=== PATIENT | female | born 1955 | race Caucasian/White ===

== ENCOUNTER 2018-08-05 10:51 | Inpatient (IN) | payer MEDICARE ==
--- NOTE | 2018-08-05 11:08 | C.PDOC ---
History Of Present Illness 62 y/o female pt with hx of CABG presents to the ER complaining of palpitations. Pt has a port in her right upper chest. Pt has lymphoma and is receiving chemotherapy. Currently pt has a fever in the ER. Pt denies cough, chills, chest pain, nausea, SOB and vomiting. Pt notes she is visiting for the holiday and is from [place]. <Mami Childress - Last Filed: 08/05/18 14:10> History Per: Patient History/Exam Limitations: no limitations Onset/Duration Of Symptoms: Hrs Current Symptoms Are (Timing): Still Present <Mami Childress - Last Filed: 08/05/18 14:10> <Chaim Mccarty M - Last Filed: 08/12/18 13:14> Time Seen by Provider: 08/05/18 10:55 Chief Complaint (Nursing): Palpitations Past Medical History Reviewed: Historical Data, Nursing Documentation, Vital Signs Vital Signs: Last Vital Signs Temp 101.5 F H 08/05/18 11:02 Pulse 162 H 08/05/18 11:02 Resp 28 H 08/05/18 11:02 BP 129/91 H 08/05/18 11:02 Pulse Ox 99 08/05/18 11:02 Surgical History: CABG Family History: States: Unknown Family Hx <Mami Childress - Last Filed: 08/05/18 14:10> Vital Signs: Last Vital Signs Temp 97.8 F 08/10/18 15:00 Pulse 71 08/10/18 15:00 Resp 20 08/10/18 15:00 BP 101/63 08/10/18 15:00 Pulse Ox 96 08/10/18 15:00 <Chaim Mccarty M - Last Filed: 08/12/18 13:14> Review Of Systems Except As Marked, All Systems Reviewed And Found Negative. Constitutional: Positive for: Fever. Negative for: Chills Cardiovascular: Positive for: Palpitations. Negative for: Chest Pain Respiratory: Negative for: Cough, Shortness of Breath Gastrointestinal: Negative for: Nausea, Vomiting <Mami Childress - Last Filed: 08/05/18 14:10> Physical Exam - Physical Exam Appears: Non-toxic, No Acute Distress Skin: Normal Color, Warm, Dry Head: Normacephalic Eye(s): bilateral: Normal Inspection, EOMI Chest: Symmetrical, No Deformity Cardiovascular: Other (A-fib) Respiratory: Normal Breath Sounds Extremity: Normal ROM (x4) Neurological/Psych: Oriented x3, Normal Speech, Normal Cognition <FiorMami Jimmy - Last Filed: 08/05/18 14:10> ED Course And Treatment - Laboratory Results Result Diagrams: 08/05/18 11:12 08/05/18 11:12 Lab Interpretation: Abnormal ECG: Interpreted By Me, Viewed By Me ECG Rhythm: Atrial Fibrillation Rate From EC O2 Sat by Pulse Oximetry: 99 (RA) Pulse Ox Interpretation: Normal - Radiology CXR: Interpreted by Me CXR Interpretation: Yes: No Acute Disease Progress Note: Treated with cardizem 10 mg IV bolus and Cardizem drip. Patient treated with vancomycin and zosyn. Treated with 2 Liters NSS. tylenol 650 mg PO. Case discussed with Dr Vega and accepts for ICU. Case discussed with Dr Tyler Beavers who accepts patient Reassessment Condition: Unchanged - Physician Consult Information Physician Contacted: Una Beavers Outcome Of Conversation: admit <Mami Childress - Last Filed: 08/05/18 14:10> - Laboratory Results Result Diagrams: 08/10/18 07:56 08/10/18 07:56 <Chaim Mccarty - Last Filed: 08/12/18 13:14> Medical Decision Making Medical Decision Making: Impression: Palpitations plans: -- EKG -- chem labs -- blood work -- cardizem -- IV fluids -- blood cx -- urine cx -- UA <Mami Childress - Last Filed: 08/05/18 14:10> Disposition - Disposition Disposition Time: 13:00 - POA Present On Arrival: None <Mami Childress - Last Filed: 08/05/18 14:10> <Chaim Mccarty - Last Filed: 08/12/18 13:14> - Disposition Disposition: HOSPITALIZED Condition: CRITICAL - Clinical Impression Clinical Impression: Atrial fibrillation with rapid ventricular response, Sepsis - PA / TRAINING PROJECT MANAGER / Resident Statement / has reviewed & agrees with the documentation as recorded. - Scribe Statement The provider has reviewed the documentation as recorded by the [facility] Do All medical record entries made by the Scribe were at my direction and personally dictated by me. I have reviewed the chart and agree that the record accurately reflects my personal performance of the history, physical exam, medical decision making, and the department course for this patient. I have also personally directed, reviewed, and agree with the discharge instructions and disposition. <Mami Childress - Last Filed: 08/05/18 14:10>
[2018-08-05 11:17] LABS: BASO % 3.2 % (0.0-2.0); EOS % 4.1 % (0.0-4.0); HEMOGLOBIN 10.1 g/dL (11.0-16.0); LYMPH # 0.1 K/uL (1.0-4.3); LYMPH % 20.5 % (20.0-40.0); MEAN CELL VOLUME 78.7 fL (81.0-99.0); MEAN CORPUSCULAR HEMOGLOBIN 25.9 pg (27.0-31.0); MEAN CORPUSCULAR HGB CONC 32.9 g/dL (33.0-37.0); MONO # 0.2 K/uL (0.0-0.8); NEUT % 10.8 % (50.0-75.0); NRBC % 0.2 % (0.0-2.0); RBC 3.9 Mil/uL (3.80-5.20); RED CELL DISTRIBUTION WIDTH 18.8 % (11.5-14.5)
[2018-08-05] MEDS ORDERED: Sodium Chloride 0.9% 1,000 ML IV ONE ×2 (11:30→11:58)
[2018-08-05 11:38] LABS: VENOUS BLOOD GAS BASE EXCESS 6.4 mmol/L (0.0-2.0); VENOUS BLOOD GAS PCO2 36 mmHg (40-60); VENOUS BLOOD GAS PO2 18 mm/Hg (30-55); VENOUS BLOOD PH 7.52 (7.32-7.43)
[2018-08-05 11:40] LABS: WHITE BLOOD COUNT 0.4 K/uL (4.8-10.8)
[2018-08-05 11:42] LABS: MONO % 61.4 % (0.0-10.0)
[2018-08-05 11:43] LABS: INR 1.5; PROTHROMBIN TIME 16.1 SECONDS (9.7-12.2)
[2018-08-05 11:49] LABS: ALB/GLOB RATIO 1.3 (1.0-2.1); ALBUMIN 3.5 g/dL (3.5-5.0); ALT/SGPT 13 U/L (9-52); AST/SGOT 12 U/L (14-36); BLOOD UREA NITROGEN 11 mg/dL (7-17); CALCIUM 8.8 mg/dl (8.6-10.4); GFR NON-AFRICAN AMERICAN > 60
[2018-08-05] MEDS ORDERED: Piperacillin/Tazobact 3.375 gm 100 ML IV STA (11:54)
[2018-08-05 11:55] LABS: B-TYPE NATRIURETIC PEPTIDE 8060 pg/mL (0-900)
[2018-08-05] MEDS ORDERED: Vancomycin 1 GM 1 GM/250 ML BAG IV SCH (12:00)
[2018-08-05] MEDS ORDERED: Piperacillin/Tazobact 3.375 gm 100 ML IVPB ONE (12:02)
[2018-08-05] MEDS ORDERED: Vancomycin 1 GM 1 GM/250 ML BAG IVPB ONE (12:03)
--- NOTE | 2018-08-05 13:08 | CP.PCM.HP ---
History of Present Illness - History of Present Illness History of Present Illness: pt presented to ed for palpitation nausea and vomiting befor coming pt was on chemotherapy treatment for lymphoma Present on Admission - Present on Admission Any Indicators Present on Admission: Yes Review of Systems - Review of Systems Systems not reviewed;Unavailable: Acuity of Condition, Unstable Vital Signs - Constitutional Constitutional: Anorexia, Fever - EENT Eyes: As Per HPI Ears: As Per HPI Nose/Mouth/Throat: As Per HPI - Breasts Breasts: As Per HPI - Cardiovascular Cardiovascular: Irregular Heart Rhythm, Leg Edema - Respiratory Respiratory: As Per HPI - Gastrointestinal Gastrointestinal: As Per HPI - Genitourinary Genitourinary: As Per HPI - Reproductive: Female Reproductive:Female: As Per HPI - Menstruation Menstruation: As Per HPI - Musculoskeletal Musculoskeletal: As Per HPI - Integumentary Integumentary: As Per HPI - Neurological Neurological: As Per HPI - Endocrine Endocrine: As Per HPI - Hematologic/Lymphatic Hematologic: As Per HPI Past Patient History - Past Social History Smoking Status: Never Smoked - CARDIAC Hx Atrial Fibrillation: Yes Other/Comment: quadruple bypass - ENDOCRINE/METABOLIC Hx Diabetes Mellitus Type 2: Yes - PSYCHIATRIC Hx Substance Use: No - SURGICAL HISTORY Hx Coronary Artery Bypass Graft: Yes Meds Allergies/Adverse Reactions: Allergies Allergy/AdvReac Type Severity Reaction Status Date / Time No Known Allergies Allergy Verified 08/05/18 10:58 Physical Exam - Constitutional Appears: In Acute Distress - Head Exam Head Exam: ATRAUMATIC - Eye Exam Eye Exam: Normal appearance Pupil Exam: NORMAL ACCOMODATION - ENT Exam Additional comments: small ulcer mouth - Neck Exam Neck exam: Positive for: Full Rom - Respiratory Exam Respiratory Exam: Decreased Breath Sounds - Cardiovascular Exam Cardiovascular Exam: Tachycardia, Irregular Rhythm - GI/Abdominal Exam GI & Abdominal Exam: Normal Bowel Sounds - Extremities Exam Extremities exam: Positive for: normal inspection, pedal edema - Back Exam Back exam: NORMAL INSPECTION - Neurological Exam Neurological exam: Alert, Oriented x3 - Psychiatric Exam Psychiatric exam: Normal Affect - Skin Skin Exam: Normal Color Results - Vital Signs Recent Vital Signs: Last Vital Signs Temp 101.5 F H 08/05/18 11:02 Pulse 151 H 08/05/18 12:22 Resp 18 08/05/18 12:22 BP 120/82 08/05/18 12:22 Pulse Ox 98 08/05/18 12:22 - Labs Result Diagrams: 08/05/18 11:12 08/05/18 11:12 Labs: Laboratory Results - last 24 hr 08/05/18 08/05/18 08/05/18 11:12 11:12 11:12 WBC 0.4 L* RBC 3.90 Hgb 10.1 L Hct 30.7 L MCV 78.7 L MCH 25.9 L MCHC 32.9 L RDW 18.8 H Plt Count 105 L MPV 8.0 Neut % (Auto) 10.8 L Lymph % (Auto) 20.5 [place] % (Auto) 61.4 H Eos % (Auto) 4.1 H Baso % (Auto) 3.2 H Neut # (Auto) 0.0 L Lymph # (Auto) 0.1 L [place] # (Auto) 0.2 Eos # (Auto) 0.0 Baso # (Auto) 0.0 Total Counted Cancelled Neutrophils % (Manual) Cancelled Band Neutrophils % Cancelled Lymphocytes % (Manual) Cancelled Reactive Lymphs % Cancelled Monocytes % (Manual) Cancelled Eosinophils % (Manual) Cancelled Basophils % (Manual) Cancelled Metamyelocytes % Cancelled Myelocytes % Cancelled Promyelocytes % Cancelled Blast Cells % Cancelled Plasma Cell % (Manual) Cancelled Nucleated RBC % Cancelled Hypersegmented Polys Cancelled Smudge Cells Cancelled Toxic Granulation Cancelled Dohle Bodies Cancelled Joce Rods Cancelled Platelet Estimate Cancelled Plt Clumps, EDTA Cancelled Large Platelets Cancelled Giant Platelets Cancelled RBC Morphology Cancelled Polychromasia Cancelled Hypochromasia (manual) Cancelled Poikilocytosis (manual Cancelled Basophilic Stippling Cancelled Anisocytosis (manual) Cancelled Microcytosis (manual) Cancelled Macrocytosis (manual) Cancelled Spherocytes Cancelled Sickle Cells Cancelled Target Cells Cancelled Tear Drop Cells Cancelled Ovalocytes Cancelled Stomatocytes Cancelled Helmet Cells Cancelled [place] Bodies Cancelled Edgardo Cells Cancelled Acanthocytes (Spur) Cancelled Rouleaux Cancelled Schistocytes Cancelled PT 16.1 H INR 1.5 APTT 33 pO2 VBG pH VBG pCO2 VBG HCO3 VBG Total CO2 VBG Base Excess VBG Potassium Glucose Lactate Crit Value Called To Crit Value Called By Crit Value Read Back Blood Gas Notified Time Sodium 133 Potassium 4.0 Chloride 92 L Carbon Dioxide 28 Anion Gap 18 BUN 11 Creatinine 0.7 Est GFR ( Amer) > 60 Est GFR (Non-Af Amer) > 60 Random Glucose 445 H* Calcium 8.8 Total Bilirubin 1.6 H AST 12 L ALT 13 Alkaline Phosphatase 102 Troponin I 0.2030 H* NT-Pro-B Natriuret Pep 8060 H Total Protein 6.1 L Albumin 3.5 Globulin 2.6 Albumin/Globulin Ratio 1.3 TSH 3rd Generation 1.02 Venous Blood Potassium 08/05/18 11:30 WBC RBC Hgb Hct MCV MCH MCHC RDW Plt Count MPV Neut % (Auto) Lymph % (Auto) [place] % (Auto) Eos % (Auto) Baso % (Auto) Neut # (Auto) Lymph # (Auto) [place] # (Auto) Eos # (Auto) Baso # (Auto) Total Counted Neutrophils % (Manual) Band Neutrophils % Lymphocytes % (Manual) Reactive Lymphs % Monocytes % (Manual) Eosinophils % (Manual) Basophils % (Manual) Metamyelocytes % Myelocytes % Promyelocytes % Blast Cells % Plasma Cell % (Manual) Nucleated RBC % Hypersegmented Polys Smudge Cells Toxic Granulation Dohle Bodies Joce Rods Platelet Estimate Plt Clumps, EDTA Large Platelets Giant Platelets RBC Morphology Polychromasia Hypochromasia (manual) Poikilocytosis (manual Basophilic Stippling Anisocytosis (manual) Microcytosis (manual) Macrocytosis (manual) Spherocytes Sickle Cells Target Cells Tear Drop Cells Ovalocytes Stomatocytes Helmet Cells [place] Bodies Edgardo Cells Acanthocytes (Spur) Rouleaux Schistocytes PT INR APTT pO2 18 L VBG pH 7.52 H VBG pCO2 36 L VBG HCO3 28.2 VBG Total CO2 30.5 H VBG Base Excess 6.4 H VBG Potassium 3.8 Glucose 459 H* Lactate 2.2 H Crit Value Called To Horacio Crit Value Called By Lary galloway Crit Value Read Back Y Blood Gas Notified Time 1138 Sodium 136.0 Potassium Chloride 100.0 Carbon Dioxide Anion Gap BUN Creatinine Est GFR ( Amer) Est GFR (Non-Af Amer) Random Glucose Calcium Total Bilirubin AST ALT Alkaline Phosphatase Troponin I NT-Pro-B Natriuret Pep Total Protein Albumin Globulin Albumin/Globulin Ratio TSH 3rd Generation Venous Blood Potassium 3.8 Assessment & Plan - Assessment and Plan (Free Text) Assessment: ac fever lecopeania dm palpitation cardiac arrythmia Plan: admit to icu and consultations ordered - Date & Time Date: 08/05/18 Time: 13:15
[2018-08-05] MEDS ORDERED: Insulin Detemir 100 units/ml Vial (Levemir) SC ONE (13:30)
[2018-08-05 13:33] LABS: SQUAMOUS EPITHIAL 17 /hpf (0-5); URINE BACTERIA FEW (<OCC); URINE BILIRUBIN NEGATIVE (NEGATIVE); URINE BLOOD 1+ (NEGATIVE); URINE CLARITY Hazy (Clear); URINE COLOR Yellow (YELLOW); URINE GLUCOSE (UA) 3+ mg/dL (Normal); URINE LEUKOCYTE ESTERASE NEG Leu/uL (Negative); URINE PROTEIN 2+ mg/dL (NEGATIVE)
--- NOTE | 2018-08-05 13:35 | CP.PCM.CON ---
History of Present Illness - History of Present Illness History of Present Illness: 62 year old female with a history of lymphoma (unknown type) on chemotherapy (unknown chemo) in [place], presenting with fatigue and N/V, found to be pancytopenic and neutropenic. The patient notes to visiting family for the holidays and feeling more fatigued with N/V. Her family felt she did not look well and brought her to the hospital. In the ER she was found to be pancytopenic and neutropenic. She denies fevers and chills. Past medical history: lymphoma Past surgical history: Denies Family history: Denies hematologic and oncologic problems Social history: Denies tobacco, alcohol, and illicit drug use. Allergies: NKA Review of systems: All remaining review of systems including HEENT, cardiovascular, respiratory, gastrointestinal, genitourinary, musculoskeletal, dermatologic, neurologic, and psychiatric are negative unless mentioned in the HPI. Past Patient History - Past Social History Smoking Status: Never Smoked - CARDIAC Hx Atrial Fibrillation: Yes Other/Comment: quadruple bypass - ENDOCRINE/METABOLIC Hx Diabetes Mellitus Type 2: Yes - PSYCHIATRIC Hx Substance Use: No - SURGICAL HISTORY Hx Coronary Artery Bypass Graft: Yes Meds Allergies/Adverse Reactions: Allergies Allergy/AdvReac Type Severity Reaction Status Date / Time No Known Allergies Allergy Verified 08/05/18 10:58 - Medications Medications: Current Medications Diltiazem HCl 125 mg/ Sodium (Chloride) 125 mls @ 5 mls/hr IV .Q24H STA; Protocol Stop: 08/06/18 11:14 Last Admin: 08/05/18 11:34 Dose: 5 mls/hr Vancomycin HCl (Vancomycin 1gm In Normal Saline Addvantage) 1 gm in 250 mls @ 166.667 mls/hr IV STAT TAYLER; Protocol Physical Exam - Head Exam Head Exam: ATRAUMATIC - Eye Exam Eye Exam: Normal appearance - ENT Exam ENT Exam: Mucous Membranes Dry - Respiratory Exam Respiratory Exam: NORMAL BREATHING PATTERN - Cardiovascular Exam Cardiovascular Exam: +S1, +S2 - GI/Abdominal Exam GI & Abdominal Exam: Normal Bowel Sounds - Extremities Exam Extremities exam: Positive for: pedal edema - Neurological Exam Neurological exam: Oriented x3 - Psychiatric Exam Psychiatric exam: Normal Affect, Normal Mood - Skin Skin Exam: Warm Results - Vital Signs Recent Vital Signs: Last Vital Signs Temp 101.5 F H 11/21/18 11:02 Pulse 151 H 08/05/18 12:22 Resp 18 08/05/18 12:22 BP 120/82 08/05/18 12:22 Pulse Ox 98 08/05/18 12:22 - Labs Result Diagrams: 08/09/18 08:25 08/09/18 08:25 Labs: Laboratory Results - last 24 hr 08/05/18 08/05/18 08/05/18 11:12 11:12 11:12 WBC 0.4 L* RBC 3.90 Hgb 10.1 L Hct 30.7 L MCV 78.7 L MCH 25.9 L MCHC 32.9 L RDW 18.8 H Plt Count 105 L MPV 8.0 Neut % (Auto) 10.8 L Lymph % (Auto) 20.5 [place] % (Auto) 61.4 H Eos % (Auto) 4.1 H Baso % (Auto) 3.2 H Neut # (Auto) 0.0 L Lymph # (Auto) 0.1 L [place] # (Auto) 0.2 Eos # (Auto) 0.0 Baso # (Auto) 0.0 Total Counted Cancelled Neutrophils % (Manual) Cancelled Band Neutrophils % Cancelled Lymphocytes % (Manual) Cancelled Reactive Lymphs % Cancelled Monocytes % (Manual) Cancelled Eosinophils % (Manual) Cancelled Basophils % (Manual) Cancelled Metamyelocytes % Cancelled Myelocytes % Cancelled Promyelocytes % Cancelled Blast Cells % Cancelled Plasma Cell % (Manual) Cancelled Nucleated RBC % Cancelled Hypersegmented Polys Cancelled Smudge Cells Cancelled Toxic Granulation Cancelled Dohle Bodies Cancelled Joce Rods Cancelled Platelet Estimate Cancelled Plt Clumps, EDTA Cancelled Large Platelets Cancelled Giant Platelets Cancelled RBC Morphology Cancelled Polychromasia Cancelled Hypochromasia (manual) Cancelled Poikilocytosis (manual Cancelled Basophilic Stippling Cancelled Anisocytosis (manual) Cancelled Microcytosis (manual) Cancelled Macrocytosis (manual) Cancelled Spherocytes Cancelled Sickle Cells Cancelled Target Cells Cancelled Tear Drop Cells Cancelled Ovalocytes Cancelled Stomatocytes Cancelled Helmet Cells Cancelled [place] Bodies Cancelled Edgardo Cells Cancelled Acanthocytes (Spur) Cancelled Rouleaux Cancelled Schistocytes Cancelled PT 16.1 H INR 1.5 APTT 33 pO2 VBG pH VBG pCO2 VBG HCO3 VBG Total CO2 VBG Base Excess VBG Potassium Glucose Lactate Crit Value Called To Crit Value Called By Crit Value Read Back Blood Gas Notified Time Sodium 133 Potassium 4.0 Chloride 92 L Carbon Dioxide 28 Anion Gap 18 BUN 11 Creatinine 0.7 Est GFR ( Amer) > 60 Est GFR (Non-Af Amer) > 60 Random Glucose 445 H* Calcium 8.8 Total Bilirubin 1.6 H AST 12 L ALT 13 Alkaline Phosphatase 102 Troponin I 0.2030 H* NT-Pro-B Natriuret Pep 8060 H Total Protein 6.1 L Albumin 3.5 Globulin 2.6 Albumin/Globulin Ratio 1.3 TSH 3rd Generation 1.02 Venous Blood Potassium 08/05/18 11:30 WBC RBC Hgb Hct MCV MCH MCHC RDW Plt Count MPV Neut % (Auto) Lymph % (Auto) [place] % (Auto) Eos % (Auto) Baso % (Auto) Neut # (Auto) Lymph # (Auto) [place] # (Auto) Eos # (Auto) Baso # (Auto) Total Counted Neutrophils % (Manual) Band Neutrophils % Lymphocytes % (Manual) Reactive Lymphs % Monocytes % (Manual) Eosinophils % (Manual) Basophils % (Manual) Metamyelocytes % Myelocytes % Promyelocytes % Blast Cells % Plasma Cell % (Manual) Nucleated RBC % Hypersegmented Polys Smudge Cells Toxic Granulation Dohle Bodies Joce Rods Platelet Estimate Plt Clumps, EDTA Large Platelets Giant Platelets RBC Morphology Polychromasia Hypochromasia (manual) Poikilocytosis (manual Basophilic Stippling Anisocytosis (manual) Microcytosis (manual) Macrocytosis (manual) Spherocytes Sickle Cells Target Cells Tear Drop Cells Ovalocytes Stomatocytes Helmet Cells [place] Bodies Shaw Cells Acanthocytes (Spur) Rouleaux Schistocytes PT INR APTT pO2 18 L VBG pH 7.52 H VBG pCO2 36 L VBG HCO3 28.2 VBG Total CO2 30.5 H VBG Base Excess 6.4 H VBG Potassium 3.8 Glucose 459 H* Lactate 2.2 H Crit Value Called To Horacio Crit Value Called By Lary galloway Crit Value Read Back Y Blood Gas Notified Time 1138 Sodium 136.0 Potassium Chloride 100.0 Carbon Dioxide Anion Gap BUN Creatinine Est GFR ( Amer) Est GFR (Non-Af Amer) Random Glucose Calcium Total Bilirubin AST ALT Alkaline Phosphatase Troponin I NT-Pro-B Natriuret Pep Total Protein Albumin Globulin Albumin/Globulin Ratio TSH 3rd Generation Venous Blood Potassium 3.8 Assessment & Plan (1) Pancytopenia Assessment and Plan: secondary to recent chemotherapy with severe neutropenia; afebrile neutropenic precautions will start growth factors transfusion support PRN Status: Acute (2) Lymphoma Assessment and Plan: unknown type and treatment outpatient f/u with primary oncologist in [place] Thank you for this interesting consult. Status: Acute
--- NOTE | 2018-08-05 14:08 | CP.PCM.CON ---
<Chay Fong - Last Filed: 08/05/18 18:26> History of Present Illness - History of Present Illness History of Present Illness: PGY-1 ICU Consult note for Dr. Vega Patient is a 62 year old female with PMHx of lymphoma on chemotherapy, CAD s/p CABG, 2 x CVA, atrial fibrillation, HTN, and DM-2 presenting with palpitations. Patient states that she is visiting from [place] for the holidays and her cousin told her that she looks pale and unwell so she was told to go to the ED. She states that she gets palpitations once in a while and it is not new to her. She admits to generalized fatigue for the last few days. She denies headaches, dizziness, bleeding, melena, or unintentional weight loss. Patient further denies cough, chills, chest pain, nausea, SOB, and vomiting. In ED, code sepsis was called. T: 101.5, HR: 134, Lactate:2.2. PMHx: Lymphoma on chemotherapy, CAD s/p CABG, 2X CVA, atrial fibrillation, HTN, and DM-2 PSHx: Cholecystectomy, CABG Family Hx: Mother had heart disease, father dies of a stroke at age 47, aunt had cervical cancer. Allergies: NKDA Social Hx: denies alcohol, tobacco, drug use. Worked as a social work coordinator. Medications: Review of Systems - Review of Systems All systems: reviewed and no additional remarkable complaints except Past Patient History - Past Social History Smoking Status: Never Smoked - CARDIAC Hx Atrial Fibrillation: Yes Other/Comment: quadruple bypass - ENDOCRINE/METABOLIC Hx Diabetes Mellitus Type 2: Yes - PSYCHIATRIC Hx Substance Use: No - SURGICAL HISTORY Hx Coronary Artery Bypass Graft: Yes Meds Allergies/Adverse Reactions: Allergies Allergy/AdvReac Type Severity Reaction Status Date / Time No Known Allergies Allergy Verified 08/05/18 10:58 - Medications Medications: Current Medications Diltiazem HCl 125 mg/ Sodium (Chloride) 125 mls @ 5 mls/hr IV .Q24H STA; Protocol Stop: 08/06/18 11:14 Last Admin: 08/05/18 11:34 Dose: 5 mls/hr Vancomycin HCl (Vancomycin 1gm In Normal Saline Addvantage) 1 gm in 250 mls @ 166.667 mls/hr IV STAT TAYLER; Protocol Physical Exam - Constitutional Appears: Non-toxic, No Acute Distress - Head Exam Head Exam: ATRAUMATIC, NORMOCEPHALIC - Eye Exam Eye Exam: EOMI, Normal appearance, PERRL - ENT Exam ENT Exam: Mucous Membranes Dry - Respiratory Exam Respiratory Exam: Clear to Auscultation Bilateral, NORMAL BREATHING PATTERN. absent: Accessory Muscle Use, Rales, Rhonchi, Wheezes, Respiratory Distress - Cardiovascular Exam Cardiovascular Exam: Tachycardia, Irregular Rhythm, +S1, +S2. absent: REGULAR RHYTHM, Rubs, Systolic Murmur - GI/Abdominal Exam GI & Abdominal Exam: Normal Bowel Sounds, Soft. absent: Tenderness - Extremities Exam Extremities exam: Negative for: calf tenderness Additional comments: Pitting edema noted on bilateral LE - Neurological Exam Neurological exam: Alert, CN II-XII Intact, Oriented x3 - Psychiatric Exam Psychiatric exam: Normal Affect, Normal Mood - Skin Skin Exam: Dry, Intact, Normal Color, Warm Results - Vital Signs Recent Vital Signs: Last Vital Signs Temp 101.9 F H 08/05/18 13:51 Pulse 132 H 08/05/18 13:51 Resp 20 08/05/18 13:51 BP 125/62 08/05/18 13:51 Pulse Ox 97 08/05/18 13:51 - Labs Result Diagrams: 08/05/18 11:12 08/05/18 11:12 Labs: Laboratory Results - last 24 hr 08/05/18 08/05/18 08/05/18 11:12 11:12 11:12 WBC 0.4 L* RBC 3.90 Hgb 10.1 L Hct 30.7 L MCV 78.7 L MCH 25.9 L MCHC 32.9 L RDW 18.8 H Plt Count 105 L MPV 8.0 Neut % (Auto) 10.8 L Lymph % (Auto) 20.5 [place] % (Auto) 61.4 H Eos % (Auto) 4.1 H Baso % (Auto) 3.2 H Neut # (Auto) 0.0 L Lymph # (Auto) 0.1 L [place] # (Auto) 0.2 Eos # (Auto) 0.0 Baso # (Auto) 0.0 Total Counted Cancelled Neutrophils % (Manual) Cancelled Band Neutrophils % Cancelled Lymphocytes % (Manual) Cancelled Reactive Lymphs % Cancelled Monocytes % (Manual) Cancelled Eosinophils % (Manual) Cancelled Basophils % (Manual) Cancelled Metamyelocytes % Cancelled Myelocytes % Cancelled Promyelocytes % Cancelled Blast Cells % Cancelled Plasma Cell % (Manual) Cancelled Nucleated RBC % Cancelled Hypersegmented Polys Cancelled Smudge Cells Cancelled Toxic Granulation Cancelled Dohle Bodies Cancelled Joce Rods Cancelled Platelet Estimate Cancelled Plt Clumps, EDTA Cancelled Large Platelets Cancelled Giant Platelets Cancelled RBC Morphology Cancelled Polychromasia Cancelled Hypochromasia (manual) Cancelled Poikilocytosis (manual Cancelled Basophilic Stippling Cancelled Anisocytosis (manual) Cancelled Microcytosis (manual) Cancelled Macrocytosis (manual) Cancelled Spherocytes Cancelled Sickle Cells Cancelled Target Cells Cancelled Tear Drop Cells Cancelled Ovalocytes Cancelled Stomatocytes Cancelled Helmet Cells Cancelled [place] Bodies Cancelled [place] Cells Cancelled Acanthocytes (Spur) Cancelled Rouleaux Cancelled Schistocytes Cancelled PT 16.1 H INR 1.5 APTT 33 pO2 VBG pH VBG pCO2 VBG HCO3 VBG Total CO2 VBG Base Excess VBG Potassium Glucose Lactate Crit Value Called To Crit Value Called By Crit Value Read Back Blood Gas Notified Time Sodium 133 Potassium 4.0 Chloride 92 L Carbon Dioxide 28 Anion Gap 18 BUN 11 Creatinine 0.7 Est GFR ( Amer) > 60 Est GFR (Non-Af Amer) > 60 Random Glucose 445 H* Calcium 8.8 Total Bilirubin 1.6 H AST 12 L ALT 13 Alkaline Phosphatase 102 Troponin I 0.2030 H* NT-Pro-B Natriuret Pep 8060 H Total Protein 6.1 L Albumin 3.5 Globulin 2.6 Albumin/Globulin Ratio 1.3 TSH 3rd Generation 1.02 Venous Blood Potassium Urine Color Urine Clarity Urine pH Ur Specific [place] Urine Protein Urine Glucose (UA) Urine Ketones Urine Blood Urine Nitrate Urine Bilirubin Urine Urobilinogen Ur Leukocyte Esterase Urine WBC (Auto) Urine RBC (Auto) Ur Squamous Epith Cells Urine Bacteria 08/05/18 08/05/18 11:30 13:21 WBC RBC Hgb Hct MCV MCH MCHC RDW Plt Count MPV Neut % (Auto) Lymph % (Auto) [place] % (Auto) Eos % (Auto) Baso % (Auto) Neut # (Auto) Lymph # (Auto) [place] # (Auto) Eos # (Auto) Baso # (Auto) Total Counted Neutrophils % (Manual) Band Neutrophils % Lymphocytes % (Manual) Reactive Lymphs % Monocytes % (Manual) Eosinophils % (Manual) Basophils % (Manual) Metamyelocytes % Myelocytes % Promyelocytes % Blast Cells % Plasma Cell % (Manual) Nucleated RBC % Hypersegmented Polys Smudge Cells Toxic Granulation Dohle Bodies Joce Rods Platelet Estimate Plt Clumps, EDTA Large Platelets Giant Platelets RBC Morphology Polychromasia Hypochromasia (manual) Poikilocytosis (manual Basophilic Stippling Anisocytosis (manual) Microcytosis (manual) Macrocytosis (manual) Spherocytes Sickle Cells Target Cells Tear Drop Cells Ovalocytes Stomatocytes Helmet Cells [place] Bodies [place] Cells Acanthocytes (Spur) Rouleaux Schistocytes PT INR APTT pO2 18 L VBG pH 7.52 H VBG pCO2 36 L VBG HCO3 28.2 VBG Total CO2 30.5 H VBG Base Excess 6.4 H VBG Potassium 3.8 Glucose 459 H* Lactate 2.2 H Crit Value Called To Horacio Crit Value Called By Lary galloway Crit Value Read Back Y Blood Gas Notified Time 1138 Sodium 136.0 Potassium Chloride 100.0 Carbon Dioxide Anion Gap BUN Creatinine Est GFR ( Amer) Est GFR (Non-Af Amer) Random Glucose Calcium Total Bilirubin AST ALT Alkaline Phosphatase Troponin I NT-Pro-B Natriuret Pep Total Protein Albumin Globulin Albumin/Globulin Ratio TSH 3rd Generation Venous Blood Potassium 3.8 Urine Color Yellow Urine Clarity Hazy Urine pH 5.0 Ur Specific [place] 1.022 Urine Protein 2+ H Urine Glucose (UA) 3+ H Urine Ketones 1+ H Urine Blood 1+ H Urine Nitrate Positive H Urine Bilirubin Negative Urine Urobilinogen 4.0 H Ur Leukocyte Esterase Neg Urine WBC (Auto) 18 H Urine RBC (Auto) 6 H Ur Squamous Epith Cells 17 H Urine Bacteria Few H Assessment & Plan - Assessment and Plan (Free Text) Assessment: Patient is a 62 year old female with PMHx of lymphoma on chemotherapy, CAD s/p CABG, 2 x CVA, atrial fibrillation, HTN, and DM-2 presenting with palpitations. Plan: Neuro: - AAO X 3 Cardiovascular: - Diltiazem 125mg IV - Xarelto 15mg PO QD - Troponin: 0.2030 - ProBNP: 8060 - Echo: f/u Pulm: - ABG: pH 7.52, pO2 18, pCO2 36, Lactate 2.2 - Venous duplex: f/u - CXR: no active disease GI: - Heart healthy, low sodium diet : - BUN/Cr: 11/0.7 - UA (08/05): + Nitrate, + WBC, + bacteria - Vancomycin and Zosyn given in ED - Urine cx: f/u Endo: - Glucose on admission: 459 - ISS - Hypoglycemia protocol - Accuchecks ACHS Heme/Onc: - History of Lymphoma on chemotherapy - Heme/onc consulted, Dr. Lowery - Lactate: 2.2 - WBC: 0.2 - Neutropenic precautions ID: - Code sepsis called in ED - Tmax: 101.5 - WBC: 0.2 - Lactate 2.2 - Neutropenic precautions - ID consulted, Dr. Grant - Vancomycin and Zosyn given in ED - Urinne cx:f/u - Blood cx: f/u Derm: - Left ingrown toenail - Podiatry consulted, Dr. De Luna PPx: - Xarelto 15mg PO QD Case discussed with attending, Dr. Gary Fong, PGY-1 <Fortunato Vega - Last Filed: 08/05/18 18:33> Meds - Medications Medications: Current Medications Acetaminophen (Tylenol 325mg Tab) 650 mg PO Q6 PRN PRN Reason: Fever >100.4 F Dextrose (Glutose 15) 0 gm PO ONCE PRN; Protocol PRN Reason: Hypoglycemia Protocol Dextrose (Dextrose 50% Inj) 0 ml IV STAT PRN; Protocol PRN Reason: Hypoglycemia Protocol Glucagon (Glucagen Diagnostic Kit) 0 mg IM STAT PRN; Protocol PRN Reason: Hypoglycemia Protocol Diltiazem HCl 125 mg/ Sodium (Chloride) 125 mls @ 5 mls/hr IV .Q24H STA; Protocol Stop: 08/06/18 11:14 Last Titration: 08/05/18 14:30 Dose: 10 mg/hr, 10 mls/hr Vancomycin HCl (Vancomycin 1gm In Normal Saline Addvantage) 1 gm in 250 mls @ 166.667 mls/hr IV STAT TAYLER; Protocol Dextrose (Dextrose 5% In Water 1000 Ml) 1,000 mls @ 0 mls/hr IV .Q0M PRN; Protocol PRN Reason: Hypoglycemia Protocol Influenza Virus Vaccine (Fluzone Quad [id number]) 60 mcg IM .ONCE ONE Stop: 08/07/18 10:01 Insulin Human Regular (Novolin R) 0 unit SC ACHS [facility]; Protocol Last Admin: 08/05/18 16:26 Dose: 10 units Rivaroxaban (Xarelto) 15 mg PO DAILY [facility] Last Admin: 08/05/18 17:11 Dose: 15 mg Results - Vital Signs Recent Vital Signs: Last Vital Signs Temp 99.2 F 08/05/18 16:00 Pulse 96 H 08/05/18 17:10 Resp 21 08/05/18 17:10 BP 119/90 08/05/18 16:20 Pulse Ox 100 08/05/18 17:10 - Labs Result Diagrams: 08/05/18 11:12 08/05/18 11:12 Labs: Laboratory Results - last 24 hr 08/05/18 08/05/18 08/05/18 11:12 11:12 11:12 WBC 0.4 L* RBC 3.90 Hgb 10.1 L Hct 30.7 L MCV 78.7 L MCH 25.9 L MCHC 32.9 L RDW 18.8 H Plt Count 105 L MPV 8.0 Neut % (Auto) 10.8 L Lymph % (Auto) 20.5 [place] % (Auto) 61.4 H Eos % (Auto) 4.1 H Baso % (Auto) 3.2 H Neut # (Auto) 0.0 L Lymph # (Auto) 0.1 L [place] # (Auto) 0.2 Eos # (Auto) 0.0 Baso # (Auto) 0.0 Total Counted Cancelled Neutrophils % (Manual) Cancelled Band Neutrophils % Cancelled Lymphocytes % (Manual) Cancelled Reactive Lymphs % Cancelled Monocytes % (Manual) Cancelled Eosinophils % (Manual) Cancelled Basophils % (Manual) Cancelled Metamyelocytes % Cancelled Myelocytes % Cancelled Promyelocytes % Cancelled Blast Cells % Cancelled Plasma Cell % (Manual) Cancelled Nucleated RBC % Cancelled Hypersegmented Polys Cancelled Smudge Cells Cancelled Toxic Granulation Cancelled Dohle Bodies Cancelled Joce Rods Cancelled Platelet Estimate Cancelled Plt Clumps, EDTA Cancelled Large Platelets Cancelled Giant Platelets Cancelled RBC Morphology Cancelled Polychromasia Cancelled Hypochromasia (manual) Cancelled Poikilocytosis (manual Cancelled Basophilic Stippling Cancelled Anisocytosis (manual) Cancelled Microcytosis (manual) Cancelled Macrocytosis (manual) Cancelled Spherocytes Cancelled Sickle Cells Cancelled Target Cells Cancelled Tear Drop Cells Cancelled Ovalocytes Cancelled Stomatocytes Cancelled Helmet Cells Cancelled [place] Bodies Cancelled [place] Cells Cancelled Acanthocytes (Spur) Cancelled Rouleaux Cancelled Schistocytes Cancelled PT 16.1 H INR 1.5 APTT 33 pO2 VBG pH VBG pCO2 VBG HCO3 VBG Total CO2 VBG Base Excess VBG Potassium Glucose Lactate Crit Value Called To Crit Value Called By Crit Value Read Back Blood Gas Notified Time Sodium 133 Potassium 4.0 Chloride 92 L Carbon Dioxide 28 Anion Gap 18 BUN 11 Creatinine 0.7 Est GFR ( Amer) > 60 Est GFR (Non-Af Amer) > 60 POC Glucose (mg/dL) Random Glucose 445 H* Lactic Acid Calcium 8.8 Total Bilirubin 1.6 H AST 12 L ALT 13 Alkaline Phosphatase 102 Total Creatine Kinase CK-MB (Mass) Troponin I 0.2030 H* NT-Pro-B Natriuret Pep 8060 H Total Protein 6.1 L Albumin 3.5 Globulin 2.6 Albumin/Globulin Ratio 1.3 TSH 3rd Generation 1.02 Venous Blood Potassium Urine Color Urine Clarity Urine pH Ur Specific [place] Urine Protein Urine Glucose (UA) Urine Ketones Urine Blood Urine Nitrate Urine Bilirubin Urine Urobilinogen Ur Leukocyte Esterase Urine WBC (Auto) Urine RBC (Auto) Ur Squamous Epith Cells Urine Bacteria 08/05/18 08/05/18 08/05/18 11:30 13:21 13:21 WBC RBC Hgb Hct MCV MCH MCHC RDW Plt Count MPV Neut % (Auto) Lymph % (Auto) [place] % (Auto) Eos % (Auto) Baso % (Auto) Neut # (Auto) Lymph # (Auto) [place] # (Auto) Eos # (Auto) Baso # (Auto) Total Counted Neutrophils % (Manual) Band Neutrophils % Lymphocytes % (Manual) Reactive Lymphs % Monocytes % (Manual) Eosinophils % (Manual) Basophils % (Manual) Metamyelocytes % Myelocytes % Promyelocytes % Blast Cells % Plasma Cell % (Manual) Nucleated RBC % Hypersegmented Polys Smudge Cells Toxic Granulation Dohle Bodies Joce Rods Platelet Estimate Plt Clumps, EDTA Large Platelets Giant Platelets RBC Morphology Polychromasia Hypochromasia (manual) Poikilocytosis (manual Basophilic Stippling Anisocytosis (manual) Microcytosis (manual) Macrocytosis (manual) Spherocytes Sickle Cells Target Cells Tear Drop Cells Ovalocytes Stomatocytes Helmet Cells [place] Bodies [place] Cells Acanthocytes (Spur) Rouleaux Schistocytes PT INR APTT pO2 18 L VBG pH 7.52 H VBG pCO2 36 L VBG HCO3 28.2 VBG Total CO2 30.5 H VBG Base Excess 6.4 H VBG Potassium 3.8 Glucose 459 H* Lactate 2.2 H Crit Value Called To Horacio Crit Value Called By Lary galloway Crit Value Read Back Y Blood Gas Notified Time 1138 Sodium 136.0 Potassium Chloride 100.0 Carbon Dioxide Anion Gap BUN Creatinine Est GFR ( Amer) Est GFR (Non-Af Amer) POC Glucose (mg/dL) Random Glucose Lactic Acid 1.7 Calcium Total Bilirubin AST ALT Alkaline Phosphatase Total Creatine Kinase CK-MB (Mass) Troponin I NT-Pro-B Natriuret Pep Total Protein Albumin Globulin Albumin/Globulin Ratio TSH 3rd Generation Venous Blood Potassium 3.8 Urine Color Yellow Urine Clarity Hazy Urine pH 5.0 Ur Specific [place] 1.022 Urine Protein 2+ H Urine Glucose (UA) 3+ H Urine Ketones 1+ H Urine Blood 1+ H Urine Nitrate Positive H Urine Bilirubin Negative Urine Urobilinogen 4.0 H Ur Leukocyte Esterase Neg Urine WBC (Auto) 18 H Urine RBC (Auto) 6 H Ur Squamous Epith Cells 17 H Urine Bacteria Few H 08/05/18 08/05/18 16:17 17:13 WBC RBC Hgb Hct MCV MCH MCHC RDW Plt Count MPV Neut % (Auto) Lymph % (Auto) [place] % (Auto) Eos % (Auto) Baso % (Auto) Neut # (Auto) Lymph # (Auto) [place] # (Auto) Eos # (Auto) Baso # (Auto) Total Counted Neutrophils % (Manual) Band Neutrophils % Lymphocytes % (Manual) Reactive Lymphs % Monocytes % (Manual) Eosinophils % (Manual) Basophils % (Manual) Metamyelocytes % Myelocytes % Promyelocytes % Blast Cells % Plasma Cell % (Manual) Nucleated RBC % Hypersegmented Polys Smudge Cells Toxic Granulation Dohle Bodies Joce Rods Platelet Estimate Plt Clumps, EDTA Large Platelets Giant Platelets RBC Morphology Polychromasia Hypochromasia (manual) Poikilocytosis (manual Basophilic Stippling Anisocytosis (manual) Microcytosis (manual) Macrocytosis (manual) Spherocytes Sickle Cells Target Cells Tear Drop Cells Ovalocytes Stomatocytes Helmet Cells [place] Bodies [place] Cells Acanthocytes (Spur) Rouleaux Schistocytes PT INR APTT pO2 VBG pH VBG pCO2 VBG HCO3 VBG Total CO2 VBG Base Excess VBG Potassium Glucose Lactate Crit Value Called To Crit Value Called By Crit Value Read Back Blood Gas Notified Time Sodium Potassium Chloride Carbon Dioxide Anion Gap BUN Creatinine Est GFR ( Amer) Est GFR (Non-Af Amer) POC Glucose (mg/dL) 415 H* Random Glucose Lactic Acid Calcium Total Bilirubin AST ALT Alkaline Phosphatase Total Creatine Kinase 20 L CK-MB (Mass) 0.69 Troponin I 0.1980 H* NT-Pro-B Natriuret Pep Total Protein Albumin Globulin Albumin/Globulin Ratio TSH 3rd Generation Venous Blood Potassium Urine Color Urine Clarity Urine pH Ur Specific [place] Urine Protein Urine Glucose (UA) Urine Ketones Urine Blood Urine Nitrate Urine Bilirubin Urine Urobilinogen Ur Leukocyte Esterase Urine WBC (Auto) Urine RBC (Auto) Ur Squamous Epith Cells Urine Bacteria Attending/Attestation - Attestation I have personally seen and examined this patient.: Yes I have fully participated in the care of the patient.: Yes I have reviewed all pertinent clinical information: Yes Notes (Text): 08/05/18 18:32 Patient seen and examined 62-year-old female with atrial fibrillation and lymphoma on chemotherapy presented to emergency room with palpitation and found to be in A. fib with rapid ventricular response, fever and sepsis. IV antibiotics urine for culture and sensitivity Cardizem drip continue anticoagulation ICU monitoring blood culture and sensitivity reverse isolation
[2018-08-05] MEDS ORDERED: Dextrose 50% SYRINGE Inj (50 ml) IV PRN (14:14)
[2018-08-05] MEDS ORDERED: Glucagon Recombinant 1 mg Inj IM PRN (14:14)
--- NOTE | 2018-08-05 15:19 | RAD ---
Date of service: 08/05/2018 PROCEDURE: CHEST RADIOGRAPH, 1 VIEW HISTORY: SOB COMPARISON: None available. FINDINGS: LUNGS: Clear. PLEURA: No pneumothorax or pleural fluid seen. CARDIOVASCULAR: No aortic atherosclerotic calcification present. Normal heart size. Sternotomy wires. OSSEOUS STRUCTURES: No significant abnormalities. VISUALIZED UPPER ABDOMEN: Normal. OTHER FINDINGS: None. IMPRESSION: No active disease.
[2018-08-05] MEDS: (Novolin R) Insulin Human Regular 100 units/ml vial SC SCH ×2 (16:26→21:52)
[2018-08-05 18:09] LABS: CK-MB 0.69 ng/mL (0.0-3.38); TROPONIN I 0.198 ng/mL (0.00-0.120)
--- NOTE | 2018-08-05 19:14 | CP.PCM.CON ---
History of Present Illness - History of Present Illness History of Present Illness: 62 year old female with PMHx of lymphoma on chemotherapy came to with palpitations She is visiting from [place] for the holidays Found to be febrile and neutropenic in the ER and ID consuled for this PMHx: Lymphoma on chemotherapy, CAD s/p CABG, 2X CVA, atrial fibrillation, HTN, and DM-2 PSHx: Cholecystectomy, CABG Family Hx: Mother had heart disease, father dies of a stroke at age 47, aunt had cervical cancer. Allergies: NKDA Social Hx: denies alcohol, tobacco, drug use. Worked as a social media developer. Review of Systems - Review of Systems All systems: reviewed and no additional remarkable complaints except - Constitutional Constitutional: As Per HPI, Chills, Fever, Malaise - EENT Eyes: absent: As Per HPI, Blind Spots, Blurred Vision, Change in Vision, Decreased Night Vision, Diplopia, Discharge, Dry Eye, Exophthalmos, Floaters, Irritation, Itchy Eyes, Loss of Peripheral Vision, Pain, Photophobia, Requires Corrective Lenses, Sees Flashes, Spots in Vision, Tunnel Vision, Other Visual Disturbances, Loss of Vision, Other Ears: absent: As Per HPI, Decreased Hearing, Ear Discharge, Ear Pain, Tinnitus, Abnormal Hearing, Disequilibrium, Dizziness, Other Nose/Mouth/Throat: absent: As Per HPI, Epistaxis, Nasal Congestion, Nasal Discharge, Nasal Obstruction, Nasal Trauma, Nose Pain, Post Nasal Drip, Sinus Pain, Sinus Pressure, Bleeding Gums, Change in Voice, Dental Pain, Dry Mouth, Dysphagia, Halitosis, Hoarsness, Lip Swelling, Mouth Lesions, Mouth Pain, Odynophagia, Sore Throat, Throat Swelling, Tongue Swelling, Facial Pain, Neck Pain, Neck Mass, Other - Breasts Breasts: absent: As Per HPI, Change in Shape, Mass, Pain, Nipple Discharge, Nipple Inversion, Skin Changes, Swelling, Other - Cardiovascular Cardiovascular: As Per HPI - Respiratory Respiratory: absent: As Per HPI, Cough, Dyspnea, Hemoptysis, Dyspnea on Exertion, Wheezing, Snoring, Stridor, Pain on Inspiration, Chest Congestion, Excessive Mucous Production, Change in Mucous Color, Pain with Coughing, Other - Gastrointestinal Gastrointestinal: absent: As Per HPI, Abdominal Pain, Belching, Bloating, Change in Bowel Habits, Change in Stool Character, Coffee Ground Emesis, Constipation, Cramping, Diarrhea, Dyspepsia, Dysphagia, Early Satiety, Excessive Flatus, Fecal Incontinence, Heartburn, Hematemesis, Hematochezia, Loose Stools, Melena, Nausea, Odynophagia, Temesmus, Vomiting, Other - Genitourinary Genitourinary: absent: As Per HPI, Change in Urinary Stream, Difficulty Urinating, Dysuria, Flank Pain, Hematuria, Pyuria, Nocturia, Urinary Incontine nce, Urinary Frequency, Urinary Hesitance, Urinary Urgency, Voiding Freq/Small Amts, Freq UTI, Hx Renal/Bladder Calculi, Hx /Renal Surgery, Bladder Distension, Other - Reproductive: Female Reproductive:Female: absent: As Per HPI, Amenorrhea, Amenorrhea/ Control, Currently Menstual, Cycle <21 Days, Cycle >35 Days, Cycle Variable, Menses 1-7 Days, Menses >/= 8 Days, Menses Variable, Cycle > 4 Weeks Between, No Menses for 6 Months, Heavy Menses, Light Menses, Normal Menses, Spotting Between Cycles, S/P Hysterectomy, Menopausal, Post Menopausal, Premenarche, Abnormal Vaginal Bleeding, Dysmenorrhea, Dyspareunia, Genital Lesions, Genital Pruritis, Pelvic Pain, Prolapse Symptoms, Sexual Dysfunction, Vaginal Discharge, Vaginal Dryness, Vaginal Odor, Vaginal Pruritis, Other - Menstruation Menstruation: absent: As Per HPI, Amenorrhea, Amenorrhea/ Control, Currently Menstual, Cycle <21 Days, Cycle >35 Days, Cycle Variable, Menses 1-7 Days, Menses >/= 8 Days, Menses Variable, Cycle > 4 Weeks Between, No Menses for 6 Months, Heavy Menses, Light Menses, Normal Menses, Spotting Between Cycles, S/P Hysterectomy, Menopausal, Post Menopausal, Premenarche, Abnormal Vaginal Bleeding, Dysmenorrhea, Other - Musculoskeletal Musculoskeletal: absent: As Per HPI, Abnormal Gait, Arthralgias, Atrophy, Back Pain, Deformity, Joint Swelling, Limited Range of Motion, Loss of Height, Muscle Cramps, Muscle Weakness, Myalgias, Neck Pain, Numbness, Radiating Pain into Limb, Stiffness, Tingling, Other - Integumentary Integumentary: absent: As Per HPI, Acne, Alopecia, Bleeding Lesions, Change in Hair, Change in Nails, Change in Pigmentation, Changing Lesions, Dry Skin, Erythema, Furuncle, Hirsutism, Lesions, New Lesions, Non-Healing Lesions, Photosensitivity, Pruritus, Rash, Skin Pain, Skin Ulcer, Sores, Striae, Swelling, Unusual Bruising, Wounds, Jaundice, Other - Neurological Neurological: absent: As Per HPI, Abnormal Gait, Abnormal Hearing, Abnormal Movements, Abnormal Speech, Behavioral Changes, Burning Sensations, Confusion, Convulsions, Disequilibrium, Dizziness, Numbness, Focal Weakness, Frequent Falls, Headaches, Lack of Coordination, Loss of Vision, Memory Loss, Paresthesias, Radicular Pain, Restless Legs, Sensory Deficit, Syncope, Tingling, Tremor, Vertigo, Weakness, Other Visual Disturbances, Other - Psychiatric Psychiatric: absent: As Per HPI, Abnormal Sleep Pattern, Anhedonia, Anxiety, Auditory Hallucinations, Behavioral Changes, Change in Appetite, Change in Libido, Confusion, Depression, Difficulty Concentrating, Hallucinations, Ho micidal Ideation, Hopelessness, Irritability, Memory Loss, Mood Swings, Panic Attacks, Paranoia, Suicidal Ideation, Visual Hallucinations, Tactile Hallucinations, Other - Endocrine Endocrine: absent: As Per HPI, Change in Body Appearance, Change in Libido, Cold Intolorance, Deepening of Voice, Excessive Sweating, Fatigue, Flushing, Heat Intolorance, Increase in Ring/Shoe/Hat Size, Palpitations, Polydipsia, Polyphagia, Polyuria, Other - Hematologic/Lymphatic Hematologic: absent: As Per HPI, Easy Bleeding, Easy Bruising, Lymphadenopathy, Other Past Patient History - Past Social History Smoking Status: Never Smoked - CARDIAC Hx Atrial Fibrillation: Yes Other/Comment: quadruple bypass - ENDOCRINE/METABOLIC Hx Diabetes Mellitus Type 2: Yes - HEMATOLOGICAL/ONCOLOGICAL Hx Chemotherapy: Yes - MUSCULOSKELETAL/RHEUMATOLOGICAL Hx Falls: No - PSYCHIATRIC Hx Substance Use: No - SURGICAL HISTORY Hx Coronary Artery Bypass Graft: Yes - ANESTHESIA Hx Anesthesia: Yes Hx Anesthesia Reactions: No Hx Malignant Hyperthermia: No Has any member of the family had a problem w/ anesthesia?: No Meds Allergies/Adverse Reactions: Allergies Allergy/AdvReac Type Severity Reaction Status Date / Time No Known Allergies Allergy Verified 08/05/18 10:58 - Medications Medications: Current Medications Acetaminophen (Tylenol 325mg Tab) 650 mg PO Q6 PRN PRN Reason: Fever >100.4 F Dextrose (Glutose 15) 0 gm PO ONCE PRN; Protocol PRN Reason: Hypoglycemia Protocol Dextrose (Dextrose 50% Inj) 0 ml IV STAT PRN; Protocol PRN Reason: Hypoglycemia Protocol Glucagon (Glucagen Diagnostic Kit) 0 mg IM STAT PRN; Protocol PRN Reason: Hypoglycemia Protocol Diltiazem HCl 125 mg/ Sodium (Chloride) 125 mls @ 5 mls/hr IV .Q24H STA; Protocol Stop: 08/06/18 11:14 Last Titration: 08/05/18 14:30 Dose: 10 mg/hr, 10 mls/hr Vancomycin HCl (Vancomycin 1gm In Normal Saline Addvantage) 1 gm in 250 mls @ 166.667 mls/hr IV STAT TAYLER; Protocol Dextrose (Dextrose 5% In Water 1000 Ml) 1,000 mls @ 0 mls/hr IV .Q0M PRN; Protocol PRN Reason: Hypoglycemia Protocol Influenza Virus Vaccine (Fluzone Quad [id number]) 60 mcg IM .ONCE ONE Stop: 08/07/18 10:01 Insulin Human Regular (Novolin R) 0 unit SC ACHS TYALER; Protocol Last Admin: 08/05/18 16:26 Dose: 10 units Rivaroxaban (Xarelto) 15 mg PO DAILY [facility] Last Admin: 08/05/18 17:11 Dose: 15 mg Physical Exam - Constitutional Appears: Non-toxic, Chronically Ill - Head Exam Head Exam: ATRAUMATIC, NORMAL INSPECTION, NORMOCEPHALIC - Eye Exam Eye Exam: PERRL. absent: Scleral icterus - ENT Exam ENT Exam: Mucous Membranes Dry, Normal External Ear Exam, Normal Oropharynx - Neck Exam Neck exam: Negative for: Lymphadenopathy - Respiratory Exam Respiratory Exam: Decreased Breath Sounds, Clear to Auscultation Bilateral - Cardiovascular Exam Cardiovascular Exam: Irregular Rhythm, +S1, +S2 - GI/Abdominal Exam GI & Abdominal Exam: Diminished Bowel Sounds, Distended, Soft. absent: Pulsatile Mass, Rebound, Rigid, Tenderness - Rectal Exam Rectal Exam: Deferred - Exam Exam: NORMAL INSPECTION - Extremities Exam Extremities exam: Positive for: pedal pulses present. Negative for: calf tenderness, pedal edema, tenderness - Back Exam Back exam: absent: CVA tenderness (L), CVA tenderness (R) - Neurological Exam Neurological exam: Alert, Motor Sensory Deficit, Oriented x3, Reflexes Normal Additional comments: weakness right > left mild facial assymetry - Psychiatric Exam Psychiatric exam: Normal Mood - Skin Skin Exam: Dry Results - Vital Signs Recent Vital Signs: Last Vital Signs Temp 99.2 F 08/05/18 16:00 Pulse 118 H 08/05/18 18:30 Resp 19 08/05/18 18:30 BP 143/59 L 08/05/18 18:20 Pulse Ox 100 08/05/18 18:30 - Labs Result Diagrams: 08/05/18 11:12 08/05/18 11:12 Labs: Laboratory Results - last 24 hr 08/05/18 08/05/18 08/05/18 11:12 11:12 11:12 WBC 0.4 L* RBC 3.90 Hgb 10.1 L Hct 30.7 L MCV 78.7 L MCH 25.9 L MCHC 32.9 L RDW 18.8 H Plt Count 105 L MPV 8.0 Neut % (Auto) 10.8 L Lymph % (Auto) 20.5 Gaines % (Auto) 61.4 H Eos % (Auto) 4.1 H Baso % (Auto) 3.2 H Neut # (Auto) 0.0 L Lymph # (Auto) 0.1 L Gaines # (Auto) 0.2 Eos # (Auto) 0.0 Baso # (Auto) 0.0 Total Counted Cancelled Neutrophils % (Manual) Cancelled Band Neutrophils % Cancelled Lymphocytes % (Manual) Cancelled Reactive Lymphs % Cancelled Monocytes % (Manual) Cancelled Eosinophils % (Manual) Cancelled Basophils % (Manual) Cancelled Metamyelocytes % Cancelled Myelocytes % Cancelled Promyelocytes % Cancelled Blast Cells % Cancelled Plasma Cell % (Manual) Cancelled Nucleated RBC % Cancelled Hypersegmented Polys Cancelled Smudge Cells Cancelled Toxic Granulation Cancelled Dohle Bodies Cancelled Joce Rods Cancelled Platelet Estimate Cancelled Plt Clumps, EDTA Cancelled Large Platelets Cancelled Giant Platelets Cancelled RBC Morphology Cancelled Polychromasia Cancelled Hypochromasia (manual) Cancelled Poikilocytosis (manual Cancelled Basophilic Stippling Cancelled Anisocytosis (manual) Cancelled Microcytosis (manual) Cancelled Macrocytosis (manual) Cancelled Spherocytes Cancelled Sickle Cells Cancelled Target Cells Cancelled Tear Drop Cells Cancelled Ovalocytes Cancelled Stomatocytes Cancelled Helmet Cells Cancelled Ryder-Arena Bodies Cancelled Edgardo Cells Cancelled Acanthocytes (Spur) Cancelled Rouleaux Cancelled Schistocytes Cancelled Smear Path Review PT 16.1 H INR 1.5 APTT 33 pO2 VBG pH VBG pCO2 VBG HCO3 VBG Total CO2 VBG Base Excess VBG Potassium Glucose Lactate Crit Value Called To Crit Value Called By Crit Value Read Back Blood Gas Notified Time Sodium 133 Potassium 4.0 Chloride 92 L Carbon Dioxide 28 Anion Gap 18 BUN 11 Creatinine 0.7 Est GFR ( Amer) > 60 Est GFR (Non-Af Amer) > 60 POC Glucose (mg/dL) Random Glucose 445 H* Lactic Acid Calcium 8.8 Total Bilirubin 1.6 H AST 12 L ALT 13 Alkaline Phosphatase 102 Total Creatine Kinase CK-MB (Mass) Troponin I 0.2030 H* NT-Pro-B Natriuret Pep 8060 H Total Protein 6.1 L Albumin 3.5 Globulin 2.6 Albumin/Globulin Ratio 1.3 TSH 3rd Generation 1.02 Venous Blood Potassium Urine Color Urine Clarity Urine pH Ur Specific [place] Urine Protein Urine Glucose (UA) Urine Ketones Urine Blood Urine Nitrate Urine Bilirubin Urine Urobilinogen Ur Leukocyte Esterase Urine WBC (Auto) Urine RBC (Auto) Ur Squamous Epith Cells Urine Bacteria 08/05/18 08/05/18 08/05/18 11:30 13:21 13:21 WBC RBC Hgb Hct MCV MCH MCHC RDW Plt Count MPV Neut % (Auto) Lymph % (Auto) Gaines % (Auto) Eos % (Auto) Baso % (Auto) Neut # (Auto) Lymph # (Auto) Gaines # (Auto) Eos # (Auto) Baso # (Auto) Total Counted Neutrophils % (Manual) Band Neutrophils % Lymphocytes % (Manual) Reactive Lymphs % Monocytes % (Manual) Eosinophils % (Manual) Basophils % (Manual) Metamyelocytes % Myelocytes % Promyelocytes % Blast Cells % Plasma Cell % (Manual) Nucleated RBC % Hypersegmented Polys Smudge Cells Toxic Granulation Dohle Bodies Joce Rods Platelet Estimate Plt Clumps, EDTA Large Platelets Giant Platelets RBC Morphology Polychromasia Hypochromasia (manual) Poikilocytosis (manual Basophilic Stippling Anisocytosis (manual) Microcytosis (manual) Macrocytosis (manual) Spherocytes Sickle Cells Target Cells Tear Drop Cells Ovalocytes Stomatocytes Helmet Cells Ryder-Arena Bodies Edgardo Cells Acanthocytes (Spur) Rouleaux Schistocytes Smear Path Review PT INR APTT pO2 18 L VBG pH 7.52 H VBG pCO2 36 L VBG HCO3 28.2 VBG Total CO2 30.5 H VBG Base Excess 6.4 H VBG Potassium 3.8 Glucose 459 H* Lactate 2.2 H Crit Value Called To Horacio Crit Value Called By Lary galloway Crit Value Read Back Y Blood Gas Notified Time 1138 Sodium 136.0 Potassium Chloride 100.0 Carbon Dioxide Anion Gap BUN Creatinine Est GFR ( Amer) Est GFR (Non-Af Amer) POC Glucose (mg/dL) Random Glucose Lactic Acid 1.7 Calcium Total Bilirubin AST ALT Alkaline Phosphatase Total Creatine Kinase CK-MB (Mass) Troponin I NT-Pro-B Natriuret Pep Total Protein Albumin Globulin Albumin/Globulin Ratio TSH 3rd Generation Venous Blood Potassium 3.8 Urine Color Yellow Urine Clarity Hazy Urine pH 5.0 Ur Specific [place] 1.022 Urine Protein 2+ H Urine Glucose (UA) 3+ H Urine Ketones 1+ H Urine Blood 1+ H Urine Nitrate Positive H Urine Bilirubin Negative Urine Urobilinogen 4.0 H Ur Leukocyte Esterase Neg Urine WBC (Auto) 18 H Urine RBC (Auto) 6 H Ur Squamous Epith Cells 17 H Urine Bacteria Few H 08/05/18 08/05/18 16:17 17:13 WBC RBC Hgb Hct MCV MCH MCHC RDW Plt Count MPV Neut % (Auto) Lymph % (Auto) Gaines % (Auto) Eos % (Auto) Baso % (Auto) Neut # (Auto) Lymph # (Auto) Gaines # (Auto) Eos # (Auto) Baso # (Auto) Total Counted Neutrophils % (Manual) Band Neutrophils % Lymphocytes % (Manual) Reactive Lymphs % Monocytes % (Manual) Eosinophils % (Manual) Basophils % (Manual) Metamyelocytes % Myelocytes % Promyelocytes % Blast Cells % Plasma Cell % (Manual) Nucleated RBC % Hypersegmented Polys Smudge Cells Toxic Granulation Dohle Bodies Joce Rods Platelet Estimate Plt Clumps, EDTA Large Platelets Giant Platelets RBC Morphology Polychromasia Hypochromasia (manual) Poikilocytosis (manual Basophilic Stippling Anisocytosis (manual) Microcytosis (manual) Macrocytosis (manual) Spherocytes Sickle Cells Target Cells Tear Drop Cells Ovalocytes Stomatocytes Helmet Cells Ryder-Arena Bodies [place] Cells Acanthocytes (Spur) Rouleaux Schistocytes Smear Path Review PT INR APTT pO2 VBG pH VBG pCO2 VBG HCO3 VBG Total CO2 VBG Base Excess VBG Potassium Glucose Lactate Crit Value Called To Crit Value Called By Crit Value Read Back Blood Gas Notified Time Sodium Potassium Chloride Carbon Dioxide Anion Gap BUN Creatinine Est GFR ( Amer) Est GFR (Non-Af Amer) POC Glucose (mg/dL) 415 H* Random Glucose Lactic Acid Calcium Total Bilirubin AST ALT Alkaline Phosphatase Total Creatine Kinase 20 L CK-MB (Mass) 0.69 Troponin I 0.1980 H* NT-Pro-B Natriuret Pep Total Protein Albumin Globulin Albumin/Globulin Ratio TSH 3rd Generation Venous Blood Potassium Urine Color Urine Clarity Urine pH Ur Specific [place] Urine Protein Urine Glucose (UA) Urine Ketones Urine Blood Urine Nitrate Urine Bilirubin Urine Urobilinogen Ur Leukocyte Esterase Urine WBC (Auto) Urine RBC (Auto) Ur Squamous Epith Cells Urine Bacteria Assessment & Plan (1) Fever and neutropenia Status: Acute (2) Lymphoma Status: Acute (3) History of CVA with residual deficit Status: Acute (4) Atrial fibrillation Status: Acute - Assessment and Plan (Free Text) Assessment: start broad spectrum coverage port in right chest appears ok will screen for flu consider biofire PCR resp pathogen array
--- NOTE | 2018-08-05 19:22 | CP.PCM.CON ---
History of Present Illness - History of Present Illness History of Present Illness: 62 year old female with PMHx of lymphoma on chemotherapy came to with palpitations She is visiting from [place] for the holidays Found to be febrile and neutropenic in the ER and ID consuled for this PMHx: Lymphoma on chemotherapy, CAD s/p CABG, 2X CVA, atrial fibrillation, HTN, and DM-2 PSHx: Cholecystectomy, CABG Family Hx: Mother had heart disease, father dies of a stroke at age 47, aunt had cervical cancer. Allergies: NKDA Social Hx: denies alcohol, tobacco, drug use. Worked as a social work therapist. Review of Systems - Review of Systems All systems: reviewed and no additional remarkable complaints except - Constitutional Constitutional: As Per HPI, Chills, Fever, Malaise - EENT Eyes: absent: As Per HPI, Blind Spots, Blurred Vision, Change in Vision, Decreased Night Vision, Diplopia, Discharge, Dry Eye, Exophthalmos, Floaters, Irritation, Itchy Eyes, Loss of Peripheral Vision, Pain, Photophobia, Requires Corrective Lenses, Sees Flashes, Spots in Vision, Tunnel Vision, Other Visual Disturbances, Loss of Vision, Other Ears: absent: As Per HPI, Decreased Hearing, Ear Discharge, Ear Pain, Tinnitus, Abnormal Hearing, Disequilibrium, Dizziness, Other Nose/Mouth/Throat: absent: As Per HPI, Epistaxis, Nasal Congestion, Nasal Discharge, Nasal Obstruction, Nasal Trauma, Nose Pain, Post Nasal Drip, Sinus Pain, Sinus Pressure, Bleeding Gums, Change in Voice, Dental Pain, Dry Mouth, Dysphagia, Halitosis, Hoarsness, Lip Swelling, Mouth Lesions, Mouth Pain, Odynophagia, Sore Throat, Throat Swelling, Tongue Swelling, Facial Pain, Neck Pain, Neck Mass, Other - Breasts Breasts: absent: As Per HPI, Change in Shape, Mass, Pain, Nipple Discharge, Nipple Inversion, Skin Changes, Swelling, Other - Cardiovascular Cardiovascular: As Per HPI - Respiratory Respiratory: absent: As Per HPI, Cough, Dyspnea, Hemoptysis, Dyspnea on Exertion, Wheezing, Snoring, Stridor, Pain on Inspiration, Chest Congestion, Excessive Mucous Production, Change in Mucous Color, Pain with Coughing, Other - Gastrointestinal Gastrointestinal: absent: As Per HPI, Abdominal Pain, Belching, Bloating, Change in Bowel Habits, Change in Stool Character, Coffee Ground Emesis, Constipation, Cramping, Diarrhea, Dyspepsia, Dysphagia, Early Satiety, Excessive Flatus, Fecal Incontinence, Heartburn, Hematemesis, Hematochezia, Loose Stools, Melena, Nausea, Odynophagia, Temesmus, Vomiting, Other - Genitourinary Genitourinary: absent: As Per HPI, Change in Urinary Stream, Difficulty Urinating, Dysuria, Flank Pain, Hematuria, Pyuria, Nocturia, Urinary Incontine nce, Urinary Frequency, Urinary Hesitance, Urinary Urgency, Voiding Freq/Small Amts, Freq UTI, Hx Renal/Bladder Calculi, Hx /Renal Surgery, Bladder Distension, Other - Reproductive: Female Reproductive:Female: absent: As Per HPI, Amenorrhea, Amenorrhea/ Control, Currently Menstual, Cycle <21 Days, Cycle >35 Days, Cycle Variable, Menses 1-7 Days, Menses >/= 8 Days, Menses Variable, Cycle > 4 Weeks Between, No Menses for 6 Months, Heavy Menses, Light Menses, Normal Menses, Spotting Between Cycles, S/P Hysterectomy, Menopausal, Post Menopausal, Premenarche, Abnormal Vaginal Bleeding, Dysmenorrhea, Dyspareunia, Genital Lesions, Genital Pruritis, Pelvic Pain, Prolapse Symptoms, Sexual Dysfunction, Vaginal Discharge, Vaginal Dryness, Vaginal Odor, Vaginal Pruritis, Other - Menstruation Menstruation: absent: As Per HPI, Amenorrhea, Amenorrhea/ Control, Currently Menstual, Cycle <21 Days, Cycle >35 Days, Cycle Variable, Menses 1-7 Days, Menses >/= 8 Days, Menses Variable, Cycle > 4 Weeks Between, No Menses for 6 Months, Heavy Menses, Light Menses, Normal Menses, Spotting Between Cycles, S/P Hysterectomy, Menopausal, Post Menopausal, Premenarche, Abnormal Vaginal Bleeding, Dysmenorrhea, Other - Musculoskeletal Musculoskeletal: absent: As Per HPI, Abnormal Gait, Arthralgias, Atrophy, Back Pain, Deformity, Joint Swelling, Limited Range of Motion, Loss of Height, Muscle Cramps, Muscle Weakness, Myalgias, Neck Pain, Numbness, Radiating Pain into Limb, Stiffness, Tingling, Other - Integumentary Integumentary: absent: As Per HPI, Acne, Alopecia, Bleeding Lesions, Change in Hair, Change in Nails, Change in Pigmentation, Changing Lesions, Dry Skin, Erythema, Furuncle, Hirsutism, Lesions, New Lesions, Non-Healing Lesions, Photosensitivity, Pruritus, Rash, Skin Pain, Skin Ulcer, Sores, Striae, Swelling, Unusual Bruising, Wounds, Jaundice, Other - Neurological Neurological: absent: As Per HPI, Abnormal Gait, Abnormal Hearing, Abnormal Movements, Abnormal Speech, Behavioral Changes, Burning Sensations, Confusion, Convulsions, Disequilibrium, Dizziness, Numbness, Focal Weakness, Frequent Falls, Headaches, Lack of Coordination, Loss of Vision, Memory Loss, Paresthesias, Radicular Pain, Restless Legs, Sensory Deficit, Syncope, Tingling, Tremor, Vertigo, Weakness, Other Visual Disturbances, Other - Psychiatric Psychiatric: absent: As Per HPI, Abnormal Sleep Pattern, Anhedonia, Anxiety, Auditory Hallucinations, Behavioral Changes, Change in Appetite, Change in Libido, Confusion, Depression, Difficulty Concentrating, Hallucinations, Ho micidal Ideation, Hopelessness, Irritability, Memory Loss, Mood Swings, Panic Attacks, Paranoia, Suicidal Ideation, Visual Hallucinations, Tactile Hallucinations, Other - Endocrine Endocrine: absent: As Per HPI, Change in Body Appearance, Change in Libido, Cold Intolorance, Deepening of Voice, Excessive Sweating, Fatigue, Flushing, Heat Intolorance, Increase in Ring/Shoe/Hat Size, Palpitations, Polydipsia, Polyphagia, Polyuria, Other - Hematologic/Lymphatic Hematologic: absent: As Per HPI, Easy Bleeding, Easy Bruising, Lymphadenopathy, Other Past Patient History - Past Social History Smoking Status: Never Smoked - CARDIAC Hx Atrial Fibrillation: Yes Other/Comment: quadruple bypass - ENDOCRINE/METABOLIC Hx Diabetes Mellitus Type 2: Yes - HEMATOLOGICAL/ONCOLOGICAL Hx Chemotherapy: Yes - MUSCULOSKELETAL/RHEUMATOLOGICAL Hx Falls: No - PSYCHIATRIC Hx Substance Use: No - SURGICAL HISTORY Hx Coronary Artery Bypass Graft: Yes - ANESTHESIA Hx Anesthesia: Yes Hx Anesthesia Reactions: No Hx Malignant Hyperthermia: No Has any member of the family had a problem w/ anesthesia?: No Meds Allergies/Adverse Reactions: Allergies Allergy/AdvReac Type Severity Reaction Status Date / Time No Known Allergies Allergy Verified 08/05/18 10:58 - Medications Medications: Current Medications Acetaminophen (Tylenol 325mg Tab) 650 mg PO Q6 PRN PRN Reason: Fever >100.4 F Dextrose (Glutose 15) 0 gm PO ONCE PRN; Protocol PRN Reason: Hypoglycemia Protocol Dextrose (Dextrose 50% Inj) 0 ml IV STAT PRN; Protocol PRN Reason: Hypoglycemia Protocol Glucagon (Glucagen Diagnostic Kit) 0 mg IM STAT PRN; Protocol PRN Reason: Hypoglycemia Protocol Diltiazem HCl 125 mg/ Sodium (Chloride) 125 mls @ 5 mls/hr IV .Q24H STA; Protocol Stop: 08/06/18 11:14 Last Titration: 08/05/18 14:30 Dose: 10 mg/hr, 10 mls/hr Vancomycin HCl (Vancomycin 1gm In Normal Saline Addvantage) 1 gm in 250 mls @ 166.667 mls/hr IV STAT TAYLER; Protocol Dextrose (Dextrose 5% In Water 1000 Ml) 1,000 mls @ 0 mls/hr IV .Q0M PRN; Protocol PRN Reason: Hypoglycemia Protocol Influenza Virus Vaccine (Fluzone Quad [id number]) 60 mcg IM .ONCE ONE Stop: 08/07/18 10:01 Insulin Human Regular (Novolin R) 0 unit SC ACHS TAYLER; Protocol Last Admin: 08/05/18 16:26 Dose: 10 units Rivaroxaban (Xarelto) 15 mg PO DAILY COUNTS INCLUDE 234 BEDS AT THE [facility] Last Admin: 08/05/18 17:11 Dose: 15 mg Physical Exam - Constitutional Appears: Non-toxic, Chronically Ill - Head Exam Head Exam: ATRAUMATIC, NORMAL INSPECTION, NORMOCEPHALIC - Eye Exam Eye Exam: PERRL. absent: Scleral icterus - ENT Exam ENT Exam: Mucous Membranes Dry, Normal External Ear Exam, Normal Oropharynx - Neck Exam Neck exam: Negative for: Lymphadenopathy - Respiratory Exam Respiratory Exam: Decreased Breath Sounds, Clear to Auscultation Bilateral - Cardiovascular Exam Cardiovascular Exam: Irregular Rhythm, +S1, +S2 - GI/Abdominal Exam GI & Abdominal Exam: Diminished Bowel Sounds, Distended, Soft. absent: Pulsatile Mass, Rebound, Rigid, Tenderness - Rectal Exam Rectal Exam: Deferred - Exam Exam: NORMAL INSPECTION - Extremities Exam Extremities exam: Positive for: pedal pulses present. Negative for: calf tenderness, pedal edema, tenderness - Back Exam Back exam: absent: CVA tenderness (L), CVA tenderness (R) - Neurological Exam Neurological exam: Alert, Motor Sensory Deficit, Oriented x3, Reflexes Normal Additional comments: weakness right > left mild facial assymetry - Psychiatric Exam Psychiatric exam: Normal Mood - Skin Skin Exam: Dry Results - Vital Signs Recent Vital Signs: Last Vital Signs Temp 99.2 F 08/05/18 16:00 Pulse 118 H 08/05/18 18:30 Resp 19 08/05/18 18:30 BP 143/59 L 08/05/18 18:20 Pulse Ox 100 08/05/18 18:30 - Labs Result Diagrams: 08/05/18 11:12 08/05/18 11:12 Labs: Laboratory Results - last 24 hr 08/05/18 08/05/18 08/05/18 11:12 11:12 11:12 WBC 0.4 L* RBC 3.90 Hgb 10.1 L Hct 30.7 L MCV 78.7 L MCH 25.9 L MCHC 32.9 L RDW 18.8 H Plt Count 105 L MPV 8.0 Neut % (Auto) 10.8 L Lymph % (Auto) 20.5 [place] % (Auto) 61.4 H Eos % (Auto) 4.1 H Baso % (Auto) 3.2 H Neut # (Auto) 0.0 L Lymph # (Auto) 0.1 L [place] # (Auto) 0.2 Eos # (Auto) 0.0 Baso # (Auto) 0.0 Total Counted Cancelled Neutrophils % (Manual) Cancelled Band Neutrophils % Cancelled Lymphocytes % (Manual) Cancelled Reactive Lymphs % Cancelled Monocytes % (Manual) Cancelled Eosinophils % (Manual) Cancelled Basophils % (Manual) Cancelled Metamyelocytes % Cancelled Myelocytes % Cancelled Promyelocytes % Cancelled Blast Cells % Cancelled Plasma Cell % (Manual) Cancelled Nucleated RBC % Cancelled Hypersegmented Polys Cancelled Smudge Cells Cancelled Toxic Granulation Cancelled Dohle Bodies Cancelled Joce Rods Cancelled Platelet Estimate Cancelled Plt Clumps, EDTA Cancelled Large Platelets Cancelled Giant Platelets Cancelled RBC Morphology Cancelled Polychromasia Cancelled Hypochromasia (manual) Cancelled Poikilocytosis (manual Cancelled Basophilic Stippling Cancelled Anisocytosis (manual) Cancelled Microcytosis (manual) Cancelled Macrocytosis (manual) Cancelled Spherocytes Cancelled Sickle Cells Cancelled Target Cells Cancelled Tear Drop Cells Cancelled Ovalocytes Cancelled Stomatocytes Cancelled Helmet Cells Cancelled [place] Bodies Cancelled Edgardo Cells Cancelled Acanthocytes (Spur) Cancelled Rouleaux Cancelled Schistocytes Cancelled Smear Path Review PT 16.1 H INR 1.5 APTT 33 pO2 VBG pH VBG pCO2 VBG HCO3 VBG Total CO2 VBG Base Excess VBG Potassium Glucose Lactate Crit Value Called To Crit Value Called By Crit Value Read Back Blood Gas Notified Time Sodium 133 Potassium 4.0 Chloride 92 L Carbon Dioxide 28 Anion Gap 18 BUN 11 Creatinine 0.7 Est GFR ( Amer) > 60 Est GFR (Non-Af Amer) > 60 POC Glucose (mg/dL) Random Glucose 445 H* Lactic Acid Calcium 8.8 Total Bilirubin 1.6 H AST 12 L ALT 13 Alkaline Phosphatase 102 Total Creatine Kinase CK-MB (Mass) Troponin I 0.2030 H* NT-Pro-B Natriuret Pep 8060 H Total Protein 6.1 L Albumin 3.5 Globulin 2.6 Albumin/Globulin Ratio 1.3 TSH 3rd Generation 1.02 Venous Blood Potassium Urine Color Urine Clarity Urine pH Ur Specific [place] Urine Protein Urine Glucose (UA) Urine Ketones Urine Blood Urine Nitrate Urine Bilirubin Urine Urobilinogen Ur Leukocyte Esterase Urine WBC (Auto) Urine RBC (Auto) Ur Squamous Epith Cells Urine Bacteria 08/05/18 08/05/18 08/05/18 11:30 13:21 13:21 WBC RBC Hgb Hct MCV MCH MCHC RDW Plt Count MPV Neut % (Auto) Lymph % (Auto) [place] % (Auto) Eos % (Auto) Baso % (Auto) Neut # (Auto) Lymph # (Auto) [place] # (Auto) Eos # (Auto) Baso # (Auto) Total Counted Neutrophils % (Manual) Band Neutrophils % Lymphocytes % (Manual) Reactive Lymphs % Monocytes % (Manual) Eosinophils % (Manual) Basophils % (Manual) Metamyelocytes % Myelocytes % Promyelocytes % Blast Cells % Plasma Cell % (Manual) Nucleated RBC % Hypersegmented Polys Smudge Cells Toxic Granulation Dohle Bodies Joce Rods Platelet Estimate Plt Clumps, EDTA Large Platelets Giant Platelets RBC Morphology Polychromasia Hypochromasia (manual) Poikilocytosis (manual Basophilic Stippling Anisocytosis (manual) Microcytosis (manual) Macrocytosis (manual) Spherocytes Sickle Cells Target Cells Tear Drop Cells Ovalocytes Stomatocytes Helmet Cells [place] Bodies Edgardo Cells Acanthocytes (Spur) Rouleaux Schistocytes Smear Path Review PT INR APTT pO2 18 L VBG pH 7.52 H VBG pCO2 36 L VBG HCO3 28.2 VBG Total CO2 30.5 H VBG Base Excess 6.4 H VBG Potassium 3.8 Glucose 459 H* Lactate 2.2 H Crit Value Called To Horacio Crit Value Called By Lary galloway Crit Value Read Back Y Blood Gas Notified Time 1138 Sodium 136.0 Potassium Chloride 100.0 Carbon Dioxide Anion Gap BUN Creatinine Est GFR ( Amer) Est GFR (Non-Af Amer) POC Glucose (mg/dL) Random Glucose Lactic Acid 1.7 Calcium Total Bilirubin AST ALT Alkaline Phosphatase Total Creatine Kinase CK-MB (Mass) Troponin I NT-Pro-B Natriuret Pep Total Protein Albumin Globulin Albumin/Globulin Ratio TSH 3rd Generation Venous Blood Potassium 3.8 Urine Color Yellow Urine Clarity Hazy Urine pH 5.0 Ur Specific [place] 1.022 Urine Protein 2+ H Urine Glucose (UA) 3+ H Urine Ketones 1+ H Urine Blood 1+ H Urine Nitrate Positive H Urine Bilirubin Negative Urine Urobilinogen 4.0 H Ur Leukocyte Esterase Neg Urine WBC (Auto) 18 H Urine RBC (Auto) 6 H Ur Squamous Epith Cells 17 H Urine Bacteria Few H 08/05/18 08/05/18 16:17 17:13 WBC RBC Hgb Hct MCV MCH MCHC RDW Plt Count MPV Neut % (Auto) Lymph % (Auto) [place] % (Auto) Eos % (Auto) Baso % (Auto) Neut # (Auto) Lymph # (Auto) [place] # (Auto) Eos # (Auto) Baso # (Auto) Total Counted Neutrophils % (Manual) Band Neutrophils % Lymphocytes % (Manual) Reactive Lymphs % Monocytes % (Manual) Eosinophils % (Manual) Basophils % (Manual) Metamyelocytes % Myelocytes % Promyelocytes % Blast Cells % Plasma Cell % (Manual) Nucleated RBC % Hypersegmented Polys Smudge Cells Toxic Granulation Dohle Bodies Joce Rods Platelet Estimate Plt Clumps, EDTA Large Platelets Giant Platelets RBC Morphology Polychromasia Hypochromasia (manual) Poikilocytosis (manual Basophilic Stippling Anisocytosis (manual) Microcytosis (manual) Macrocytosis (manual) Spherocytes Sickle Cells Target Cells Tear Drop Cells Ovalocytes Stomatocytes Helmet Cells [place] Bodies [place] Cells Acanthocytes (Spur) Rouleaux Schistocytes Smear Path Review PT INR APTT pO2 VBG pH VBG pCO2 VBG HCO3 VBG Total CO2 VBG Base Excess VBG Potassium Glucose Lactate Crit Value Called To Crit Value Called By Crit Value Read Back Blood Gas Notified Time Sodium Potassium Chloride Carbon Dioxide Anion Gap BUN Creatinine Est GFR ( Amer) Est GFR (Non-Af Amer) POC Glucose (mg/dL) 415 H* Random Glucose Lactic Acid Calcium Total Bilirubin AST ALT Alkaline Phosphatase Total Creatine Kinase 20 L CK-MB (Mass) 0.69 Troponin I 0.1980 H* NT-Pro-B Natriuret Pep Total Protein Albumin Globulin Albumin/Globulin Ratio TSH 3rd Generation Venous Blood Potassium Urine Color Urine Clarity Urine pH Ur Specific [place] Urine Protein Urine Glucose (UA) Urine Ketones Urine Blood Urine Nitrate Urine Bilirubin Urine Urobilinogen Ur Leukocyte Esterase Urine WBC (Auto) Urine RBC (Auto) Ur Squamous Epith Cells Urine Bacteria Assessment & Plan (1) Fever and neutropenia Status: Acute (2) Lymphoma Status: Acute (3) History of CVA with residual deficit Status: Acute (4) Atrial fibrillation Status: Acute - Assessment and Plan (Free Text) Assessment: start broad spectrum coverage port in right chest appears ok will screen for flu consider biofire PCR resp pathogen array Past Patient History - Past Social History Smoking Status: Never Smoked - CARDIAC Hx Atrial Fibrillation: Yes Other/Comment: quadruple bypass - ENDOCRINE/METABOLIC Hx Diabetes Mellitus Type 2: Yes - HEMATOLOGICAL/ONCOLOGICAL Hx Chemotherapy: Yes - MUSCULOSKELETAL/RHEUMATOLOGICAL Hx Falls: No - PSYCHIATRIC Hx Substance Use: No - SURGICAL HISTORY Hx Coronary Artery Bypass Graft: Yes - ANESTHESIA Hx Anesthesia: Yes Hx Anesthesia Reactions: No Hx Malignant Hyperthermia: No Has any member of the family had a problem w/ anesthesia?: No Meds Allergies/Adverse Reactions: Allergies Allergy/AdvReac Type Severity Reaction Status Date / Time No Known Allergies Allergy Verified 08/05/18 10:58 - Medications Medications: Current Medications Acetaminophen (Tylenol 325mg Tab) 650 mg PO Q6 PRN PRN Reason: Fever >100.4 F Dextrose (Glutose 15) 0 gm PO ONCE PRN; Protocol PRN Reason: Hypoglycemia Protocol Dextrose (Dextrose 50% Inj) 0 ml IV STAT PRN; Protocol PRN Reason: Hypoglycemia Protocol Glucagon (Glucagen Diagnostic Kit) 0 mg IM STAT PRN; Protocol PRN Reason: Hypoglycemia Protocol Diltiazem HCl 125 mg/ Sodium (Chloride) 125 mls @ 5 mls/hr IV .Q24H STA; Protocol Stop: 08/06/18 11:14 Last Titration: 08/05/18 14:30 Dose: 10 mg/hr, 10 mls/hr Vancomycin HCl (Vancomycin 1gm In Normal Saline Addvantage) 1 gm in 250 mls @ 166.667 mls/hr IV STAT TAYLER; Protocol Dextrose (Dextrose 5% In Water 1000 Ml) 1,000 mls @ 0 mls/hr IV .Q0M PRN; Protocol PRN Reason: Hypoglycemia Protocol Cefepime HCl 2 gm/ Sodium (Chloride) 50 mls @ 100 mls/hr IVPB Q8H TAYLER; Protocol Influenza Virus Vaccine (Fluzone Quad [id number]) 60 mcg IM .ONCE ONE Stop: 08/07/18 10:01 Insulin Human Regular (Novolin R) 0 unit SC ACHS TAYLER; Protocol Last Admin: 08/05/18 16:26 Dose: 10 units Rivaroxaban (Xarelto) 15 mg PO DAILY TAYLER Last Admin: 08/05/18 17:11 Dose: 15 mg Results - Vital Signs Recent Vital Signs: Last Vital Signs Temp 99.2 F 08/05/18 16:00 Pulse 118 H 08/05/18 18:30 Resp 19 08/05/18 18:30 BP 143/59 L 08/05/18 18:20 Pulse Ox 100 08/05/18 18:30 - Labs Result Diagrams: 08/05/18 11:12 08/05/18 11:12 Labs: Laboratory Results - last 24 hr 08/05/18 08/05/18 08/05/18 11:12 11:12 11:12 WBC 0.4 L* RBC 3.90 Hgb 10.1 L Hct 30.7 L MCV 78.7 L MCH 25.9 L MCHC 32.9 L RDW 18.8 H Plt Count 105 L MPV 8.0 Neut % (Auto) 10.8 L Lymph % (Auto) 20.5 [place] % (Auto) 61.4 H Eos % (Auto) 4.1 H Baso % (Auto) 3.2 H Neut # (Auto) 0.0 L Lymph # (Auto) 0.1 L [place] # (Auto) 0.2 Eos # (Auto) 0.0 Baso # (Auto) 0.0 Total Counted Cancelled Neutrophils % (Manual) Cancelled Band Neutrophils % Cancelled Lymphocytes % (Manual) Cancelled Reactive Lymphs % Cancelled Monocytes % (Manual) Cancelled Eosinophils % (Manual) Cancelled Basophils % (Manual) Cancelled Metamyelocytes % Cancelled Myelocytes % Cancelled Promyelocytes % Cancelled Blast Cells % Cancelled Plasma Cell % (Manual) Cancelled Nucleated RBC % Cancelled Hypersegmented Polys Cancelled Smudge Cells Cancelled Toxic Granulation Cancelled Dohle Bodies Cancelled Joce Rods Cancelled Platelet Estimate Cancelled Plt Clumps, EDTA Cancelled Large Platelets Cancelled Giant Platelets Cancelled RBC Morphology Cancelled Polychromasia Cancelled Hypochromasia (manual) Cancelled Poikilocytosis (manual Cancelled Basophilic Stippling Cancelled Anisocytosis (manual) Cancelled Microcytosis (manual) Cancelled Macrocytosis (manual) Cancelled Spherocytes Cancelled Sickle Cells Cancelled Target Cells Cancelled Tear Drop Cells Cancelled Ovalocytes Cancelled Stomatocytes Cancelled Helmet Cells Cancelled [place] Bodies Cancelled [place] Cells Cancelled Acanthocytes (Spur) Cancelled Rouleaux Cancelled Schistocytes Cancelled Smear Path Review PT 16.1 H INR 1.5 APTT 33 pO2 VBG pH VBG pCO2 VBG HCO3 VBG Total CO2 VBG Base Excess VBG Potassium Glucose Lactate Crit Value Called To Crit Value Called By Crit Value Read Back Blood Gas Notified Time Sodium 133 Potassium 4.0 Chloride 92 L Carbon Dioxide 28 Anion Gap 18 BUN 11 Creatinine 0.7 Est GFR ( Amer) > 60 Est GFR (Non-Af Amer) > 60 POC Glucose (mg/dL) Random Glucose 445 H* Lactic Acid Calcium 8.8 Total Bilirubin 1.6 H AST 12 L ALT 13 Alkaline Phosphatase 102 Total Creatine Kinase CK-MB (Mass) Troponin I 0.2030 H* NT-Pro-B Natriuret Pep 8060 H Total Protein 6.1 L Albumin 3.5 Globulin 2.6 Albumin/Globulin Ratio 1.3 TSH 3rd Generation 1.02 Venous Blood Potassium Urine Color Urine Clarity Urine pH Ur Specific [place] Urine Protein Urine Glucose (UA) Urine Ketones Urine Blood Urine Nitrate Urine Bilirubin Urine Urobilinogen Ur Leukocyte Esterase Urine WBC (Auto) Urine RBC (Auto) Ur Squamous Epith Cells Urine Bacteria 08/05/18 08/05/18 08/05/18 11:30 13:21 13:21 WBC RBC Hgb Hct MCV MCH MCHC RDW Plt Count MPV Neut % (Auto) Lymph % (Auto) [place] % (Auto) Eos % (Auto) Baso % (Auto) Neut # (Auto) Lymph # (Auto) [place] # (Auto) Eos # (Auto) Baso # (Auto) Total Counted Neutrophils % (Manual) Band Neutrophils % Lymphocytes % (Manual) Reactive Lymphs % Monocytes % (Manual) Eosinophils % (Manual) Basophils % (Manual) Metamyelocytes % Myelocytes % Promyelocytes % Blast Cells % Plasma Cell % (Manual) Nucleated RBC % Hypersegmented Polys Smudge Cells Toxic Granulation Dohle Bodies Joce Rods Platelet Estimate Plt Clumps, EDTA Large Platelets Giant Platelets RBC Morphology Polychromasia Hypochromasia (manual) Poikilocytosis (manual Basophilic Stippling Anisocytosis (manual) Microcytosis (manual) Macrocytosis (manual) Spherocytes Sickle Cells Target Cells Tear Drop Cells Ovalocytes Stomatocytes Helmet Cells [place] Bodies Edgardo Cells Acanthocytes (Spur) Rouleaux Schistocytes Smear Path Review PT INR APTT pO2 18 L VBG pH 7.52 H VBG pCO2 36 L VBG HCO3 28.2 VBG Total CO2 30.5 H VBG Base Excess 6.4 H VBG Potassium 3.8 Glucose 459 H* Lactate 2.2 H Crit Value Called To Horacio Crit Value Called By Lary galloway Crit Value Read Back Y Blood Gas Notified Time 1138 Sodium 136.0 Potassium Chloride 100.0 Carbon Dioxide Anion Gap BUN Creatinine Est GFR ( Amer) Est GFR (Non-Af Amer) POC Glucose (mg/dL) Random Glucose Lactic Acid 1.7 Calcium Total Bilirubin AST ALT Alkaline Phosphatase Total Creatine Kinase CK-MB (Mass) Troponin I NT-Pro-B Natriuret Pep Total Protein Albumin Globulin Albumin/Globulin Ratio TSH 3rd Generation Venous Blood Potassium 3.8 Urine Color Yellow Urine Clarity Hazy Urine pH 5.0 Ur Specific [place] 1.022 Urine Protein 2+ H Urine Glucose (UA) 3+ H Urine Ketones 1+ H Urine Blood 1+ H Urine Nitrate Positive H Urine Bilirubin Negative Urine Urobilinogen 4.0 H Ur Leukocyte Esterase Neg Urine WBC (Auto) 18 H Urine RBC (Auto) 6 H Ur Squamous Epith Cells 17 H Urine Bacteria Few H 08/05/18 08/05/18 16:17 17:13 WBC RBC Hgb Hct MCV MCH MCHC RDW Plt Count MPV Neut % (Auto) Lymph % (Auto) [place] % (Auto) Eos % (Auto) Baso % (Auto) Neut # (Auto) Lymph # (Auto) [place] # (Auto) Eos # (Auto) Baso # (Auto) Total Counted Neutrophils % (Manual) Band Neutrophils % Lymphocytes % (Manual) Reactive Lymphs % Monocytes % (Manual) Eosinophils % (Manual) Basophils % (Manual) Metamyelocytes % Myelocytes % Promyelocytes % Blast Cells % Plasma Cell % (Manual) Nucleated RBC % Hypersegmented Polys Smudge Cells Toxic Granulation Dohle Bodies Joce Rods Platelet Estimate Plt Clumps, EDTA Large Platelets Giant Platelets RBC Morphology Polychromasia Hypochromasia (manual) Poikilocytosis (manual Basophilic Stippling Anisocytosis (manual) Microcytosis (manual) Macrocytosis (manual) Spherocytes Sickle Cells Target Cells Tear Drop Cells Ovalocytes Stomatocytes Helmet Cells [place] Bodies Edgardo Cells Acanthocytes (Spur) Rouleaux Schistocytes Smear Path Review PT INR APTT pO2 VBG pH VBG pCO2 VBG HCO3 VBG Total CO2 VBG Base Excess VBG Potassium Glucose Lactate Crit Value Called To Crit Value Called By Crit Value Read Back Blood Gas Notified Time Sodium Potassium Chloride Carbon Dioxide Anion Gap BUN Creatinine Est GFR ( Amer) Est GFR (Non-Af Amer) POC Glucose (mg/dL) 415 H* Random Glucose Lactic Acid Calcium Total Bilirubin AST ALT Alkaline Phosphatase Total Creatine Kinase 20 L CK-MB (Mass) 0.69 Troponin I 0.1980 H* NT-Pro-B Natriuret Pep Total Protein Albumin Globulin Albumin/Globulin Ratio TSH 3rd Generation Venous Blood Potassium Urine Color Urine Clarity Urine pH Ur Specific [place] Urine Protein Urine Glucose (UA) Urine Ketones Urine Blood Urine Nitrate Urine Bilirubin Urine Urobilinogen Ur Leukocyte Esterase Urine WBC (Auto) Urine RBC (Auto) Ur Squamous Epith Cells Urine Bacteria Assessment & Plan (1) Fever and neutropenia Status: Acute (2) Lymphoma Status: Acute (3) History of CVA with residual deficit Status: Acute (4) Atrial fibrillation Status: Acute (5) Sepsis Status: Acute (6) Diabetes mellitus Status: Acute - Assessment and Plan (Free Text) Assessment: start broad spectrum coverage port in right chest appears ok will screen for flu consider biofire PCR resp pathogen array
[2018-08-05] MEDS: Cefepime 2 GM in Sodium Chloride 0.9% 100 ML IVPB SCH (20:01)
[2018-08-05] MEDS: (Lantus) Insulin Glargine, Recombinant SC SCH (21:52)
[2018-08-05 23:23] LABS: CK-MB 0.68 ng/mL (0.0-3.38); TROPONIN I 0.356 ng/mL (0.00-0.120)
--- NOTE | 2018-08-05 23:50 | CARD ---
APPROVED REPORT Date of service: 08/05/2018 EXAM: Two-dimensional and M-mode echocardiogram with Doppler and color Doppler. Other Information Quality : GoodRhythm : INDICATION Palpitations fever Surgery/Intervention CABD DIMENSIONS IVSd1.0 (0.7-1.1cm)Aortic Root (2D)3.2 (2.0-3.7cm) LVDd4.8 (3.9-5.9cm)PWd1.2 (0.7-1.1cm) LA Btnjmg89 (18-58mL)LVDs3.4 (2.5-4.0cm) FS (%) 28.5 %LVEF (%)54.8 (>50%) LVEF (Villegas's)44.26 %IVC0.00 cm M-Mode DIMENSIONS Left Atrium (MM)5.03 (2.5-4.0cm)IVSd1.03 (0.7-1.1cm) Aortic Root2.60 (2.2-3.7cm)LVDd4.90 (4.0-5.6cm) Aortic Cusp Exc.2.10 (1.5-2.0cm)PWd1.36 (0.7-1.1cm) FS (%) 18 %LVDs4.04 (2.0-3.8cm) TAPSE12.89 cmLVEF (%)44 (>50%) Mitral Valve MV E Nukiigsj89.6cm/sMV A Kstdkcpy07.7cm/sE/A ratio1.3 KGCK730.88 cm/s TDI Lateral E' Peak V10.10cm/sMedial E' Peak V5.96cm/sE/Lateral E'9.5 E/Medial E'16.0 Tricuspid Valve TR Peak Ygpodnmm379ym/sTR Peak Gr.[id number] LEFT VENTRICLE The left ventricle is normal size. There is normal left ventricular wall thickness. The systolic function is moderately impaired. The left ventricular diastolic function is normal. RIGHT VENTRICLE The right ventricle is normal size. ATRIA The left atrium is moderately dilated. The right atrium size is normal. AORTIC VALVE The aortic valve is normal in structure. MITRAL VALVE Mitral regurgitation is mild. TRICUSPID VALVE There is moderate tricuspid regurgitation. <Conclusion> Moderate LV systolic dysfunction. Moderately dilated LA. Mild MR. Moderate TR.
[2018-08-06] MEDS: Cefepime 2 GM in Sodium Chloride 0.9% 100 ML IVPB SCH ×3 (02:49→20:21)
[2018-08-06] MEDS: (Novolin R) Insulin Human Regular 100 units/ml vial SC SCH ×4 (04:45→22:09)
[2018-08-06 06:40] LABS: ALB/GLOB RATIO 1.1 (1.0-2.1); ALT/SGPT 10 U/L (9-52); AST/SGOT 13 U/L (14-36); BLOOD UREA NITROGEN 12 mg/dL (7-17); CALCIUM 8.5 mg/dl (8.6-10.4); GFR NON-AFRICAN AMERICAN > 60
[2018-08-06 06:47] LABS: EOS # 0.1 K/uL (0.0-0.7); EOS % 18.1 % (0.0-4.0); HEMOGLOBIN 8.6 g/dL (11.0-16.0); LYMPH # 0.1 K/uL (1.0-4.3); MEAN CELL VOLUME 78.1 fL (81.0-99.0); MEAN CORPUSCULAR HGB CONC 33.3 g/dL (33.0-37.0); MEAN PLATELET VOLUME 8.8 fL (7.2-11.7); MONO # 0.3 K/uL (0.0-0.8); MONO % 51.6 % (0.0-10.0); NEUT # 0.1 K/uL (1.8-7.0); NEUT % 19.3 % (50.0-75.0); NRBC % 0.4 % (0.0-2.0); RBC 3.3 Mil/uL (3.80-5.20); RED CELL DISTRIBUTION WIDTH 18.8 % (11.5-14.5)
[2018-08-06 06:49] LABS: WHITE BLOOD COUNT 0.6 K/uL (4.8-10.8)
[2018-08-06] MEDS ORDERED: Potassium Phosphate 15 MMOLE in Dextrose 5% In Water 250 ML IVPB ONE (10:00)
[2018-08-06] MEDS: Heparin25000 units/250ml 1/2NS 25,000 UNITS/250 ML BAG IV PRN (12:00)
[2018-08-06] MEDS: Sodium Chloride 0.9% 1,000 ML IV SCH (12:00)
--- NOTE | 2018-08-06 12:04 | CP.PCM.PN ---
Subjective - Date & Time of Evaluation Date of Evaluation: 08/06/18 Time of Evaluation: 12:01 - Subjective Subjective: pt stilllecopeania has positive tiponine no chest pain Objective - Vital Signs/Intake and Output Vital Signs (last 24 hours): Temp Pulse Resp BP Pulse Ox 98.8 F 104 H 25 H 129/75 99 08/06/18 08:00 08/06/18 11:19 08/06/18 11:19 08/06/18 11:19 08/06/18 11:19 Intake and Output: 08/06/18 08/06/18 06:59 18:59 Intake Total 470 740 Output Total 900 700 Balance -430 40 - Medications Medications: Current Medications Acetaminophen (Tylenol 325mg Tab) 650 mg PO Q6 PRN PRN Reason: Fever >100.4 F Aspirin (Aspirin Chewable) 81 mg PO DAILY [facility] Dextrose (Glutose 15) 0 gm PO ONCE PRN; Protocol PRN Reason: Hypoglycemia Protocol Dextrose (Dextrose 50% Inj) 0 ml IV STAT PRN; Protocol PRN Reason: Hypoglycemia Protocol Glucagon (Glucagen Diagnostic Kit) 0 mg IM STAT PRN; Protocol PRN Reason: Hypoglycemia Protocol Dextrose (Dextrose 5% In Water 1000 Ml) 1,000 mls @ 0 mls/hr IV .Q0M PRN; Protocol PRN Reason: Hypoglycemia Protocol Cefepime HCl 2 gm/ Sodium (Chloride) 100 mls @ 200 mls/hr IVPB Q8H [facility]; Protocol Last Admin: 08/06/18 02:49 Dose: 200 mls/hr Potassium Phosphate 15 mmole/ (Dextrose) 255 mls @ 42.5 mls/hr IVPB ONCE ONE Stop: 08/06/18 15:59 Heparin Sodium/Sodium Chloride (Heparin 16047 Units/250ml 1/2 Normal Saline) 25,000 units in 250 mls @ 8.614 mls/hr IV .Q24H PRN; Protocol PRN Reason: PROTOCOL Sodium Chloride (Sodium Chloride 0.9%) 1,000 mls @ 50 mls/hr IV .Q20H [facility] Influenza Virus Vaccine (Fluzone Quad [id number]) 60 mcg IM .ONCE ONE Stop: 08/07/18 10:01 Insulin Glargine (Lantus) 50 unit SC [facility] Last Admin: 08/05/18 21:52 Dose: 50 u Insulin Human Regular (Novolin R) 0 unit SC [facility]; Protocol Last Admin: 08/06/18 07:30 Dose: Not Given Metoprolol Tartrate (Lopressor) 25 mg PO BID [facility] Rosuvastatin Calcium (Crestor) 10 mg PO HS [facility] Verapamil HCl (Verapamil Inj) 2.5 mg IVP Q6H PRN PRN Reason: Heart rate - Labs Labs: 08/06/18 06:12 08/06/18 06:12 PT 16.1 SECONDS (9.7-12.2) H 08/05/18 11:12 INR 1.5 08/05/18 11:12 APTT 33 SECONDS (21-34) 08/05/18 11:12 - Constitutional Appears: Non-toxic - Head Exam Head Exam: ATRAUMATIC - Eye Exam Eye Exam: EOMI, Normal appearance Pupil Exam: NORMAL ACCOMODATION - ENT Exam ENT Exam: Normal Exam - Neck Exam Neck Exam: Full ROM - Respiratory Exam Respiratory Exam: Clear to Ausculation Bilateral - Cardiovascular Exam Cardiovascular Exam: REGULAR RHYTHM - GI/Abdominal Exam GI & Abdominal Exam: Normal Bowel Sounds - Exam Exam: NORMAL INSPECTION - Back Exam Back Exam: NORMAL INSPECTION - Neurological Exam Neurological Exam: Normal Gait - Psychiatric Exam Psychiatric exam: Normal Affect - Skin Skin Exam: Normal Color Assessment and Plan - Assessment and Plan (Free Text) Assessment: lecopeania ac uti achi triponin s/p coronary bypass triple vessel dis Plan: cont as per icu care await cardiology cons
--- NOTE | 2018-08-06 15:32 | CARD ---
APPROVED REPORT Date of service: 08/05/2018 EKG Measurement Heart [id number] <Conclusion> Atrial fibrillation with rapid ventricular response Possible Inferior infarct, age undetermined Anteroseptal infarct, age undetermined ST & T wave abnormality, consider lateral ischemia Abnormal ECG
--- NOTE | 2018-08-06 16:00 | CP.PCM.CON ---
History of Present Illness - History of Present Illness History of Present Illness: 62 yo female with h/o lymphoma on current chemo; CAD, s/p CABG 2016 in [place]; HTN;HLD;T2D; PAF on rivaroxaban as outpatient; presented to with generlized malaise, wekaness, decreased exercise tolerance for the past several days. Came for visit from [place]. Found to be febrile to 101.5F and in rapid AF. Denies chest pain, palpitations, dyspnea, diaphoresis, syncope, abdominal pain, diarrhea, nausea or vomiting. Poor baseline exercise tolerance due to malaise. No exertional symptoms Review of Systems - Review of Systems Review of Systems: allothers are negative except HPI Past Patient History - Past Social History Smoking Status: Never Smoked - CARDIAC Hx Atrial Fibrillation: Yes Other/Comment: quadruple bypass - ENDOCRINE/METABOLIC Hx Diabetes Mellitus Type 2: Yes - HEMATOLOGICAL/ONCOLOGICAL Hx Chemotherapy: Yes - MUSCULOSKELETAL/RHEUMATOLOGICAL Hx Falls: No - PSYCHIATRIC Hx Substance Use: No - SURGICAL HISTORY Hx Coronary Artery Bypass Graft: Yes - ANESTHESIA Hx Anesthesia: Yes Hx Anesthesia Reactions: No Hx Malignant Hyperthermia: No Has any member of the family had a problem w/ anesthesia?: No Meds Allergies/Adverse Reactions: Allergies Allergy/AdvReac Type Severity Reaction Status Date / Time No Known Allergies Allergy Verified 08/05/18 10:58 - Medications Medications: Current Medications Acetaminophen (Tylenol 325mg Tab) 650 mg PO Q6 PRN PRN Reason: Fever >100.4 F Aspirin (Aspirin Chewable) 81 mg PO DAILY [facility] Last Admin: 08/06/18 12:11 Dose: 81 mg Dextrose (Glutose 15) 0 gm PO ONCE PRN; Protocol PRN Reason: Hypoglycemia Protocol Dextrose (Dextrose 50% Inj) 0 ml IV STAT PRN; Protocol PRN Reason: Hypoglycemia Protocol Glucagon (Glucagen Diagnostic Kit) 0 mg IM STAT PRN; Protocol PRN Reason: Hypoglycemia Protocol Dextrose (Dextrose 5% In Water 1000 Ml) 1,000 mls @ 0 mls/hr IV .Q0M PRN; Protocol PRN Reason: Hypoglycemia Protocol Cefepime HCl 2 gm/ Sodium (Chloride) 100 mls @ 200 mls/hr IVPB Q8H [facility]; Protocol Last Admin: 08/06/18 11:30 Dose: 200 mls/hr Potassium Phosphate 15 mmole/ (Dextrose) 255 mls @ 42.5 mls/hr IVPB ONCE ONE Stop: 08/06/18 15:59 Last Admin: 08/06/18 12:00 Dose: 42.5 mls/hr Heparin Sodium/Sodium Chloride (Heparin 56567 Units/250ml 1/2 Normal Saline) 25,000 units in 250 mls @ 8.614 mls/hr IV .Q24H PRN; Protocol PRN Reason: PROTOCOL Last Admin: 08/06/18 12:00 Dose: 9 units/kg/hr, 8.614 mls/hr Sodium Chloride (Sodium Chloride 0.9%) 1,000 mls @ 50 mls/hr IV .Q20H [facility] Last Admin: 08/06/18 12:00 Dose: 50 mls/hr Influenza Virus Vaccine (Fluzone Quad [id number]) 60 mcg IM .ONCE ONE Stop: 08/07/18 10:01 Insulin Glargine (Lantus) 50 unit SC [facility] Last Admin: 08/05/18 21:52 Dose: 50 u Insulin Human Regular (Novolin R) 0 unit SC [facility]; Protocol Last Admin: 08/06/18 12:13 Dose: 2 units Metoprolol Tartrate (Lopressor) 25 mg PO BID [facility] Last Admin: 08/06/18 10:20 Dose: 25 mg Rosuvastatin Calcium (Crestor) 10 mg PO [facility] Verapamil HCl (Verapamil Inj) 2.5 mg IVP Q6H PRN PRN Reason: Heart rate Physical Exam - Constitutional Appears: Older Than Stated Age, Chronically Ill - Head Exam Head Exam: ATRAUMATIC, NORMOCEPHALIC - Eye Exam Pupil Exam: PERRL - Neck Exam Neck exam: Positive for: Full Rom. Negative for: Lymphadenopathy - Respiratory Exam Respiratory Exam: Clear to Auscultation Bilateral, NORMAL BREATHING PATTERN - Cardiovascular Exam Cardiovascular Exam: Irregular Rhythm, +S1, +S2. absent: JVD - GI/Abdominal Exam GI & Abdominal Exam: Normal Bowel Sounds. absent: Tenderness - Back Exam Back exam: absent: CVA tenderness (L) - Neurological Exam Neurological exam: Alert, CN II-XII Intact, Oriented x3 - Psychiatric Exam Psychiatric exam: Normal Affect, Normal Mood - Skin Skin Exam: Pallor, Pallor Results - Vital Signs Recent Vital Signs: Last Vital Signs Temp 98.4 F 08/06/18 12:00 Pulse 89 08/06/18 15:20 Resp 18 08/06/18 15:20 BP 128/57 L 08/06/18 15:20 Pulse Ox 99 08/06/18 15:20 - Labs Result Diagrams: 08/06/18 06:12 08/06/18 06:12 Labs: Laboratory Results - last 24 hr 08/05/18 08/05/18 08/05/18 08:45 11:12 16:17 WBC RBC Hgb Hct MCV MCH MCHC RDW Plt Count MPV Neut % (Auto) Lymph % (Auto) [place] % (Auto) Eos % (Auto) Baso % (Auto) Neut # (Auto) Lymph # (Auto) [place] # (Auto) Eos # (Auto) Baso # (Auto) Total Counted Cancelled Neutrophils % (Manual) Cancelled Band Neutrophils % Cancelled Lymphocytes % (Manual) Cancelled Reactive Lymphs % Cancelled Monocytes % (Manual) Cancelled Eosinophils % (Manual) Cancelled Basophils % (Manual) Cancelled Metamyelocytes % Cancelled Myelocytes % Cancelled Promyelocytes % Cancelled Blast Cells % Cancelled Plasma Cell % (Manual) Cancelled Nucleated RBC % Cancelled Differential Comment Hypersegmented Polys Cancelled Smudge Cells Cancelled Toxic Granulation Cancelled Dohle Bodies Cancelled Joce Rods Cancelled Platelet Estimate Cancelled Plt Clumps, EDTA Cancelled Large Platelets Cancelled Giant Platelets Cancelled RBC Morphology Cancelled Polychromasia Cancelled Hypochromasia (manual) Cancelled Poikilocytosis (manual Cancelled Basophilic Stippling Cancelled Anisocytosis (manual) Cancelled Microcytosis (manual) Cancelled Macrocytosis (manual) Cancelled Spherocytes Cancelled Sickle Cells Cancelled Target Cells Cancelled Tear Drop Cells Cancelled Ovalocytes Cancelled Stomatocytes Cancelled Helmet Cells Cancelled [place] Bodies Cancelled [place] Cells Cancelled Acanthocytes (Spur) Cancelled Rouleaux Cancelled Schistocytes Cancelled Smear Path Review Sodium Potassium Chloride Carbon Dioxide Anion Gap BUN Creatinine Est GFR ( Amer) Est GFR (Non-Af Amer) POC Glucose (mg/dL) 415 H* Random Glucose Lactic Acid Calcium Phosphorus Magnesium Total Bilirubin AST ALT Alkaline Phosphatase Total Creatine Kinase CK-MB (Mass) Troponin I Total Protein Albumin Globulin Albumin/Globulin Ratio Influenza Typ A,B (EIA) Negative for flu a/b 1108/05/18 08/05/18 17:13 21:23 22:45 WBC RBC Hgb Hct MCV MCH MCHC RDW Plt Count MPV Neut % (Auto) Lymph % (Auto) [place] % (Auto) Eos % (Auto) Baso % (Auto) Neut # (Auto) Lymph # (Auto) [place] # (Auto) Eos # (Auto) Baso # (Auto) Total Counted Neutrophils % (Manual) Band Neutrophils % Lymphocytes % (Manual) Reactive Lymphs % Monocytes % (Manual) Eosinophils % (Manual) Basophils % (Manual) Metamyelocytes % Myelocytes % Promyelocytes % Blast Cells % Plasma Cell % (Manual) Nucleated RBC % Differential Comment Hypersegmented Polys Smudge Cells Toxic Granulation Dohle Bodies Joce Rods Platelet Estimate Plt Clumps, EDTA Large Platelets Giant Platelets RBC Morphology Polychromasia Hypochromasia (manual) Poikilocytosis (manual Basophilic Stippling Anisocytosis (manual) Microcytosis (manual) Macrocytosis (manual) Spherocytes Sickle Cells Target Cells Tear Drop Cells Ovalocytes Stomatocytes Helmet Cells [place] Bodies [place] Cells Acanthocytes (Spur) Rouleaux Schistocytes Smear Path Review Sodium Potassium Chloride Carbon Dioxide Anion Gap BUN Creatinine Est GFR ( Amer) Est GFR (Non-Af Amer) POC Glucose (mg/dL) 422 H* Random Glucose Lactic Acid Calcium Phosphorus Magnesium Total Bilirubin AST ALT Alkaline Phosphatase Total Creatine Kinase 20 L 20 L CK-MB (Mass) 0.69 0.68 Troponin I 0.1980 H* 0.3560 H* Total Protein Albumin Globulin Albumin/Globulin Ratio Influenza Typ A,B (EIA) 08/05/18 08/06/18 08/06/18 22:45 06:12 06:12 WBC 0.6 L* RBC 3.30 L Hgb 8.6 L Hct 25.8 L MCV 78.1 L MCH 26.0 L MCHC 33.3 RDW 18.8 H Plt Count 98 L MPV 8.8 Neut % (Auto) 19.3 L Lymph % (Auto) 10.0 L [place] % (Auto) 51.6 H Eos % (Auto) 18.1 H Baso % (Auto) 1.0 Neut # (Auto) 0.1 L Lymph # (Auto) 0.1 L [place] # (Auto) 0.3 Eos # (Auto) 0.1 Baso # (Auto) 0.0 Total Counted Cancelled Neutrophils % (Manual) Cancelled Band Neutrophils % Cancelled Lymphocytes % (Manual) Cancelled Reactive Lymphs % Cancelled Monocytes % (Manual) Cancelled Eosinophils % (Manual) Cancelled Basophils % (Manual) Cancelled Metamyelocytes % Cancelled Myelocytes % Cancelled Promyelocytes % Cancelled Blast Cells % Cancelled Plasma Cell % (Manual) Cancelled Nucleated RBC % Cancelled Differential Comment Hypersegmented Polys Cancelled Smudge Cells Cancelled Toxic Granulation Cancelled Dohle Bodies Cancelled Joce Rods Cancelled Platelet Estimate Cancelled Plt Clumps, EDTA Cancelled Large Platelets Cancelled Giant Platelets Cancelled RBC Morphology Cancelled Polychromasia Cancelled Hypochromasia (manual) Cancelled Poikilocytosis (manual Cancelled Basophilic Stippling Cancelled Anisocytosis (manual) Cancelled Microcytosis (manual) Cancelled Macrocytosis (manual) Cancelled Spherocytes Cancelled Sickle Cells Cancelled Target Cells Cancelled Tear Drop Cells Cancelled Ovalocytes Cancelled Stomatocytes Cancelled Helmet Cells Cancelled [place] Bodies Cancelled [place] Cells Cancelled Acanthocytes (Spur) Cancelled Rouleaux Cancelled Schistocytes Cancelled Smear Path Review Sodium 135 Potassium 3.3 L Chloride 100 Carbon Dioxide 28 Anion Gap 10 BUN 12 Creatinine 0.7 Est GFR ( Amer) > 60 Est GFR (Non-Af Amer) > 60 POC Glucose (mg/dL) Random Glucose 104 Lactic Acid 2.1 Calcium 8.5 L Phosphorus 2.3 L Magnesium 1.7 Total Bilirubin 1.0 AST 13 L ALT 10 Alkaline Phosphatase 94 Total Creatine Kinase CK-MB (Mass) Troponin I 0.4150 H* Total Protein 5.7 L Albumin 3.0 L Globulin 2.7 Albumin/Globulin Ratio 1.1 Influenza Typ A,B (EIA) - EKG Data EKG comments: EKG my review: AF with rapid ventricular response Assessment & Plan (1) Cardiac enzymes elevated Assessment and Plan: Likely secondary to demand (Type II ID) in setting of rapid AF, fever. ACS ir less likely Patient is already on anticoagulation for AF Cont ith other cardiac meds and treat the underlying sepsis/neutropenia Status: Acute (2) Atherosclerotic heart disease of [place] coronary artery without angina pectoris Assessment and Plan: Stble CAD S/p CABG 2 yearts ago Cont with ASA/bblocker/statin Status: Acute (3) Paroxysmal atrial fibrillation Assessment and Plan: Rate improved with decrease of fever and diltiazem drip Cont with metoprolol Anticoagulation for stroke prevention with IV heaprin May restart rivaroxaban thereafter Status: Acute (4) Ischemic cardiomyopathy Assessment and Plan: Echo, in my preliminary review, shows mildlly reduced LV function Clinically euvolemic Status: Acute
--- NOTE | 2018-08-06 16:17 | CP.PCM.PN ---
Subjective - Date & Time of Evaluation Date of Evaluation: 08/06/18 Time of Evaluation: 16:14 - Subjective Subjective: Patient afebrile. denies any complaints Objective - Vital Signs/Intake and Output Vital Signs (last 24 hours): Temp Pulse Resp BP Pulse Ox 98.4 F 89 18 128/57 L 99 08/06/18 12:00 08/06/18 15:20 08/06/18 15:20 08/06/18 15:20 08/06/18 15:20 Intake and Output: 08/06/18 08/06/18 06:59 18:59 Intake Total 470 2533.0 Output Total 900 880 Balance -430 1653.0 - Medications Medications: Current Medications Acetaminophen (Tylenol 325mg Tab) 650 mg PO Q6 PRN PRN Reason: Fever >100.4 F Aspirin (Aspirin Chewable) 81 mg PO DAILY [facility] Last Admin: 08/06/18 12:11 Dose: 81 mg Dextrose (Glutose 15) 0 gm PO ONCE PRN; Protocol PRN Reason: Hypoglycemia Protocol Dextrose (Dextrose 50% Inj) 0 ml IV STAT PRN; Protocol PRN Reason: Hypoglycemia Protocol Glucagon (Glucagen Diagnostic Kit) 0 mg IM STAT PRN; Protocol PRN Reason: Hypoglycemia Protocol Dextrose (Dextrose 5% In Water 1000 Ml) 1,000 mls @ 0 mls/hr IV .Q0M PRN; Protocol PRN Reason: Hypoglycemia Protocol Cefepime HCl 2 gm/ Sodium (Chloride) 100 mls @ 200 mls/hr IVPB Q8H [facility]; Protocol Last Admin: 08/06/18 11:30 Dose: 200 mls/hr Heparin Sodium/Sodium Chloride (Heparin 99142 Units/250ml 1/2 Normal Saline) 25,000 units in 250 mls @ 8.614 mls/hr IV .Q24H PRN; Protocol PRN Reason: PROTOCOL Last Admin: 08/06/18 12:00 Dose: 9 units/kg/hr, 8.614 mls/hr Sodium Chloride (Sodium Chloride 0.9%) 1,000 mls @ 50 mls/hr IV .Q20H [facility] Last Admin: 08/06/18 12:00 Dose: 50 mls/hr Influenza Virus Vaccine (Fluzone Quad [id number]) 60 mcg IM .ONCE ONE Stop: 08/07/18 10:01 Insulin Glargine (Lantus) 50 unit SC [facility] Last Admin: 08/05/18 21:52 Dose: 50 u Insulin Human Regular (Novolin R) 0 unit SC [facility]; Protocol Last Admin: 08/06/18 12:13 Dose: 2 units Metoprolol Tartrate (Lopressor) 25 mg PO BID [facility] Last Admin: 08/06/18 10:20 Dose: 25 mg Rosuvastatin Calcium (Crestor) 10 mg PO [facility] Verapamil HCl (Verapamil Inj) 2.5 mg IVP Q6H PRN PRN Reason: Heart rate - Labs Labs: 08/06/18 06:12 08/06/18 06:12 PT 16.1 SECONDS (9.7-12.2) H 08/05/18 11:12 INR 1.5 08/05/18 11:12 APTT 33 SECONDS (21-34) 08/05/18 11:12 - Constitutional Appears: Well - Head Exam Head Exam: ATRAUMATIC, NORMAL INSPECTION, NORMOCEPHALIC - Eye Exam Pupil Exam: NORMAL ACCOMODATION - ENT Exam ENT Exam: Mucous Membranes Moist - Respiratory Exam Respiratory Exam: Clear to Ausculation Bilateral, NORMAL BREATHING PATTERN. absent: Rales, Respiratory Distress, Stridor - Cardiovascular Exam Cardiovascular Exam: REGULAR RHYTHM, +S1, +S2. absent: Murmur - GI/Abdominal Exam GI & Abdominal Exam: Normal Bowel Sounds - Extremities Exam Extremities Exam: Normal Inspection - Neurological Exam Neurological Exam: Alert, Awake, CN II-XII Intact, Oriented x3 Assessment and Plan - Assessment and Plan (Free Text) Assessment: Neutropenic fevers: continue abx as per ID neutropenic isolatoin NSTMEI: likely type II IA: continue asa, statin, lopressro and IV heparin -continue oral diet -monitor renal functoin continue dvt ppx IV heparin -contnue pud ppx Patient remains hemodynamically stable
[2018-08-06] MEDS: (Lantus) Insulin Glargine, Recombinant SC SCH (22:09)
[2018-08-07] MEDS: Cefepime 2 GM in Sodium Chloride 0.9% 100 ML IVPB SCH ×3 (03:47→18:53)
[2018-08-07 06:32] LABS: BASO % 1.5 % (0.0-2.0); EOS # 0.2 K/uL (0.0-0.7); EOS % 20.2 % (0.0-4.0); HEMOGLOBIN 9.1 g/dL (11.0-16.0); LYMPH # 0.1 K/uL (1.0-4.3); LYMPH % 12.3 % (20.0-40.0); MEAN CELL VOLUME 79.2 fL (81.0-99.0); MEAN CORPUSCULAR HEMOGLOBIN 25.1 pg (27.0-31.0); MEAN CORPUSCULAR HGB CONC 31.7 g/dL (33.0-37.0); MEAN PLATELET VOLUME 9.2 fL (7.2-11.7); MONO # 0.3 K/uL (0.0-0.8); MONO % 39.1 % (0.0-10.0); NEUT # 0.2 K/uL (1.8-7.0); NEUT % 26.9 % (50.0-75.0); NRBC % 0.7 % (0.0-2.0); RBC 3.61 Mil/uL (3.80-5.20); RED CELL DISTRIBUTION WIDTH 18.8 % (11.5-14.5)
[2018-08-07] MEDS: Sodium Chloride 0.9% 1,000 ML IV SCH ×2 (06:35→10:53)
[2018-08-07 06:45] LABS: WHITE BLOOD COUNT 0.8 K/uL (4.8-10.8)
[2018-08-07 07:15] LABS: ALB/GLOB RATIO 1.1 (1.0-2.1); ALBUMIN 3.1 g/dL (3.5-5.0); ALT/SGPT 24 U/L (9-52); AST/SGOT 23 U/L (14-36); BLOOD UREA NITROGEN 16 mg/dL (7-17); CALCIUM 8.3 mg/dl (8.6-10.4); GFR NON-AFRICAN AMERICAN > 60
--- NOTE | 2018-08-07 08:07 | CP.PCM.PN ---
Subjective - Date & Time of Evaluation Date of Evaluation: 08/07/18 Time of Evaluation: 08:05 - Subjective Subjective: Seen and examined No chest pain or dyspnea Objective - Vital Signs/Intake and Output Vital Signs (last 24 hours): Temp Pulse Resp BP Pulse Ox 98 F 103 H 19 126/60 99 08/07/18 04:00 08/07/18 06:00 08/07/18 06:00 08/07/18 06:21 08/07/18 06:00 Intake and Output: 08/07/18 08/07/18 06:59 18:59 Intake Total 1625.9 Output Total 550 Balance 1075.9 - Medications Medications: Current Medications Acetaminophen (Tylenol 325mg Tab) 650 mg PO Q6 PRN PRN Reason: Fever >100.4 F Aspirin (Aspirin Chewable) 81 mg PO DAILY [facility] Last Admin: 08/06/18 12:11 Dose: 81 mg Dextrose (Glutose 15) 0 gm PO ONCE PRN; Protocol PRN Reason: Hypoglycemia Protocol Dextrose (Dextrose 50% Inj) 0 ml IV STAT PRN; Protocol PRN Reason: Hypoglycemia Protocol Glucagon (Glucagen Diagnostic Kit) 0 mg IM STAT PRN; Protocol PRN Reason: Hypoglycemia Protocol Dextrose (Dextrose 5% In Water 1000 Ml) 1,000 mls @ 0 mls/hr IV .Q0M PRN; Protocol PRN Reason: Hypoglycemia Protocol Cefepime HCl 2 gm/ Sodium (Chloride) 100 mls @ 200 mls/hr IVPB Q8H [facility]; Protocol Last Admin: 08/07/18 03:47 Dose: 200 mls/hr Heparin Sodium/Sodium Chloride (Heparin 97789 Units/250ml 1/2 Normal Saline) 25,000 units in 250 mls @ 8.614 mls/hr IV .Q24H PRN; Protocol PRN Reason: PROTOCOL Last Titration: 08/07/18 03:52 Dose: 13 units/kg/hr, 12.442 mls/hr Sodium Chloride (Sodium Chloride 0.9%) 1,000 mls @ 50 mls/hr IV .Q20H [facility] Last Admin: 08/07/18 06:35 Dose: Not Given Influenza Virus Vaccine (Fluzone Quad [id number]) 60 mcg IM .ONCE ONE Stop: 08/07/18 10:01 Insulin Glargine (Lantus) 50 unit SC HS [facility] Last Admin: 08/06/18 22:09 Dose: 50 u Insulin Human Regular (Novolin R) 0 unit SC [facility]; Protocol Last Admin: 08/06/18 22:09 Dose: Not Given Metoprolol Tartrate (Lopressor) 50 mg PO BID [facility] Rosuvastatin Calcium (Crestor) 10 mg PO HS [facility] Last Admin: 08/06/18 22:10 Dose: 10 mg Verapamil HCl (Verapamil Inj) 2.5 mg IVP Q6H PRN PRN Reason: Heart rate - Labs Labs: 08/07/18 06:23 08/07/18 06:20 PT 16.1 SECONDS (9.7-12.2) H 08/05/18 11:12 INR 1.5 08/05/18 11:12 APTT 43 SECONDS (21-34) H 08/07/18 02:20 - Constitutional Appears: Chronically Ill - Head Exam Head Exam: ATRAUMATIC - ENT Exam ENT Exam: Mucous Membranes Dry - Respiratory Exam Respiratory Exam: Clear to Ausculation Bilateral - Cardiovascular Exam Cardiovascular Exam: Irregular Rhythm, +S1, +S2 - GI/Abdominal Exam GI & Abdominal Exam: Soft. absent: Tenderness - Neurological Exam Neurological Exam: CN II-XII Intact, Oriented x3 - Skin Skin Exam: Dry Assessment and Plan (1) Cardiac enzymes elevated Assessment & Plan: Likely secondary to demand (Type II [place]) in setting of rapid AF, fever. ACS ir less likely Patient is already on anticoagulation for AF Cont ith other cardiac meds and treat the underlying sepsis/neutropenia Status: Acute (2) Atherosclerotic heart disease of [place] coronary artery without angina pectoris Assessment & Plan: (2) Atherosclerotic heart disease of [place] coronary artery without angina pecto ris Assessment and Plan: Stble CAD S/p CABG 2 yearts ago Cont with ASA/bblocker/statin Status: Acute Status: Acute (3) Paroxysmal atrial fibrillation Assessment & Plan: (3) Paroxysmal atrial fibrillation Assessment and Plan: Rate uncontrolled this am Will increase metoprolol to 50 mg twice daily Anticoagulation for stroke prevention with IV heaprin May restart rivaroxaban thereafter Status: Acute Status: Acute (4) Ischemic cardiomyopathy Assessment & Plan: Echo with mild to moderatre LV dsfxn Clinically euvolemic Will add low dose CHELSY and titrate as tolerated Status: Acute Status: Acute
[2018-08-07] MEDS: (Novolin R) Insulin Human Regular 100 units/ml vial SC SCH ×3 (09:10→16:54)
[2018-08-07] MEDS ORDERED: Influenza Vaccine 60 MCG/0.5 ML SYR (3 yr & up) IM ONE (10:00)
--- NOTE | 2018-08-07 11:03 | CP.PCM.PN ---
Subjective - Date & Time of Evaluation Date of Evaluation: 08/07/18 Time of Evaluation: 11:00 - Subjective Subjective: pt seen and examined denied chest pain still in at fib [id number] still lecopeania .8 wbc Objective - Vital Signs/Intake and Output Vital Signs (last 24 hours): Temp Pulse Resp BP Pulse Ox 98 F 105 H 15 147/63 92 L 08/07/18 04:00 08/07/18 08:20 08/07/18 08:20 08/07/18 08:20 08/07/18 08:20 Intake and Output: 08/07/18 08/07/18 06:59 18:59 Intake Total 1625.9 85 Output Total 550 Balance 1075.9 85 - Medications Medications: Current Medications Acetaminophen (Tylenol 325mg Tab) 650 mg PO Q6 PRN PRN Reason: Fever >100.4 F Aspirin (Aspirin Chewable) 81 mg PO DAILY [facility] Last Admin: 08/07/18 09:10 Dose: 81 mg Dextrose (Glutose 15) 0 gm PO ONCE PRN; Protocol PRN Reason: Hypoglycemia Protocol Dextrose (Dextrose 50% Inj) 0 ml IV STAT PRN; Protocol PRN Reason: Hypoglycemia Protocol Glucagon (Glucagen Diagnostic Kit) 0 mg IM STAT PRN; Protocol PRN Reason: Hypoglycemia Protocol Heparin Sodium (Porcine) (Heparin) 2,865 units IV ONCE ONE Stop: 08/07/18 11:01 Dextrose (Dextrose 5% In Water 1000 Ml) 1,000 mls @ 0 mls/hr IV .Q0M PRN; Protocol PRN Reason: Hypoglycemia Protocol Cefepime HCl 2 gm/ Sodium (Chloride) 100 mls @ 200 mls/hr IVPB Q8H [facility]; Pr otocol Last Admin: 08/07/18 10:52 Dose: 200 mls/hr Heparin Sodium/Sodium Chloride (Heparin 54377 Units/250ml 1/2 Normal Saline) 25,000 units in 250 mls @ 8.614 mls/hr IV .Q24H PRN; Protocol PRN Reason: PROTOCOL Last Titration: 08/07/18 10:45 Dose: 15 units/kg/hr, 14.356 mls/hr Sodium Chloride (Sodium Chloride 0.9%) 1,000 mls @ 50 mls/hr IV .Q20H [facility] Last Admin: 08/07/18 10:53 Dose: 50 mls/hr Insulin Glargine (Lantus) 50 unit SC [facility] Last Admin: 08/06/18 22:09 Dose: 50 u Insulin Human Regular (Novolin R) 0 unit SC [facility]; Protocol Last Admin: 08/07/18 09:10 Dose: 2 units Lisinopril (Zestril) 2.5 mg PO DAILY [facility] Last Admin: 08/07/18 09:10 Dose: 2.5 mg Metoprolol Tartrate (Lopressor) 50 mg PO BID [facility] Last Admin: 08/07/18 09:11 Dose: Not Given Rosuvastatin Calcium (Crestor) 10 mg PO [facility] Last Admin: 08/06/18 22:10 Dose: 10 mg Verapamil HCl (Verapamil Inj) 2.5 mg IVP Q6H PRN PRN Reason: Heart rate - Labs Labs: 08/07/18 06:23 08/07/18 06:20 PT 16.1 SECONDS (9.7-12.2) H 08/05/18 11:12 INR 1.5 08/05/18 11:12 APTT 42 SECONDS (21-34) H 08/07/18 10:14 - Constitutional Appears: Non-toxic - Head Exam Head Exam: ATRAUMATIC - Eye Exam Eye Exam: EOMI, PERRL Pupil Exam: NORMAL ACCOMODATION - ENT Exam ENT Exam: Mucous Membranes Moist - Neck Exam Neck Exam: Full ROM - Respiratory Exam Respiratory Exam: Clear to Ausculation Bilateral - Cardiovascular Exam Cardiovascular Exam: Irregular Rhythm - GI/Abdominal Exam GI & Abdominal Exam: Soft, Normal Bowel Sounds - Exam Exam: NORMAL INSPECTION - Extremities Exam Extremities Exam: Full ROM - Back Exam Back Exam: NORMAL INSPECTION, vertebral tenderness - Neurological Exam Neurological Exam: Normal Gait - Psychiatric Exam Psychiatric exam: Normal Mood - Skin Skin Exam: Pallor Assessment and Plan - Assessment and Plan (Free Text) Assessment: lecopeelizabeth ashd at fib uti aneamia Plan: cont as per orders
[2018-08-07] MEDS: Heparin25000 units/250ml 1/2NS 25,000 UNITS/250 ML BAG IV PRN (11:27)
--- NOTE | 2018-08-07 14:38 | VASCLAB ---
Date of service: 08/05/2018 PROCEDURE: Lower Extremity Venous Duplex Exam. HISTORY: Leg swelling PRIORS: None. TECHNIQUE: Bilateral common femoral, femoral, popliteal and posterior tibial, peroneal and great saphenous veins were evaluated. Flow was assessed with color Doppler, compressibility, assessment of phasic flow and augmentation response. Report prepared by Nirmal Lynn, BOLIVAR, RVT FINDINGS: RIGHT: 1. Common Femoral Vein: 1.1. Compressibility - Fully compressible: Thrombus - None : Flow - Phasic: Augmentation -Normal: Reflux - None. 2. Femoral Vein: 2.1. Compressibility - Fully compressible: Thrombus - None : Flow - Phasic: Augmentation -Normal: Reflux - None. 3. Popliteal Vein: 3.1. Compressibility - Fully compressible: Thrombus - None : Flow - Phasic: Augmentation -Normal: Reflux - None. 4. Posterior Tibial Vein: 4.1. Compressibility - Fully compressible: Thrombus - None: Flow - Phasic: Augmentation -Normal: Reflux - None. 5. Peroneal Vein: 5.1. Compressibility - Fully compressible: Thrombus - None: Flow - Phasic: Augmentation -Normal: Reflux - None. 6. Great Saphenous Vein: 6.1. Compressibility - Fully compressible: Thrombus - None: Flow - Phasic: Augmentation - Normal: Reflux - None. LEFT: 1. Common Femoral Vein: 1.1. Compressibility - Fully compressible: Thrombus - None: Flow - Phasic: Augmentation -Normal: Reflux - None. 2. Femoral Vein: 2.1. Compressibility - Fully compressible: Thrombus - None: Flow - Phasic: Augmentation -Normal: Reflux - None. 3. Popliteal Vein: 3.1. Compressibility - Fully compressible: Thrombus - None : Flow - Phasic: Augmentation -Normal: Reflux - None. 4. Posterior Tibial Vein: 4.1. Compressibility - Fully compressible: Thrombus - None: Flow - Phasic: Augmentation -Normal: Reflux - None. 5. Peroneal Vein: 5.1. Compressibility - Fully compressible: Thrombus - None: Flow - Phasic: Augmentation -Normal: Reflux - None. 6. Great Saphenous Vein: 6.1. Compressibility - Fully compressible: Thrombus - None: Flow - Phasic: Augmentation - Normal: Reflux - None. OTHER FINDINGS: Right: None significant. Left: None significant. IMPRESSION: Right: No evidence of deep or superficial vein thrombosis of the right lower extremity. Normal valve function noted of the right side. Left: No evidence of deep or superficial vein thrombosis of the left lower extremity. Normal valve function noted of the left side.
--- NOTE | 2018-08-07 16:12 | CP.PCM.PN ---
Subjective - Date & Time of Evaluation Date of Evaluation: 08/07/18 Time of Evaluation: 07:00 - Subjective Subjective: afebrile alert denies chest pain cough or SOB cardio on board rate controlled c/s urine + MSSA still neutropenic await Heme eval Objective - Vital Signs/Intake and Output Vital Signs (last 24 hours): Temp Pulse Resp BP Pulse Ox 98.6 F 85 23 165/81 H 98 08/07/18 08:00 08/07/18 15:42 08/07/18 15:42 08/07/18 15:42 08/07/18 15:42 Intake and Output: 08/07/18 08/07/18 06:59 18:59 Intake Total 1625.9 840 Output Total 550 300 Balance 1075.9 540 - Medications Medications: Current Medications Acetaminophen (Tylenol 325mg Tab) 650 mg PO Q6 PRN PRN Reason: Fever >100.4 F Aspirin (Aspirin Chewable) 81 mg PO DAILY [facility] Last Admin: 08/07/18 09:10 Dose: 81 mg Dextrose (Glutose 15) 0 gm PO ONCE PRN; Protocol PRN Reason: Hypoglycemia Protocol Dextrose (Dextrose 50% Inj) 0 ml IV STAT PRN; Protocol PRN Reason: Hypoglycemia Protocol Glucagon (Glucagen Diagnostic Kit) 0 mg IM STAT PRN; Protocol PRN Reason: Hypoglycemia Protocol Dextrose (Dextrose 5% In Water 1000 Ml) 1,000 mls @ 0 mls/hr IV .Q0M PRN; Protocol PRN Reason: Hypoglycemia Protocol Cefepime HCl 2 gm/ Sodium (Chloride) 100 mls @ 200 mls/hr IVPB Q8H [facility]; Protocol Last Admin: 08/07/18 10:52 Dose: 200 mls/hr Heparin Sodium/Sodium Chloride (Heparin 93136 Units/250ml 1/2 Normal Saline) 25,000 units in 250 mls @ 8.614 mls/hr IV .Q24H PRN; Protocol PRN Reason: PROTOCOL Last Admin: 08/07/18 11:27 Dose: 15 units/kg/hr, 14.356 mls/hr Sodium Chloride (Sodium Chloride 0.9%) 1,000 mls @ 50 mls/hr IV .Q20H [facility] Last Admin: 08/07/18 10:53 Dose: 50 mls/hr Insulin Glargine (Lantus) 50 unit SC HS [facility] Last Admin: 08/06/18 22:09 Dose: 50 u Insulin Human Regular (Novolin R) 0 unit SC [facility]; Protocol Last Admin: 08/07/18 13:04 Dose: 2 units Lisinopril (Zestril) 2.5 mg PO DAILY [facility] Last Admin: 08/07/18 09:10 Dose: 2.5 mg Metoprolol Tartrate (Lopressor) 50 mg PO BID [facility] Last Admin: 08/07/18 09:11 Dose: Not Given Rosuvastatin Calcium (Crestor) 10 mg PO [facility] Last Admin: 08/06/18 22:10 Dose: 10 mg Verapamil HCl (Verapamil Inj) 2.5 mg IVP Q6H PRN PRN Reason: Heart rate - Labs Labs: 08/07/18 06:23 08/07/18 06:20 PT 16.1 SECONDS (9.7-12.2) H 08/05/18 11:12 INR 1.5 08/05/18 11:12 APTT 42 SECONDS (21-34) H 08/07/18 10:14 - Constitutional Appears: Non-toxic, Chronically Ill - Head Exam Head Exam: NORMOCEPHALIC - Eye Exam Eye Exam: absent: Scleral icterus - ENT Exam ENT Exam: Mucous Membranes Dry - Neck Exam Neck Exam: absent: Lymphadenopathy - Respiratory Exam Respiratory Exam: Decreased Breath Sounds - Cardiovascular Exam Cardiovascular Exam: REGULAR RHYTHM - GI/Abdominal Exam GI & Abdominal Exam: Distended, Soft - Rectal Exam Rectal Exam: Deferred - Exam Exam: NORMAL INSPECTION - Extremities Exam Extremities Exam: absent: Pedal Edema - Back Exam Back Exam: absent: CVA tenderness (L), CVA tenderness (R) - Neurological Exam Neurological Exam: Alert, Awake, CN II-XII Intact Additional comments: mild right sided weakness / facial assymetry - Psychiatric Exam Psychiatric exam: Normal Mood - Skin Skin Exam: Dry Assessment and Plan (1) Fever and neutropenia Status: Acute (2) Lymphoma Status: Acute (3) History of CVA with residual deficit Status: Acute (4) Atrial fibrillation Status: Acute (5) Sepsis Status: Acute (6) Diabetes mellitus Status: Acute - Assessment and Plan (Free Text) Assessment: neutropenic fever/ sepsis / UTI await Heme input cont IV antibiotics
[2018-08-07] MEDS: (Lantus) Insulin Glargine, Recombinant SC SCH (22:26)
[2018-08-08 00:10] VITALS: RESP 20
[2018-08-08] MEDS: Sodium Chloride 0.9% 1,000 ML IV SCH ×2 (02:19→21:54)
[2018-08-08] MEDS: Cefepime 2 GM in Sodium Chloride 0.9% 100 ML IVPB SCH ×2 (02:34→11:57)
[2018-08-08 07:54] LABS: BASO % 1.1 % (0.0-2.0); EOS # 0.1 K/uL (0.0-0.7); EOS % 4.3 % (0.0-4.0); HEMOGLOBIN 8.3 g/dL (11.0-16.0); LYMPH # 0.1 K/uL (1.0-4.3); LYMPH % 7.5 % (20.0-40.0); MEAN CELL VOLUME 78.2 fL (81.0-99.0); MEAN CORPUSCULAR HEMOGLOBIN 25.1 pg (27.0-31.0); MONO # 0.3 K/uL (0.0-0.8); MONO % 15.9 % (0.0-10.0); NEUT # 1.3 K/uL (1.8-7.0); NEUT % 71.2 % (50.0-75.0); NRBC % 0.4 % (0.0-2.0); PLATELET COUNT 110 K/uL (130-400); RBC 3.33 Mil/uL (3.80-5.20); RED CELL DISTRIBUTION WIDTH 18.9 % (11.5-14.5)
[2018-08-08] MEDS: (Novolin R) Insulin Human Regular 100 units/ml vial SC SCH ×5 (08:04→21:54)
[2018-08-08 08:08] LABS: WHITE BLOOD COUNT 1.8 K/uL (4.8-10.8)
[2018-08-08 08:24] LABS: ALB/GLOB RATIO 1.2 (1.0-2.1); ALBUMIN 2.8 g/dL (3.5-5.0); ALT/SGPT 22 U/L (9-52); AST/SGOT 18 U/L (14-36); BLOOD UREA NITROGEN 14 mg/dL (7-17); CALCIUM 8.3 mg/dl (8.6-10.4); GFR NON-AFRICAN AMERICAN > 60
[2018-08-08 08:27] LABS: B-TYPE NATRIURETIC PEPTIDE 3790 pg/mL (0-900)
[2018-08-08] MEDS ORDERED: Heparin25000 units/250ml 1/2NS 25,000 UNITS/250 ML BAG IV PRN (09:45)
[2018-08-08 11:07] LABS: EOSINOPHIL 3 % (0-4); LYMPHOCYTE 12 % (20-40); MONOCYTE 21 % (0-10); NEUTROPHIL 64 % (50-75); TOTAL CELLS COUNTED 100
[2018-08-08 11:08] LABS: ANISOCYTOSIS SLIGHT; HYPOCHROMIC SLIGHT; OVALOCYTES SLIGHT; PLATELET ESTIMATE SLIGHTLY DECREASED (NORMAL)
--- NOTE | 2018-08-08 11:19 | CP.PCM.PN ---
Subjective - Date & Time of Evaluation Date of Evaluation: 08/08/18 Time of Evaluation: 11:16 - Subjective Subjective: pt denied discomfort transfered now to telemetry [id number] Objective - Vital Signs/Intake and Output Vital Signs (last 24 hours): Temp Pulse Resp BP Pulse Ox 97.6 F 96 H 20 147/90 96 08/08/18 07:30 08/08/18 07:30 08/08/18 07:30 08/08/18 07:30 08/08/18 07:30 Intake and Output: 08/08/18 08/08/18 06:59 18:59 Intake Total 588.6 Balance 588.6 - Medications Medications: Current Medications Acetaminophen (Tylenol 325mg Tab) 650 mg PO Q6 PRN PRN Reason: Fever >100.4 F Aspirin (Aspirin Chewable) 81 mg PO DAILY [facility] Last Admin: 08/08/18 09:45 Dose: 81 mg Dextrose (Glutose 15) 0 gm PO ONCE PRN; Protocol PRN Reason: Hypoglycemia Protocol Dextrose (Dextrose 50% Inj) 0 ml IV STAT PRN; Protocol PRN Reason: Hypoglycemia Protocol Glucagon (Glucagen Diagnostic Kit) 0 mg IM STAT PRN; Protocol PRN Reason: Hypoglycemia Protocol Dextrose (Dextrose 5% In Water 1000 Ml) 1,000 mls @ 0 mls/hr IV .Q0M PRN; Protocol PRN Reason: Hypoglycemia Protocol Cefepime HCl 2 gm/ Sodium (Chloride) 100 mls @ 200 mls/hr IVPB Q8H [facility]; Protocol Last Admin: 08/08/18 02:34 Dose: 200 mls/hr Sodium Chloride (Sodium Chloride 0.9%) 1,000 mls @ 50 mls/hr IV .Q20H [facility] Last Admin: 08/08/18 02:19 Dose: Not Given Heparin Sodium/Sodium Chloride (Heparin 64977 Units/250ml 1/2 Normal Saline) 25,000 units in 250 mls @ 14.356 mls/hr IV .[id number] PRN; Protocol PRN Reason: PROTOCOL Last Admin: 08/08/18 09:46 Dose: 15 units/kg/hr, 14.356 mls/hr Insulin Glargine (Lantus) 50 unit SC HS [facility] Last Admin: 08/07/18 22:26 Dose: 50 u Insulin Human Regular (Novolin R) 0 unit SC [facility]; Protocol Last Admin: 08/08/18 08:04 Dose: Not Given Lisinopril (Zestril) 2.5 mg PO DAILY [facility] Last Admin: 08/08/18 09:45 Dose: 2.5 mg Metoprolol Tartrate (Lopressor) 50 mg PO BID [facility] Last Admin: 08/08/18 09:45 Dose: 50 mg Potassium Chloride (Klor-Con 10) 10 meq PO BRK [facility] Rosuvastatin Calcium (Crestor) 10 mg PO HS [facility] Last Admin: 08/07/18 22:26 Dose: 10 mg Valacyclovir HCl (Valtrex) 500 mg PO Q12H [facility]; Protocol Last Admin: 08/08/18 04:18 Dose: 500 mg Verapamil HCl (Verapamil Inj) 2.5 mg IVP Q6H PRN PRN Reason: Heart rate - Labs Labs: 08/08/18 07:33 08/08/18 07:33 PT 16.1 SECONDS (9.7-12.2) H 08/05/18 11:12 INR 1.5 08/05/18 11:12 APTT 49 SECONDS (21-34) H 08/08/18 07:33 - Constitutional Appears: Non-toxic - Head Exam Head Exam: NORMAL INSPECTION - Eye Exam Eye Exam: Normal appearance Pupil Exam: NORMAL ACCOMODATION - ENT Exam ENT Exam: Normal Exam - Neck Exam Neck Exam: Normal Inspection - Respiratory Exam Respiratory Exam: Clear to Ausculation Bilateral - Cardiovascular Exam Cardiovascular Exam: Irregular Rhythm - GI/Abdominal Exam GI & Abdominal Exam: Normal Bowel Sounds - Rectal Exam Rectal Exam: Deferred - Extremities Exam Extremities Exam: Normal Inspection - Back Exam Back Exam: NORMAL INSPECTION - Neurological Exam Neurological Exam: Alert, Oriented x3 - Psychiatric Exam Psychiatric exam: Normal Affect - Skin Skin Exam: Pallor Assessment and Plan - Assessment and Plan (Free Text) Assessment: pancytopeania at fib cad s/p srgery prbnp hi r/o chf hypokaleamia Plan: as per orders
[2018-08-08] MEDS: Potassium Chloride 10 mEq ER Tab PO SCH (11:55)
--- NOTE | 2018-08-08 16:36 | CP.PCM.PN ---
Subjective - Date & Time of Evaluation Date of Evaluation: 08/08/18 Time of Evaluation: 16:35 - Subjective Subjective: Seen and examined No chest pain or dyspnea Objective - Vital Signs/Intake and Output Vital Signs (last 24 hours): Temp Pulse Resp BP Pulse Ox 97.6 F 103 H 20 147/90 96 08/08/18 07:30 08/08/18 16:12 08/08/18 07:30 08/08/18 07:30 08/08/18 07:30 Intake and Output: 08/08/18 08/08/18 06:59 18:59 Intake Total 588.6 Balance 588.6 - Medications Medications: Current Medications Acetaminophen (Tylenol 325mg Tab) 650 mg PO Q6 PRN PRN Reason: Fever >100.4 F Aspirin (Aspirin Chewable) 81 mg PO DAILY [facility] Last Admin: 08/08/18 09:45 Dose: 81 mg Dextrose (Glutose 15) 0 gm PO ONCE PRN; Protocol PRN Reason: Hypoglycemia Protocol Dextrose (Dextrose 50% Inj) 0 ml IV STAT PRN; Protocol PRN Reason: Hypoglycemia Protocol Glucagon (Glucagen Diagnostic Kit) 0 mg IM STAT PRN; Protocol PRN Reason: Hypoglycemia Protocol Cefepime HCl 2 gm/ Sodium (Chloride) 100 mls @ 200 mls/hr IVPB Q8H [facility]; Protocol Last Admin: 08/08/18 11:57 Dose: 200 mls/hr Sodium Chloride (Sodium Chloride 0.9%) 1,000 mls @ 50 mls/hr IV .Q20H [facility] Last Admin: 08/08/18 02:19 Dose: Not Given Insulin Glargine (Lantus) 50 unit SC HS [facility] Last Admin: 08/07/18 22:26 Dose: 50 u Insulin Human Regular (Novolin R) 0 unit SC ACHS [facility]; Protocol Last Admin: 08/08/18 14:39 Dose: 2 units Lisinopril (Zestril) 2.5 mg PO DAILY [facility] Last Admin: 08/08/18 09:45 Dose: 2.5 mg Metoprolol Tartrate (Lopressor) 75 mg PO BID [facility] Potassium Chloride (Klor-Con 10) 10 meq PO BRK [facility] Last Admin: 08/08/18 11:55 Dose: 10 meq Rivaroxaban (Xarelto) 20 mg PO DAILY [facility] Rosuvastatin Calcium (Crestor) 10 mg PO HS [facility] Last Admin: 08/07/18 22:26 Dose: 10 mg Valacyclovir HCl (Valtrex) 500 mg PO Q12H [facility]; Protocol Last Admin: 08/08/18 04:18 Dose: 500 mg Verapamil HCl (Verapamil Inj) 2.5 mg IVP Q6H PRN PRN Reason: Heart rate - Labs Labs: 08/08/18 07:33 08/08/18 07:33 PT 16.1 SECONDS (9.7-12.2) H 08/05/18 11:12 INR 1.5 08/05/18 11:12 APTT 49 SECONDS (21-34) H 08/08/18 07:33 - Constitutional Appears: Well - Eye Exam Pupil Exam: PERRL - ENT Exam ENT Exam: Mucous Membranes Moist - Respiratory Exam Respiratory Exam: Clear to Ausculation Bilateral, NORMAL BREATHING PATTERN - Cardiovascular Exam Cardiovascular Exam: Irregular Rhythm, +S1, +S2. absent: JVD - GI/Abdominal Exam GI & Abdominal Exam: Soft. absent: Tenderness - Extremities Exam Extremities Exam: absent: Calf Tenderness, Pedal Edema, Tenderness - Psychiatric Exam Psychiatric exam: Normal Affect, Normal Mood Assessment and Plan (1) Cardiac enzymes elevated Assessment & Plan: Assessment & Plan: Likely secondary to demand (Type II ME) in setting of rapid AF, fever. ACS ir less likely Patient is already on anticoagulation for AF Cont ith other cardiac meds and treat the underlying sepsis/neutropenia Status: Acute (2) Atherosclerotic heart disease of [place] coronary artery without angina pectoris Assessment & Plan: (2) Atherosclerotic heart disease of [place] coronary artery without angina pect rodriguez Assessment and Plan: Stble CAD S/p CABG 2 yearts ago Cont with ASA/bblocker/statin Status: Acute (3) Paroxysmal atrial fibrillation Assessment & Plan: (3) Paroxysmal atrial fibrillation Rate uncontrolled this am Will increase metoprolol to 75 mg twice daily Anticoagulation for stroke preventiion with rivaroxaban 20 mg daily at night Status: Acute (4) Ischemic cardiomyopathy Assessment & Plan: Echo with mild to moderatre LV dsfxn Clinically euvolemic Will add low dose CHELSY and titrate as tolerated Status: Acute
[2018-08-08] MEDS: (Lantus) Insulin Glargine, Recombinant SC SCH (21:54)
[2018-08-09] MEDS: (Novolin R) Insulin Human Regular 100 units/ml vial SC SCH ×3 (07:39→22:48)
[2018-08-09] MEDS: Potassium Chloride 10 mEq ER Tab PO SCH (08:14)
[2018-08-09 08:41] LABS: BASO % 1.3 % (0.0-2.0); EOS # 0.1 K/uL (0.0-0.7); EOS % 4.8 % (0.0-4.0); LYMPH # 0.2 K/uL (1.0-4.3); LYMPH % 6.5 % (20.0-40.0); MEAN CELL VOLUME 78.9 fL (81.0-99.0); MEAN CORPUSCULAR HEMOGLOBIN 25.8 pg (27.0-31.0); MEAN CORPUSCULAR HGB CONC 32.7 g/dL (33.0-37.0); MEAN PLATELET VOLUME 9.4 fL (7.2-11.7); MONO # 0.6 K/uL (0.0-0.8); MONO % 18.7 % (0.0-10.0); NEUT # 2.1 K/uL (1.8-7.0); NEUT % 68.7 % (50.0-75.0); NRBC % 0.8 % (0.0-2.0); PLATELET COUNT 108 K/uL (130-400); RBC 3.47 Mil/uL (3.80-5.20)
[2018-08-09 09:01] LABS: ALB/GLOB RATIO 1.1 (1.0-2.1); ALBUMIN 2.9 g/dL (3.5-5.0); ALT/SGPT 15 U/L (9-52); AST/SGOT 19 U/L (14-36); BLOOD UREA NITROGEN 12 mg/dL (7-17); CALCIUM 8.5 mg/dl (8.6-10.4); GFR NON-AFRICAN AMERICAN > 60
[2018-08-09 09:02] LABS: WHITE BLOOD COUNT 3.1 K/uL (4.8-10.8)
[2018-08-09 10:22] LABS: EOSINOPHIL 3 % (0-4); LYMPHOCYTE 10 % (20-40); MONOCYTE 18 % (0-10); NEUTROPHIL 69 % (50-75); PLATELET ESTIMATE SLIGHTLY DECREASED (NORMAL); TOTAL CELLS COUNTED 100
[2018-08-09 10:23] LABS: ANISOCYTOSIS SLIGHT; LARGE PLATELETS PRESENT; MICROCYTOSIS SLIGHT; OVALOCYTES SLIGHT; POIKILOCYTOSIS SLIGHT
--- NOTE | 2018-08-09 11:17 | CP.PCM.PN ---
Subjective - Date & Time of Evaluation Date of Evaluation: 08/09/18 Time of Evaluation: 11:15 - Subjective Subjective: Seen and examined No chest pain or dyspnea Objective - Vital Signs/Intake and Output Vital Signs (last 24 hours): Temp Pulse Resp BP Pulse Ox 97.9 F 90 20 130/76 96 08/09/18 07:52 08/09/18 07:52 08/09/18 07:52 08/09/18 10:27 08/09/18 07:52 - Medications Medications: Current Medications Acetaminophen (Tylenol 325mg Tab) 650 mg PO Q6 PRN PRN Reason: Fever >100.4 F Aspirin (Aspirin Chewable) 81 mg PO DAILY [facility] Last Admin: 08/09/18 10:27 Dose: 81 mg Dextrose (Glutose 15) 0 gm PO ONCE PRN; Protocol PRN Reason: Hypoglycemia Protocol Dextrose (Dextrose 50% Inj) 0 ml IV STAT PRN; Protocol PRN Reason: Hypoglycemia Protocol Diltiazem HCl (Cardizem) 30 mg PO QID [facility] Glucagon (Glucagen Diagnostic Kit) 0 mg IM STAT PRN; Protocol PRN Reason: Hypoglycemia Protocol Sodium Chloride (Sodium Chloride 0.9%) 1,000 mls @ 50 mls/hr IV .Q20H [facility] Last Admin: 08/08/18 21:54 Dose: Not Given Cefazolin Sodium 2,000 mg/ (Sodium Chloride) 50 mls @ 100 mls/hr IVPB Q8H [facility]; Protocol Last Admin: 08/09/18 08:14 Dose: 100 mls/hr Insulin Glargine (Lantus) 50 unit SC HS [facility] Last Admin: 08/08/18 21:54 Dose: 50 u Insulin Human Regular (Novolin R) 0 unit SC ACHS [facility]; Protocol Last Admin: 08/09/18 07:39 Dose: Not Given Lisinopril (Zestril) 2.5 mg PO DAILY [facility] Last Admin: 08/09/18 10:27 Dose: 2.5 mg Metoprolol Tartrate (Lopressor) 75 mg PO BID [facility] Last Admin: 08/09/18 10:27 Dose: 75 mg Potassium Chloride (Klor-Con 10) 10 meq PO BRK [facility] Last Admin: 08/09/18 08:14 Dose: 10 meq Rivaroxaban (Xarelto) 20 mg PO DAILY [facility] Last Admin: 08/09/18 10:27 Dose: 20 mg Rosuvastatin Calcium (Crestor) 10 mg PO HS [facility] Last Admin: 08/08/18 21:52 Dose: 10 mg Valacyclovir HCl (Valtrex) 500 mg PO Q12H [facility]; Protocol Last Admin: 08/09/18 04:25 Dose: 500 mg Verapamil HCl (Verapamil Inj) 2.5 mg IVP Q6H PRN PRN Reason: Heart rate - Labs Labs: 08/09/18 08:25 08/09/18 08:25 PT 16.1 SECONDS (9.7-12.2) H 08/05/18 11:12 INR 1.5 08/05/18 11:12 APTT 49 SECONDS (21-34) H 08/08/18 07:33 - Constitutional Appears: Well, Non-toxic - Head Exam Head Exam: ATRAUMATIC, NORMOCEPHALIC - Eye Exam Pupil Exam: PERRL - Respiratory Exam Respiratory Exam: Clear to Ausculation Bilateral - Cardiovascular Exam Cardiovascular Exam: Tachycardia, Irregular Rhythm, +S1, +S2. absent: JVD - GI/Abdominal Exam GI & Abdominal Exam: Soft, Tenderness - Neurological Exam Neurological Exam: Alert, CN II-XII Intact, Oriented x3 - Skin Skin Exam: Normal Color Assessment and Plan (1) Cardiac enzymes elevated Assessment & Plan: Demand ischemia No further ischemia work-up at this time Status: Acute (2) Atherosclerotic heart disease of [place] coronary artery without angina pectoris Assessment & Plan: Stable CAD Cont with bblocker/aspirin/statin Status: Acute (3) Paroxysmal atrial fibrillation Assessment & Plan: Rate uncontrolled Cont with metoprolol Will add diltiazem 30 mg [id number] Cont with anticoagulation If rate remains uncontrolled, will consider DEVONTE/CV Status: Acute (4) Ischemic cardiomyopathy Status: Acute
--- NOTE | 2018-08-09 11:57 | CP.PCM.PN ---
Subjective - Date & Time of Evaluation Date of Evaluation: 08/09/18 Time of Evaluation: 11:54 - Subjective Subjective: pt feels beter Objective - Vital Signs/Intake and Output Vital Signs (last 24 hours): Temp Pulse Resp BP Pulse Ox 97.9 F 90 20 130/76 96 08/09/18 07:52 08/09/18 07:52 08/09/18 07:52 08/09/18 10:27 08/09/18 07:52 - Medications Medications: Current Medications Acetaminophen (Tylenol 325mg Tab) 650 mg PO Q6 PRN PRN Reason: Fever >100.4 F Aspirin (Aspirin Chewable) 81 mg PO DAILY [facility] Last Admin: 08/09/18 10:27 Dose: 81 mg Dextrose (Glutose 15) 0 gm PO ONCE PRN; Protocol PRN Reason: Hypoglycemia Protocol Dextrose (Dextrose 50% Inj) 0 ml IV STAT PRN; Protocol PRN Reason: Hypoglycemia Protocol Diltiazem HCl (Cardizem) 30 mg PO QID [facility] Glucagon (Glucagen Diagnostic Kit) 0 mg IM STAT PRN; Protocol PRN Reason: Hypoglycemia Protocol Cefazolin Sodium 2,000 mg/ (Sodium Chloride) 50 mls @ 100 mls/hr IVPB Q8H [facility]; Protocol Last Admin: 08/09/18 08:14 Dose: 100 mls/hr Insulin Glargine (Lantus) 50 unit SC [facility] Last Admin: 08/08/18 21:54 Dose: 50 u Insulin Human Regular (Novolin R) 0 unit SC [facility]; Protocol Last Admin: 08/09/18 07:39 Dose: Not Given Lisinopril (Zestril) 2.5 mg PO DAILY [facility] Last Admin: 08/09/18 10:27 Dose: 2.5 mg Metoprolol Tartrate (Lopressor) 75 mg PO BID [facility] Last Admin: 08/09/18 10:27 Dose: 75 mg Potassium Chloride (Klor-Con 10) 10 meq PO BRK [facility] Last Admin: 08/09/18 08:14 Dose: 10 meq Rivaroxaban (Xarelto) 20 mg PO DAILY [facility] Last Admin: 08/09/18 10:27 Dose: 20 mg Rosuvastatin Calcium (Crestor) 10 mg PO HS [facility] Last Admin: 08/08/18 21:52 Dose: 10 mg Valacyclovir HCl (Valtrex) 500 mg PO Q12H [facility]; Protocol Last Admin: 08/09/18 04:25 Dose: 500 mg Verapamil HCl (Verapamil Inj) 2.5 mg IVP Q6H PRN PRN Reason: Heart rate - Labs Labs: 08/09/18 08:25 08/09/18 08:25 PT 16.1 SECONDS (9.7-12.2) H 08/05/18 11:12 INR 1.5 08/05/18 11:12 APTT 49 SECONDS (21-34) H 08/08/18 07:33 - Respiratory Exam Respiratory Exam: NORMAL BREATHING PATTERN - Back Exam Back Exam: NORMAL INSPECTION - Skin Skin Exam: Normal Color Assessment and Plan - Assessment and Plan (Free Text) Assessment: pancytopeania improving at fib s/p coronary by pass s/p cemo for lymphoma Plan: will discuss with consultants plan for disch
--- NOTE | 2018-08-09 16:01 | CP.PCM.PN ---
Subjective - Date & Time of Evaluation Date of Evaluation: 08/09/18 Time of Evaluation: 07:00 - Subjective Subjective: afebrile alert denies chest pain cough or SOB cardio on board rate controlled c/s urine + MSSA still neutropenic await Heme eval Objective - Vital Signs/Intake and Output Vital Signs (last 24 hours): Temp Pulse Resp BP Pulse Ox 97.9 F 90 20 130/76 96 08/09/18 07:52 08/09/18 07:52 08/09/18 07:52 08/09/18 10:27 08/09/18 07:52 - Medications Medications: Current Medications Acetaminophen (Tylenol 325mg Tab) 650 mg PO Q6 PRN PRN Reason: Fever >100.4 F Aspirin (Aspirin Chewable) 81 mg PO DAILY [facility] Last Admin: 08/09/18 10:27 Dose: 81 mg Dextrose (Glutose 15) 0 gm PO ONCE PRN; Protocol PRN Reason: Hypoglycemia Protocol Dextrose (Dextrose 50% Inj) 0 ml IV STAT PRN; Protocol PRN Reason: Hypoglycemia Protocol Diltiazem HCl (Cardizem) 30 mg PO QID [facility] Last Admin: 08/09/18 13:56 Dose: 30 mg Glucagon (Glucagen Diagnostic Kit) 0 mg IM STAT PRN; Protocol PRN Reason: Hypoglycemia Protocol Cefazolin Sodium 2,000 mg/ (Sodium Chloride) 50 mls @ 100 mls/hr IVPB Q8H [facility]; Protocol Last Admin: 08/09/18 08:14 Dose: 100 mls/hr Insulin Glargine (Lantus) 50 unit SC HS [facility] Last Admin: 08/08/18 21:54 Dose: 50 u Insulin Human Regular (Novolin R) 0 unit SC ACHS [facility]; Protocol Last Admin: 08/09/18 07:39 Dose: Not Given Lisinopril (Zestril) 2.5 mg PO DAILY [facility] Last Admin: 08/09/18 10:27 Dose: 2.5 mg Metoprolol Tartrate (Lopressor) 75 mg PO BID [facility] Last Admin: 08/09/18 10:27 Dose: 75 mg Potassium Chloride (Klor-Con 10) 10 meq PO BRK [facility] Last Admin: 08/09/18 08:14 Dose: 10 meq Rivaroxaban (Xarelto) 20 mg PO DAILY [facility] Last Admin: 08/09/18 10:27 Dose: 20 mg Rosuvastatin Calcium (Crestor) 10 mg PO HS [facility] Last Admin: 08/08/18 21:52 Dose: 10 mg Valacyclovir HCl (Valtrex) 500 mg PO Q12H [facility]; Protocol Last Admin: 08/09/18 04:25 Dose: 500 mg Verapamil HCl (Verapamil Inj) 2.5 mg IVP Q6H PRN PRN Reason: Heart rate - Labs Labs: 08/09/18 08:25 08/09/18 08:25 PT 16.1 SECONDS (9.7-12.2) H 08/05/18 11:12 INR 1.5 08/05/18 11:12 APTT 49 SECONDS (21-34) H 08/08/18 07:33 - Constitutional Appears: Non-toxic, Chronically Ill - Head Exam Head Exam: NORMOCEPHALIC - Eye Exam Eye Exam: absent: Scleral icterus - ENT Exam ENT Exam: Mucous Membranes Dry - Neck Exam Neck Exam: absent: Lymphadenopathy - Respiratory Exam Respiratory Exam: Decreased Breath Sounds - Cardiovascular Exam Cardiovascular Exam: REGULAR RHYTHM - GI/Abdominal Exam GI & Abdominal Exam: Distended - Rectal Exam Rectal Exam: Deferred - Exam Exam: NORMAL INSPECTION - Extremities Exam Extremities Exam: absent: Pedal Edema - Back Exam Back Exam: absent: CVA tenderness (L), CVA tenderness (R) - Neurological Exam Neurological Exam: Alert, Awake, Oriented x3 Neuro motor strength exam: Left Upper Extremity: 5, Right Upper Extremity: 4, Left Lower Extremity: 5, Right Lower Extremity: 4 - Psychiatric Exam Psychiatric exam: Normal Mood - Skin Skin Exam: Dry Assessment and Plan (1) Fever and neutropenia Status: Acute (2) Lymphoma Status: Acute (3) History of CVA with residual deficit Status: Acute (4) Atrial fibrillation Status: Acute (5) Sepsis Status: Acute (6) Diabetes mellitus Status: Acute - Assessment and Plan (Free Text) Assessment: cont iv antibiotics heme follow up
[2018-08-09] MEDS: (Lantus) Insulin Glargine, Recombinant SC SCH (22:47)
--- NOTE | 2018-08-10 01:49 | CP.PCM.PN ---
Subjective - Date & Time of Evaluation Date of Evaluation: 08/07/18 Time of Evaluation: 16:00 - Subjective Subjective: Feeling better Objective - Vital Signs/Intake and Output Vital Signs (last 24 hours): Temp Pulse Resp BP Pulse Ox 97.3 F L 83 20 126/72 95 08/09/18 16:00 08/09/18 16:00 08/09/18 16:00 08/09/18 17:31 08/09/18 16:00 - Medications Medications: Current Medications Acetaminophen (Tylenol 325mg Tab) 650 mg PO Q6 PRN PRN Reason: Fever >100.4 F Aspirin (Aspirin Chewable) 81 mg PO DAILY [facility] Last Admin: 08/09/18 10:27 Dose: 81 mg Dextrose (Glutose 15) 0 gm PO ONCE PRN; Protocol PRN Reason: Hypoglycemia Protocol Dextrose (Dextrose 50% Inj) 0 ml IV STAT PRN; Protocol PRN Reason: Hypoglycemia Protocol Diltiazem HCl (Cardizem) 30 mg PO QID [facility] Last Admin: 08/09/18 22:48 Dose: 30 mg Glucagon (Glucagen Diagnostic Kit) 0 mg IM STAT PRN; Protocol PRN Reason: Hypoglycemia Protocol Cefazolin Sodium 2,000 mg/ (Sodium Chloride) 50 mls @ 100 mls/hr IVPB Q8H [facility]; Protocol Last Admin: 08/10/18 00:32 Dose: 100 mls/hr Insulin Glargine (Lantus) 50 unit SC [facility] Last Admin: 08/09/18 22:47 Dose: 50 u Insulin Human Regular (Novolin R) 0 unit SC [facility]; Protocol Last Admin: 08/09/18 22:48 Dose: Not Given Lisinopril (Zestril) 2.5 mg PO DAILY [facility] Last Admin: 08/09/18 10:27 Dose: 2.5 mg Metoprolol Tartrate (Lopressor) 75 mg PO BID [facility] Last Admin: 08/09/18 17:31 Dose: 75 mg Potassium Chloride (Klor-Con 10) 10 meq PO BRK [facility] Last Admin: 08/09/18 08:14 Dose: 10 meq Rivaroxaban (Xarelto) 20 mg PO DAILY [facility] Last Admin: 08/09/18 10:27 Dose: 20 mg Rosuvastatin Calcium (Crestor) 10 mg PO HS [facility] Last Admin: 08/09/18 22:48 Dose: 10 mg Valacyclovir HCl (Valtrex) 500 mg PO Q12H [facility]; Protocol Last Admin: 08/09/18 17:54 Dose: 500 mg Verapamil HCl (Verapamil Inj) 2.5 mg IVP Q6H PRN PRN Reason: Heart rate - Labs Labs: 08/09/18 08:25 08/09/18 08:25 PT 16.1 SECONDS (9.7-12.2) H 08/05/18 11:12 INR 1.5 08/05/18 11:12 APTT 49 SECONDS (21-34) H 08/08/18 07:33 - Head Exam Head Exam: ATRAUMATIC - Eye Exam Eye Exam: Normal appearance - ENT Exam ENT Exam: Mucous Membranes Dry - Respiratory Exam Respiratory Exam: NORMAL BREATHING PATTERN - Cardiovascular Exam Cardiovascular Exam: +S1, +S2 - GI/Abdominal Exam GI & Abdominal Exam: Normal Bowel Sounds Assessment and Plan (1) Pancytopenia Assessment & Plan: counts improving s/p growth factor cont. to monitor counts neutropenic precautions Status: Acute (2) Lymphoma Assessment & Plan: outpatient treatment Status: Acute
--- NOTE | 2018-08-10 01:50 | CP.PCM.PN ---
Subjective - Date & Time of Evaluation Date of Evaluation: 08/08/18 Time of Evaluation: 17:00 - Subjective Subjective: Feeling better Objective - Vital Signs/Intake and Output Vital Signs (last 24 hours): Temp Pulse Resp BP Pulse Ox 97.9 F 82 20 119/68 99 08/09/18 23:38 08/09/18 23:38 08/09/18 23:38 08/09/18 23:38 08/09/18 23:38 - Medications Medications: Current Medications Acetaminophen (Tylenol 325mg Tab) 650 mg PO Q6 PRN PRN Reason: Fever >100.4 F Aspirin (Aspirin Chewable) 81 mg PO DAILY [facility] Last Admin: 08/09/18 10:27 Dose: 81 mg Dextrose (Glutose 15) 0 gm PO ONCE PRN; Protocol PRN Reason: Hypoglycemia Protocol Dextrose (Dextrose 50% Inj) 0 ml IV STAT PRN; Protocol PRN Reason: Hypoglycemia Protocol Diltiazem HCl (Cardizem) 30 mg PO QID [facility] Last Admin: 08/09/18 22:48 Dose: 30 mg Glucagon (Glucagen Diagnostic Kit) 0 mg IM STAT PRN; Protocol PRN Reason: Hypoglycemia Protocol Cefazolin Sodium 2,000 mg/ (Sodium Chloride) 50 mls @ 100 mls/hr IVPB Q8H [facility]; Protocol Last Admin: 08/10/18 00:32 Dose: 100 mls/hr Insulin Glargine (Lantus) 50 unit SC [facility] Last Admin: 08/09/18 22:47 Dose: 50 u Insulin Human Regular (Novolin R) 0 unit SC [facility]; Protocol Last Admin: 08/09/18 22:48 Dose: Not Given Lisinopril (Zestril) 2.5 mg PO DAILY [facility] Last Admin: 08/09/18 10:27 Dose: 2.5 mg Metoprolol Tartrate (Lopressor) 75 mg PO BID [facility] Last Admin: 08/09/18 17:31 Dose: 75 mg Potassium Chloride (Klor-Con 10) 10 meq PO BRK [facility] Last Admin: 08/09/18 08:14 Dose: 10 meq Rivaroxaban (Xarelto) 20 mg PO DAILY [facility] Last Admin: 08/09/18 10:27 Dose: 20 mg Rosuvastatin Calcium (Crestor) 10 mg PO HS [facility] Last Admin: 08/09/18 22:48 Dose: 10 mg Valacyclovir HCl (Valtrex) 500 mg PO Q12H [facility]; Protocol Last Admin: 08/09/18 17:54 Dose: 500 mg Verapamil HCl (Verapamil Inj) 2.5 mg IVP Q6H PRN PRN Reason: Heart rate - Labs Labs: 08/09/18 08:25 08/09/18 08:25 PT 16.1 SECONDS (9.7-12.2) H 08/05/18 11:12 INR 1.5 08/05/18 11:12 APTT 49 SECONDS (21-34) H 08/08/18 07:33 - Head Exam Head Exam: ATRAUMATIC - Eye Exam Eye Exam: Normal appearance - ENT Exam ENT Exam: Mucous Membranes Dry - Respiratory Exam Respiratory Exam: NORMAL BREATHING PATTERN - Cardiovascular Exam Cardiovascular Exam: +S1, +S2 - GI/Abdominal Exam GI & Abdominal Exam: Normal Bowel Sounds Assessment and Plan (1) Pancytopenia Assessment & Plan: secondary to chemotherapy counts improving with growth factor neutropenic precautions Status: Acute (2) Lymphoma Assessment & Plan: outpatient treatment Status: Acute
--- NOTE | 2018-08-10 01:51 | CP.PCM.PN ---
Subjective - Date & Time of Evaluation Date of Evaluation: 08/09/18 Time of Evaluation: 18:00 - Subjective Subjective: Feeling better. Objective - Vital Signs/Intake and Output Vital Signs (last 24 hours): Temp Pulse Resp BP Pulse Ox 97.9 F 82 20 119/68 99 08/09/18 23:38 08/09/18 23:38 08/09/18 23:38 08/09/18 23:38 08/09/18 23:38 - Medications Medications: Current Medications Acetaminophen (Tylenol 325mg Tab) 650 mg PO Q6 PRN PRN Reason: Fever >100.4 F Aspirin (Aspirin Chewable) 81 mg PO DAILY [facility] Last Admin: 08/09/18 10:27 Dose: 81 mg Dextrose (Glutose 15) 0 gm PO ONCE PRN; Protocol PRN Reason: Hypoglycemia Protocol Dextrose (Dextrose 50% Inj) 0 ml IV STAT PRN; Protocol PRN Reason: Hypoglycemia Protocol Diltiazem HCl (Cardizem) 30 mg PO QID [facility] Last Admin: 08/09/18 22:48 Dose: 30 mg Glucagon (Glucagen Diagnostic Kit) 0 mg IM STAT PRN; Protocol PRN Reason: Hypoglycemia Protocol Cefazolin Sodium 2,000 mg/ (Sodium Chloride) 50 mls @ 100 mls/hr IVPB Q8H [facility]; Protocol Last Admin: 08/10/18 00:32 Dose: 100 mls/hr Insulin Glargine (Lantus) 50 unit SC [facility] Last Admin: 08/09/18 22:47 Dose: 50 u Insulin Human Regular (Novolin R) 0 unit SC [facility]; Protocol Last Admin: 08/09/18 22:48 Dose: Not Given Lisinopril (Zestril) 2.5 mg PO DAILY [facility] Last Admin: 08/09/18 10:27 Dose: 2.5 mg Metoprolol Tartrate (Lopressor) 75 mg PO BID [facility] Last Admin: 08/09/18 17:31 Dose: 75 mg Potassium Chloride (Klor-Con 10) 10 meq PO BRK [facility] Last Admin: 08/09/18 08:14 Dose: 10 meq Rivaroxaban (Xarelto) 20 mg PO DAILY [facility] Last Admin: 08/09/18 10:27 Dose: 20 mg Rosuvastatin Calcium (Crestor) 10 mg PO HS [facility] Last Admin: 08/09/18 22:48 Dose: 10 mg Valacyclovir HCl (Valtrex) 500 mg PO Q12H [facility]; Protocol Last Admin: 08/09/18 17:54 Dose: 500 mg Verapamil HCl (Verapamil Inj) 2.5 mg IVP Q6H PRN PRN Reason: Heart rate - Labs Labs: 08/09/18 08:25 08/09/18 08:25 PT 16.1 SECONDS (9.7-12.2) H 08/05/18 11:12 INR 1.5 08/05/18 11:12 APTT 49 SECONDS (21-34) H 08/08/18 07:33 - Head Exam Head Exam: ATRAUMATIC - Eye Exam Eye Exam: Normal appearance - ENT Exam ENT Exam: Mucous Membranes Dry - Respiratory Exam Respiratory Exam: NORMAL BREATHING PATTERN - Cardiovascular Exam Cardiovascular Exam: +S1, +S2 - GI/Abdominal Exam GI & Abdominal Exam: Normal Bowel Sounds Assessment and Plan (1) Pancytopenia Assessment & Plan: neutropenia resolved s/p growth factor Status: Acute (2) Lymphoma Assessment & Plan: outpatient treatment with primary oncologist Status: Acute
[2018-08-10] MEDS: (Novolin R) Insulin Human Regular 100 units/ml vial SC SCH ×3 (07:37→17:30)
[2018-08-10] MEDS: Potassium Chloride 10 mEq ER Tab PO SCH (07:41)
[2018-08-10 07:44] VITALS: TEMP 97.8
[2018-08-10 08:10] LABS: BASO % 1.2 % (0.0-2.0); EOS # 0.1 K/uL (0.0-0.7); EOS % 4.7 % (0.0-4.0); HEMOGLOBIN 8.6 g/dL (11.0-16.0); LYMPH # 0.2 K/uL (1.0-4.3); LYMPH % 12.3 % (20.0-40.0); MEAN CELL VOLUME 79.2 fL (81.0-99.0); MEAN CORPUSCULAR HEMOGLOBIN 25.2 pg (27.0-31.0); MEAN CORPUSCULAR HGB CONC 31.8 g/dL (33.0-37.0); MEAN PLATELET VOLUME 9.6 fL (7.2-11.7); MONO # 0.4 K/uL (0.0-0.8); MONO % 21.2 % (0.0-10.0); NEUT # 1.1 K/uL (1.8-7.0); NEUT % 60.6 % (50.0-75.0); NRBC % 0.5 % (0.0-2.0); PLATELET COUNT 99 K/uL (130-400); RBC 3.42 Mil/uL (3.80-5.20); RED CELL DISTRIBUTION WIDTH 18.6 % (11.5-14.5)
[2018-08-10 08:23] LABS: ALB/GLOB RATIO 1.1 (1.0-2.1); ALBUMIN 2.8 g/dL (3.5-5.0); ALT/SGPT 18 U/L (9-52); AST/SGOT 17 U/L (14-36); BLOOD UREA NITROGEN 12 mg/dL (7-17); CALCIUM 8.5 mg/dl (8.6-10.4); GFR NON-AFRICAN AMERICAN > 60
[2018-08-10 08:24] LABS: WHITE BLOOD COUNT 1.8 K/uL (4.8-10.8)
[2018-08-10 09:45] LABS: BASOPHIL 1 % (0-2); EOSINOPHIL 9 % (0-4); LYMPHOCYTE 25 % (20-40); MONOCYTE 18 % (0-10); NEUTROPHIL 47 % (50-75); NUCLEATED RED BLOOD CELL 1 % (0-0); PLATELET ESTIMATE DECREASED (NORMAL); TOTAL CELLS COUNTED 100
[2018-08-10 09:46] LABS: ANISOCYTOSIS SLIGHT; HYPOCHROMIC SLIGHT; OVALOCYTES SLIGHT; POIKILOCYTOSIS SLIGHT; TARGET CELLS SLIGHT; TOXIC GRANULATION PRESENT
--- NOTE | 2018-08-10 12:42 | CP.PCM.PN ---
Subjective - Date & Time of Evaluation Date of Evaluation: 08/10/18 Time of Evaluation: 08:00 - Subjective Subjective: improving for d/c on PO rx Objective - Vital Signs/Intake and Output Vital Signs (last 24 hours): Temp Pulse Resp BP Pulse Ox 97.8 F 86 20 141/85 99 08/10/18 07:00 08/10/18 09:03 08/10/18 07:00 08/10/18 09:04 08/10/18 07:00 - Medications Medications: Current Medications Acetaminophen (Tylenol 325mg Tab) 650 mg PO Q6 PRN PRN Reason: Fever >100.4 F Aspirin (Aspirin Chewable) 81 mg PO DAILY [facility] Last Admin: 08/10/18 09:04 Dose: 81 mg Dextrose (Glutose 15) 0 gm PO ONCE PRN; Protocol PRN Reason: Hypoglycemia Protocol Dextrose (Dextrose 50% Inj) 0 ml IV STAT PRN; Protocol PRN Reason: Hypoglycemia Protocol Diltiazem HCl (Cardizem) 30 mg PO QID [facility] Last Admin: 08/10/18 09:04 Dose: 30 mg Glucagon (Glucagen Diagnostic Kit) 0 mg IM STAT PRN; Protocol PRN Reason: Hypoglycemia Protocol Cefazolin Sodium 2,000 mg/ (Sodium Chloride) 50 mls @ 100 mls/hr IVPB Q8H [facility]; Protocol Last Admin: 08/10/18 07:45 Dose: 100 mls/hr Insulin Glargine (Lantus) 50 unit SC [facility] Last Admin: 08/09/18 22:47 Dose: 50 u Insulin Human Regular (Novolin R) 0 unit SC [facility]; Protocol Last Admin: 08/10/18 12:09 Dose: Not Given Lisinopril (Zestril) 2.5 mg PO DAILY [facility] Last Admin: 08/10/18 09:04 Dose: 2.5 mg Metoprolol Tartrate (Lopressor) 75 mg PO BID [facility] Last Admin: 08/10/18 09:04 Dose: 75 mg Potassium Chloride (Klor-Con 10) 10 meq PO BRK [facility] Last Admin: 08/10/18 07:41 Dose: 10 meq Rivaroxaban (Xarelto) 20 mg PO DAILY [facility] Last Admin: 08/10/18 09:04 Dose: 20 mg Rosuvastatin Calcium (Crestor) 10 mg PO HS [facility] Last Admin: 08/09/18 22:48 Dose: 10 mg Valacyclovir HCl (Valtrex) 500 mg PO Q12H [facility]; Protocol Last Admin: 08/10/18 04:06 Dose: 500 mg Verapamil HCl (Verapamil Inj) 2.5 mg IVP Q6H PRN PRN Reason: Heart rate - Labs Labs: 08/10/18 07:56 08/10/18 07:56 PT 16.1 SECONDS (9.7-12.2) H 08/05/18 11:12 INR 1.5 08/05/18 11:12 APTT 49 SECONDS (21-34) H 08/08/18 07:33 - Constitutional Appears: Non-toxic, Chronically Ill - Head Exam Head Exam: NORMOCEPHALIC - Eye Exam Eye Exam: absent: Scleral icterus - ENT Exam ENT Exam: Mucous Membranes Dry, Normal External Ear Exam - Neck Exam Neck Exam: absent: Lymphadenopathy - Respiratory Exam Respiratory Exam: Decreased Breath Sounds - Cardiovascular Exam Cardiovascular Exam: REGULAR RHYTHM - GI/Abdominal Exam GI & Abdominal Exam: Distended, Soft - Rectal Exam Rectal Exam: Deferred - Exam Exam: NORMAL INSPECTION - Extremities Exam Extremities Exam: absent: Pedal Edema - Back Exam Back Exam: absent: CVA tenderness (L), CVA tenderness (R) Assessment and Plan (1) Fever and neutropenia Status: Acute (2) Lymphoma Status: Acute (3) History of CVA with residual deficit Status: Acute (4) Atrial fibrillation Status: Acute (5) Sepsis Status: Acute (6) Diabetes mellitus Status: Acute - Assessment and Plan (Free Text) Assessment: neutropenia resolving cont antibiotics follow up with PMD, Oncology
--- NOTE | 2018-08-10 15:08 | CP.PCM.PN ---
Subjective - Date & Time of Evaluation Date of Evaluation: 08/10/18 Time of Evaluation: 14:00 - Subjective Subjective: Patient seen today states feels better, denies any sob, chest pain, dizziness, palpitations , wants to go back to [place] ( appointment with her hem/on) a febrile HR controlled in 70-80 wbc - improved - 1.8 Objective - Vital Signs/Intake and Output Vital Signs (last 24 hours): Temp Pulse Resp BP Pulse Ox 97.8 F 72 20 112/73 99 08/10/18 07:00 08/10/18 13:23 08/10/18 07:00 08/10/18 13:23 08/10/18 07:00 - Medications Medications: Current Medications Acetaminophen (Tylenol 325mg Tab) 650 mg PO Q6 PRN PRN Reason: Fever >100.4 F Aspirin (Aspirin Chewable) 81 mg PO DAILY [facility] Last Admin: 08/10/18 09:04 Dose: 81 mg Dextrose (Glutose 15) 0 gm PO ONCE PRN; Protocol PRN Reason: Hypoglycemia Protocol Dextrose (Dextrose 50% Inj) 0 ml IV STAT PRN; Protocol PRN Reason: Hypoglycemia Protocol Diltiazem HCl (Cardizem) 30 mg PO QID [facility] Last Admin: 08/10/18 13:24 Dose: 30 mg Glucagon (Glucagen Diagnostic Kit) 0 mg IM STAT PRN; Protocol PRN Reason: Hypoglycemia Protocol Cefazolin Sodium 2,000 mg/ (Sodium Chloride) 50 mls @ 100 mls/hr IVPB Q8H [facility]; Protocol Last Admin: 08/10/18 07:45 Dose: 100 mls/hr Insulin Glargine (Lantus) 50 unit SC HS [facility] Last Admin: 08/09/18 22:47 Dose: 50 u Insulin Human Regular (Novolin R) 0 unit SC ACHS [facility]; Protocol Last Admin: 08/10/18 12:09 Dose: Not Given Lisinopril (Zestril) 2.5 mg PO DAILY [facility] Last Admin: 08/10/18 09:04 Dose: 2.5 mg Metoprolol Tartrate (Lopressor) 75 mg PO BID [facility] Last Admin: 08/10/18 09:04 Dose: 75 mg Potassium Chloride (Klor-Con 10) 10 meq PO BRK [facility] Last Admin: 08/10/18 07:41 Dose: 10 meq Rivaroxaban (Xarelto) 20 mg PO DAILY [facility] Last Admin: 08/10/18 09:04 Dose: 20 mg Rosuvastatin Calcium (Crestor) 10 mg PO HS [facility] Last Admin: 08/09/18 22:48 Dose: 10 mg Valacyclovir HCl (Valtrex) 500 mg PO Q12H [facility]; Protocol Last Admin: 08/10/18 04:06 Dose: 500 mg Verapamil HCl (Verapamil Inj) 2.5 mg IVP Q6H PRN PRN Reason: Heart rate - Labs Labs: 08/10/18 07:56 08/10/18 07:56 PT 16.1 SECONDS (9.7-12.2) H 08/05/18 11:12 INR 1.5 08/05/18 11:12 APTT 49 SECONDS (21-34) H 08/08/18 07:33 - Constitutional Appears: Non-toxic, No Acute Distress - Respiratory Exam Respiratory Exam: Clear to Ausculation Bilateral, NORMAL BREATHING PATTERN - Cardiovascular Exam Cardiovascular Exam: Irregular Rhythm, +S1, +S2 - Neurological Exam Neurological Exam: Alert, Oriented x3 Assessment and Plan - Assessment and Plan (Free Text) Assessment: A/P 62 year old female with a history of lymphoma on chemotherapy in [place], presented to the ER with palpitations and found to be in rapid a fib , pancytopenic and neutropenic. wbc- improved after growth factor- HR controlled with cardizem and stable in 70 and 80's blood culture - negative for 4 days urine culture-+ for staph and started on antibiotics D/W Dr. Lowery cleared for discharge from Hem/Onco standpoint and f/u with her own hem/oncologist in [place] D/w Dr. Grant , cleared for discharge from ID standpoint and continue keflex for UTI D/W , cleared for discharge today and f/u with PMD Discharge plan discussed with patient who understads and agrees with plan Discussed in details regarding blood work to be monitored ,patient stated she is lleaving tomorrow morning to [facility] and go to the [place] office as soon as she get there Patient instructed to avoid sick contacts and crowds to avoid infections because of neutropenia , pt verbalized understandings Patient instructed to returns to ED if symptoms returns or any other concerning symptoms
[2018-08-10 15:43] VITALS: BP 101/63; PULSE 71; O2SAT 96
--- NOTE | 2018-08-10 16:25 | CP.PCM.PN ---
Subjective - Date & Time of Evaluation Date of Evaluation: 08/10/18 Time of Evaluation: 16:20 - Subjective Subjective: pt feels much better Objective - Vital Signs/Intake and Output Vital Signs (last 24 hours): Temp Pulse Resp BP Pulse Ox 97.8 F 71 20 101/63 96 08/10/18 15:00 08/10/18 15:00 08/10/18 15:00 08/10/18 15:00 08/10/18 15:00 - Medications Medications: Current Medications Acetaminophen (Tylenol 325mg Tab) 650 mg PO Q6 PRN PRN Reason: Fever >100.4 F Aspirin (Aspirin Chewable) 81 mg PO DAILY [facility] Last Admin: 08/10/18 09:04 Dose: 81 mg Dextrose (Glutose 15) 0 gm PO ONCE PRN; Protocol PRN Reason: Hypoglycemia Protocol Dextrose (Dextrose 50% Inj) 0 ml IV STAT PRN; Protocol PRN Reason: Hypoglycemia Protocol Diltiazem HCl (Cardizem) 30 mg PO QID [facility] Last Admin: 08/10/18 13:24 Dose: 30 mg Glucagon (Glucagen Diagnostic Kit) 0 mg IM STAT PRN; Protocol PRN Reason: Hypoglycemia Protocol Cefazolin Sodium 2,000 mg/ (Sodium Chloride) 50 mls @ 100 mls/hr IVPB Q8H [facility]; Protocol Last Admin: 08/10/18 07:45 Dose: 100 mls/hr Insulin Glargine (Lantus) 50 unit SC [facility] Last Admin: 08/09/18 22:47 Dose: 50 u Insulin Human Regular (Novolin R) 0 unit SC [facility]; Protocol Last Admin: 08/10/18 12:09 Dose: Not Given Lisinopril (Zestril) 2.5 mg PO DAILY [facility] Last Admin: 08/10/18 09:04 Dose: 2.5 mg Metoprolol Tartrate (Lopressor) 75 mg PO BID [facility] Last Admin: 08/10/18 09:04 Dose: 75 mg Potassium Chloride (Klor-Con 10) 10 meq PO BRK [facility] Last Admin: 08/10/18 07:41 Dose: 10 meq Rivaroxaban (Xarelto) 20 mg PO DAILY [facility] Last Admin: 08/10/18 09:04 Dose: 20 mg Rosuvastatin Calcium (Crestor) 10 mg PO HS [facility] Last Admin: 08/09/18 22:48 Dose: 10 mg Valacyclovir HCl (Valtrex) 500 mg PO Q12H [facility]; Protocol Last Admin: 08/10/18 04:06 Dose: 500 mg Verapamil HCl (Verapamil Inj) 2.5 mg IVP Q6H PRN PRN Reason: Heart rate - Labs Labs: 08/10/18 07:56 08/10/18 07:56 PT 16.1 SECONDS (9.7-12.2) H 08/05/18 11:12 INR 1.5 08/05/18 11:12 APTT 49 SECONDS (21-34) H 08/08/18 07:33 - Constitutional Appears: Well - Head Exam Head Exam: ATRAUMATIC - Eye Exam Eye Exam: EOMI - ENT Exam ENT Exam: Mucous Membranes Moist - Respiratory Exam Respiratory Exam: Clear to Ausculation Bilateral - Cardiovascular Exam Cardiovascular Exam: Irregular Rhythm - GI/Abdominal Exam GI & Abdominal Exam: Soft, Normal Bowel Sounds - Exam External exam: NORMAL EXTERNAL EXAM - Extremities Exam Extremities Exam: Normal Inspection - Back Exam Back Exam: NORMAL INSPECTION - Neurological Exam Neurological Exam: Alert, Awake, Oriented x3 - Psychiatric Exam Psychiatric exam: Normal Affect, Normal Mood - Skin Skin Exam: Normal Color Assessment and Plan - Assessment and Plan (Free Text) Assessment: 1. Atrial rate is now controlled, on the 70's. Pt anticoagulated. 2. LV EF is moderately reduced based on previous echo. 3. Pt is to return to [place] today, and will f/u with her won fisher dip net in [place]. Pt advised to consider cardioversion if short of breath or heart rate is not well controlled, and to discuss with her fisher dip net there.
--- NOTE | 2018-08-10 22:57 | CP.PCM.PN ---
Subjective - Date & Time of Evaluation Date of Evaluation: 08/10/18 Time of Evaluation: 15:00 - Subjective Subjective: Feeling better. Objective - Vital Signs/Intake and Output Vital Signs (last 24 hours): Temp Pulse Resp BP Pulse Ox 97.8 F 71 20 101/63 96 08/10/18 15:00 08/10/18 15:00 08/10/18 15:00 08/10/18 15:00 08/10/18 15:00 - Labs Labs: 08/10/18 07:56 08/10/18 07:56 PT 16.1 SECONDS (9.7-12.2) H 08/05/18 11:12 INR 1.5 08/05/18 11:12 APTT 49 SECONDS (21-34) H 08/08/18 07:33 - Head Exam Head Exam: ATRAUMATIC - Eye Exam Eye Exam: Normal appearance - ENT Exam ENT Exam: Mucous Membranes Dry - Respiratory Exam Respiratory Exam: NORMAL BREATHING PATTERN - Cardiovascular Exam Cardiovascular Exam: +S1, +S2 - GI/Abdominal Exam GI & Abdominal Exam: Normal Bowel Sounds Assessment and Plan (1) Pancytopenia Assessment & Plan: secondary to chemotherapy s/p growth factor support Status: Acute (2) Lymphoma Assessment & Plan: outpatient f/u with primary oncologist. Status: Acute
--- NOTE | 2018-08-11 07:53 | PCM.HF ---
Heart Failure Core Measure - Heart Failure Ejection Fraction: 40 % or Greater CHELSY Inhibitor Prescribed: No Contraindication/Reason for not providing: ON arb Beta-Chelsey Prescribed: Metoprolol Succinate Angiotensin II Receptor Chelsey Prescribed: Yes AnticoagulationTherapy for Atrial Fibrillation/Atrialflutter: Yes Aldosterone Antagonist Prescribed: No Contraindication/Reason for not providing: EF>45 Hydralazine Nitrate Prescribed: No Contraindication/Reason for not providing: ON CALCIUM CHANNEL CHELSEY / EF>45 Implantable Cardioverter Defibrillator Therapy: No Contraindication/Reason for not providing: EF.45 Cardiac Resynchronization Therapy Prescribed: No Contraindication/Reason for not providing: EF>45 - Follow up Will be discharged to: Home Follow Up Date (must be within 7 days from discharge): 08/14/18
--- NOTE | 2018-08-13 05:27 | DS ---
HISTORY OF PRESENT ILLNESS AND HOSPITAL COURSE: This is a 62-year-old female who came into the emergency room because she has right upper chest pain and history of lymphoma. She was getting chemotherapy for that. She is status post CABG. When she came in here, she has fever of 101 and her pulse was 162 at the time of admission, respiration 28. Her blood pressure was 129/91. She had anemia, hemoglobin 10.1 and hematocrit 30. Her sugar was 445. Her white count was 0.4 only, so she has severe leukopenia, so she was admitted and was kept for reverse isolation. She was seen by Dr. Grant for infectious disease and leukopenia for which she was started on antibiotics and was seen also by Dr. Kash Lowery because of her leukopenia, and she was getting injections to improve her white count with Neupogen. Her lab was monitored. Also troponin was positive, and she was seen by Cardiology. It was happy that the patient was hemodynamically stable, so she was in statin, Lopressor and heparin and diet. The patient continued to be in the hospital on the same medications, and she was improving gradually. She was really feeling a lot better, and she has improvement of her white count which is 1.8 the last one. She has also hemoglobin of 8.6 and the chemistry was all fine, so the assessment was neutropenia resolving, and she was stable to go home. Continue antibiotics and see her oncologist. She will go back to [place]. FINAL DIAGNOSES: She has severe leukopenia secondary to the chemotherapy, status post treatment for lymphoma, status post coronary artery bypass grafting and she has also anemia. Una Beavers MD
--- NOTE | 2018-08-19 13:37 | PQF ---
PROVIDER RESPONSE TEXT: PT HAD UTI STAPH BACTERIA NO BACTREAMIA REVIEWER QUERY TEXT: Urosepsis Urosepsis is documented in the Medical Record. Per [employer], urosepsis is an imp recise term. Please clarify in documentation the specific type of infection: -Bacturia -Urinary tract infection (specify specific location such as bladder, pyelonephritis, etc.) -Sepsis due to a urinary tract infection -Othery The patient's Clinical Indicators include: urine culture + mssa blood culture negative Thank You Pooja Paulson ( inpatient molding line operator ) Query created by: Pooja Natarajan on 08/13/2018 11:06 AM Electronically signed by: Una Beavers MD 08/19/2018 1:35 PM
== END 2018-08-10 17:53 | disposition home or self-care (01) | DRG 808 ==
LOC: C.ER 10:51 → OBSVTOIN 12:48 → C.9I 12:48 → INTOOBSV 12:48 → C.5S 08-07 20:45
PROVIDERS: ADMIT Internal Medicine; ATTEND Internal Medicine
DX: D70.1 Agranulocytosis secondary to cancer chemotherapy (principal); I21.A1 Myocardial infarction type 2; C85.90 Non-Hodgkin lymphoma, unspecified, unspecified site; N39.0 Urinary tract infection, site not specified; D61.810 Antineoplastic chemotherapy induced pancytopenia; D70.3 Neutropenia due to infection; B95.61 Methicillin susceptible Staphylococcus aureus infection as the cause of diseases classified elsewhere; I10 Essential (primary) hypertension; I25.5 Ischemic cardiomyopathy; I48.0 Paroxysmal atrial fibrillation; I25.10 Atherosclerotic heart disease of native coronary artery without angina pectoris; E11.9 Type 2 diabetes mellitus without complications; T45.1X5A Adverse effect of antineoplastic and immunosuppressive drugs, initial encounter; L60.0 Ingrowing nail; R50.81 Fever presenting with conditions classified elsewhere; E78.5 Hyperlipidemia, unspecified; I69.30 Unspecified sequelae of cerebral infarction; Z95.1 Presence of aortocoronary bypass graft